=== PATIENT | female | born 1950 | race Caucasian/White ===

== ENCOUNTER 2016-06-22 15:34 | Inpatient (IN) | payer MEDICARE, BC, OTHER ==
[2016-06-22] MEDS ORDERED: ASPIRIN 81 MG CHEW PO STA (15:41)
[2016-06-22] MEDS ORDERED: DILTIAZEM 5 MG/ML 5 ML VIAL IVP STA (15:43)
--- NOTE | 2016-06-22 15:45 | ED ---
Chest Pain HPI - General Chief Complaint: Chest Pain Stated Complaint: Chest pain Time Seen by Provider: 06/22/16 15:40 Source: patient, EMS Mode of arrival: EMS Limitations: no limitations - History of Present Illness Initial Comments: This is 65-year-old woman brought by EMS to be evaluated for chest discomfort. The patient states that she had been having pains to the left upper chest going on for number of hours. She also had some shortness of breath. Patient did not have any diaphoresis, nausea or vomiting. Patient does have previous history of atrial fibrillation, and telemetry EKG from EMS did appear to show A. fib with RVR and a bundle-branch block. MD Complaint: chest pain Onset/Timin -: hour(s) Onset: during rest Pain Location: left chest Pain Radiation: none Severity: moderate Quality: aching Consistency: constant Improves With: nothing Worsens With: nothing Treatments Prior to Arrival: nitroglycerin - Related Data Home Medications Medication Instructions Recorded Confirmed Amiodarone [Cordarone] 400 mg PO DAILY 06/22/16 06/22/16 Anastrozole [Arimidex] 1 mg PO DAILY 06/22/16 06/22/16 Aspirin 325 mg PO HS 06/22/16 06/22/16 Benztropine Mesylate [Cogentin] 1 mg PO BID 06/22/16 06/22/16 Cholecalciferol [Vitamin D3] 4,000 unit PO HS 06/22/16 06/22/16 DULoxetine HCL [Cymbalta] 60 mg PO DAILY 06/22/16 06/22/16 Docusate [Colace] 100 mg PO HS 06/22/16 06/22/16 HYDROcodone/APAP 10-325MG [[place] 1 tab PO Q4HR PRN 06/22/16 06/22/16 10-325] Hydrocortisone Cream 1 applic TOPICAL BID 06/22/16 06/22/16 [Hydrocortisone 1% Cream] INSULIN LISPRO (humaLOG) [HumaLOG] 8 units SQ TID@0700,1100,1700 06/22/16 Insulin Glargine [Lantus] 20 unit SQ HS 06/22/16 06/22/16 Menthol [Biofreeze] 1 applic TOPICAL BID 06/22/16 06/22/16 Menthol [Biofreeze] 1 applic TOPICAL BID 06/22/16 06/22/16 Minerin Lotion(Emollient) 1 applic TOPICAL BID 06/22/16 06/22/16 Nystatin [Nystop] 1 applic TOPICAL BID 06/22/16 06/22/16 OLANZapine [ZyPREXA] 7.5 mg PO DAILY 06/22/16 06/22/16 Omeprazole 20 mg PO DAILY 06/22/16 06/22/16 Petrolatum, White [Aquaphor] 1 applic TOPICAL BID 06/22/16 06/22/16 Potassium Chloride ER [K-Dur 10] 10 meq PO BID 06/22/16 06/22/16 lamoTRIgine [LaMICtal] 150 mg PO Q12H 06/22/16 06/22/16 Allergies Allergy/AdvReac Type Severity Reaction Status Date / Time lorazepam [From Ativan] Allergy Unknown Verified 06/22/16 16:21 nabumetone [From Relafen] Allergy Rash/Hives Verified 06/22/16 16:21 Sulfa (Sulfonamide Allergy Rash/Hives Verified 06/22/16 16:21 Antibiotics) Review of Systems ROS Statement: Those systems with pertinent positive or pertinent negative responses have been documented in the HPI. ROS Other: All systems not noted in ROS Statement are negative. Constitutional: Denies: fever, chills Respiratory: Reports: dyspnea. Denies: cough, wheezes, hemoptysis Cardiovascular: Reports: chest pain, orthopnea. Denies: palpitations, edema, syncope Gastrointestinal: Denies: abdominal pain, nausea, vomiting Genitourinary: Denies: dysuria, hematuria Musculoskeletal: Denies: back pain Skin: Denies: rash Neurological: Denies: headache, weakness, numbness EKG Findings - EKG Comments: EKG Findings:: The patient's QRS morphology is similar to previous EKG from December 2010. - EKG Results: EKG: interpreted by ERMD EKG shows: atrial fibrillation (Rate is approximately 136 beats per minute) - Blocks, Somis, Hypertrophy, ST Abn: AV and intraventricular conduction: right bundle branch block (fixed/ intermittent, complete/incomplete), left posterior fascicular block Repolarization changes or abnormalities: ST or T wave suggestive of ischemia Past Medical History Past Medical History: Atrial Fibrillation, Coronary Artery Disease (CAD), Cancer , Chest Pain / Angina, Myocardial Infarction ([place]) Additional Past Medical History / Comment(s): sleep apnea; History of Any Multi-Drug Resistant Organisms: None Reported Past Surgical History: Cholecystectomy, Heart Catheterization With Stent, Hysterectomy Past Psychological History: No Psychological Hx Reported Smoking Status: Never smoker Past Alcohol Use History: None Reported Past Drug Use History: None Reported General Exam Limitations: no limitations General appearance: alert, in distress, obese Head exam: Present: atraumatic, normocephalic Eye exam: Present: normal appearance. Absent: scleral icterus, conjunctival injection ENT exam: Present: mucous membranes dry Neck exam: Present: normal inspection Respiratory exam: Present: rales (Bilateral bases). Absent: respiratory distress, wheezes, rhonchi, stridor, decreased breath sounds, prolonged expiratory Cardiovascular Exam: Present: tachycardia (Rate approximately 136 bpm), irregular rhythm, systolic murmur. Absent: normal heart sounds, diastolic murmur, rubs, gallop GI/Abdominal exam: Present: soft. Absent: distended, tenderness, guarding, rebound, mass Extremities exam: Present: normal inspection, normal capillary refill. Absent: pedal edema, calf tenderness Back exam: Present: normal inspection, full ROM. Absent: CVA tenderness (R), CVA tenderness (L) Neurological exam: Present: alert, oriented X3 Skin exam: Present: warm, dry, intact, normal color. Absent: rash Course Vital Signs 06/22/16 06/22/16 06/22/16 15:37 15:49 15:55 Temperature 99.1 F Pulse Rate 135 H 136 H Pulse Rate [ 141 H Legal Director ] Respiratory 18 18 Rate Blood Pressure 186/133 O2 Sat by Pulse 94 L 98 Oximetry 06/22/16 06/22/16 06/22/16 16:35 16:52 17:33 Temperature Pulse Rate 107 H 100 107 H Pulse Rate [ Legal Director ] Respiratory 18 16 18 Rate Blood Pressure 176/135 106/70 122/62 O2 Sat by Pulse 97 96 98 Oximetry 06/22/16 18:57 Temperature Pulse Rate 80 Pulse Rate [ Legal Director ] Respiratory 18 Rate Blood Pressure 104/56 O2 Sat by Pulse 98 Oximetry - Reevaluation(s) Reevaluation #2: 06/22/16 19:07 The patient has subsequently reverted to sinus rhythm with a rate of 80 with she also has a right bundle-branch block and a left posterior fascicular block. Chest Pain MDM - [facility] Patient is 65-year-old woman who presents with chest pain and found to be in atrial fibrillation with rapid ventricular rate. There was a good response to the Cardizem bolus which slowed the patient's rate to the 80s to 100. The chest pain also resolved following the Cardizem. The case was discussed with cardiology briefly and there treatment recommendations incorporated. Patient will be admitted for telemetry monitoring and serial enzymes. Critical Care Time Critical Care Time: Yes (35 minutes) Disposition Clinical Impression: Chest pain, Atrial fibrillation with rapid ventricular response Disposition: ADMITTED IP TO THIS [facility] Condition: Serious Referrals: Kael Jon MD [Primary Care Provider] - 1-2 days
[2016-06-22 15:50] LABS: Glucose,Whole Blood 157 mg/dL (75-99)
[2016-06-22 15:58] LABS: Basophils % (A) 0 %; CHCM 34.4; Eosinophils # (A) 0.1 k/uL (0-0.7); Eosinophils % (A) 1 %; HCT 39.9 % (34.0-46.0); HDW 2.76; HGB 12.7 gm/dL (11.4-16.0); Luc # (Auto) 0.17; Luc % (Auto) 2; Lymphocytes # (A) 0.4 k/uL (1.0-4.8); Lymphocytes % (A) 5 %; MCH 29.9 pg (25.0-35.0); MCV 93.6 fL (80.0-100.0); Mean Platelet Volume 7.1; Monocytes # (A) 0.3 k/uL (0-1.0); Monocytes % (A) 4 %; Neutrophils # (A) 6.7 k/uL (1.3-7.7); Neutrophils % (A) 87 %; RBC 4.26 m/uL (3.80-5.40); RDW 14.2 % (11.5-15.5); WBC 7.7 k/uL (3.8-10.6); WBC (Perox) 8.24
[2016-06-22] MEDS: DILTIAZEM 125 MG in SODIUM CHLORIDE 0.9% 100 ML IV ONE (16:00)
[2016-06-22 16:09] LABS: ALT 36 U/L (9-52); AST 24 U/L (14-36); Alkaline Phosphatase 94 U/L (38-126); Anion Gap 13 mmol/L; Blood Urea Nitrogen 23 mg/dL (7-17); Calcium 8.1 mg/dL (8.4-10.2); Carbon Dioxide 22 mmol/L (22-30); Chloride 104 mmol/L (98-107); Glucose 117 mg/dL (74-99); Magnesium 1.8 mg/dL (1.6-2.3); Non-African American GFR(MDRD) >60 (>60 ml/min/1.73 sqM); Potassium 5.2 mmol/L (3.5-5.1); Sodium 139 mmol/L (137-145); Total Bilirubin 0.6 mg/dL (0.2-1.3); Total Protein 6.5 g/dL (6.3-8.2)
[2016-06-22 16:12] LABS: INR 0.9 (<1.1); Prothrombin Time 9.5 sec (9.0-12.0)
[2016-06-22 16:15] LABS: Partial Thromboplastin Time 21.8 sec (22.0-30.0)
[2016-06-22 16:21] LABS: Creatine Kinase 80 U/L (30-135)
--- NOTE | 2016-06-22 16:25 | XR ---
EXAMINATION TYPE: XR chest 1V portable DATE OF EXAM: 06/22/2016 4:19 PM COMPARISON: NONE HISTORY: Dysrhythmia, chest pain, altered mental status TECHNIQUE: Single frontal view of the chest is obtained. FINDINGS: Patient is rotated. Port-A-Cath is present in the left pectoral region, distal tip overlyi ng the caval atrial junction level. There is no pneumonia, pneumothorax, or pleural effusion evident. Cardiac mediastinal silhouette, pulmonary vascularity and levon are within normal limits. IMPRESSION: No acute process.
[2016-06-22 16:33] LABS: Creatine Kinase MB 1.1 ng/mL (0.0-2.4); Troponin I <0.012 ng/mL (0.000-0.034)
[2016-06-22] MEDS ORDERED: ENALAPRILAT 1.25 MG/ML 1 ML VIAL IVP STA (16:41)
[2016-06-22] MEDS ORDERED: NITROGLYCERIN SL TABS 0.4 MG TAB SUBLINGUAL PRN (16:41)
[2016-06-22] MEDS ORDERED: MORPHINE SULFATE 2 MG/ML SYRINGE IVP PRN (16:41)
[2016-06-22] MEDS: SODIUM CHLORIDE 0.9% 1,000 ML IV SCH (17:38)
[2016-06-22] MEDS: ACETAMINOPHEN TAB 325 MG TAB PO PRN (20:11)
[2016-06-22 20:51] LABS: Glucose,Whole Blood 212 mg/dL (75-99)
[2016-06-22 22:52] LABS: Creatine Kinase 124 U/L (30-135)
[2016-06-22] MEDS ORDERED: HYDROcodone/APAP 10-325MG 1 EACH TAB PO PRN (22:56)
[2016-06-22 23:06] LABS: Creatine Kinase MB 1.6 ng/mL (0.0-2.4); Troponin I <0.012 ng/mL (0.000-0.034)
[2016-06-22] MEDS: INSULIN GLARGINE 100 UNIT/ML 10 ML VIAL SQ SCH (23:58)
[2016-06-22] MEDS: lamoTRIgine 100 MG TAB PO SCH (23:58)
[2016-06-23 03:27] LABS: Cholesterol 162 mg/dL (<200); HDL Cholesterol 42 mg/dL (40-60); Triglycerides 94 mg/dL (<150)
[2016-06-23 03:38] LABS: Creatine Kinase 128 U/L (30-135)
[2016-06-23 03:51] LABS: Creatine Kinase MB 1.6 ng/mL (0.0-2.4); Troponin I <0.012 ng/mL (0.000-0.034)
[2016-06-23 05:19] LABS: Appearance,Urine Cloudy (Clear); Bacteria,Urine Rare /hpf; Bilirubin,Urine Negative (Negative); Glucose,Urine (UA) Negative (Negative); Ketones,Urine Negative (Negative); Leukocyte Esterase,Urine Large (Negative); Nitrite,Urine Negative (Negative); PH, Urine 7.5 (5.0-8.0); Particle Count 2675; Protein,Urine Trace (Negative); RBC,Urine 9 /hpf (0-5); Specific Gravity,Urine 1.009 (1.001-1.035); Squamous Epithelial Cell,Urine 1 /hpf (0-4); UA Billing (MACRO vs. MICRO) MICRO; Urobilinogen,Urine <2.0 mg/dL (<2.0); WBC,Urine >182 /hpf (0-5)
[2016-06-23 06:35] LABS: Glucose,Whole Blood 107 mg/dL (75-99)
[2016-06-23] MEDS: PANTOPRAZOLE 40 MG TABLET PO SCH (06:47)
[2016-06-23] MEDS: INSULIN LISPRO (humaLOG) 300 UNIT/3 ML VIAL SQ SCH ×4 (06:48→22:46)
--- NOTE | 2016-06-23 08:43 | P.CRDCN ---
History of Present Illness Consult date: 06/23/16 Requesting physician: Shree Alford Consult reason: atrial fibrillation Chief complaint: Chest pain History of present illness: This is a 65-year-old female who resides at [facility], she has a history of diabetes, hyperlipidemia, no hypertension, patient denies nicotine dependence or EtOH use, prior arrhythmia, unsure exactly the details of that, dementia, frequent falls, bipolar disorder, sleep apnea, coronary artery disease, again exact details of that are not available at this time, she was brought to the hospital yesterday with symptoms of chest pain that she describes as very sharp in nature. She states that she was short of breath, nauseated, and sweaty with the pain, patient also has had a recent fracture of her sacrum secondary to fall. When I questioned the patient about her recent fall she states that she passes out each time she falls. She does get intermittent dizziness according to her. Again the history is somewhat unreliable because of the patient's history of dementia, she states that she seen a video coordinator here in town recently, there is no record of that in the office. On presentation here patient was found to be in atrial fibrillation with a rapid ventricular response and a right bundle branch block pattern. CBC normal, potassium 5.2, BUN 23, creatinine 0.9. Magnesium level I.8. Troponins 3 been negative. Positive UTI. Asked x-ray performed on admission does not reveal any acute process. At the time of my examination this morning, patient states she has mild sharp chest pain with no difficulty in breathing. Past Medical History Past Medical History: Atrial Fibrillation, Coronary Artery Disease (CAD), Cancer , Chest Pain / Angina, Diabetes Mellitus, GERD/Reflux, Hypertension, Osteoarthritis (OA), Sleep Apnea/CPAP/BIPAP Additional Past Medical History / Comment(s): PER PAST MEDICAL HX-ARTHRITIS,BP, VARICOSE VEINS, SINUS PROBLEMS, SLEEP APNEA-NO CPAP USED,GERD, BIPOLAR/MANIC DEPRESSION-PAST H[place]IZATION [place]ICIDAL THOUGHTS [place] [id number], HX OF FALLS (PAST FX TO SACRUM AND RT RIB), DX 12-04-15 MALIGNANT NEOPLASM UTERUS-PER ECF NO SX BUT HAS BEEN RECEIVING RADIATION TX.UTI'S. PER ECF NO HX THAT THEY ARE AWARE OF OK/CHF History of Any Multi-Drug Resistant Organisms: None Reported Past Surgical History: Adenoidectomy, Section, Cholecystectomy, Heart Catheterization With Stent, Hysterectomy, Tonsillectomy, Tubal Ligation Additional Past Surgical History / Comment(s): PER PAST HX IN 2007 HEART CATH(5 STENTS),KAMRAN CARPAL TUNNEL,[facility] INJ(BACK)/RADIO FREQ FACET BLOCK/SACRAL X2. Past Anesthesia/Blood Transfusion Reactions: Unable to Obtain Date of Last Stent Placement:: UNK Past Psychological History: No Psychological Hx Reported Smoking Status: Never smoker Past Alcohol Use History: None Reported Past Drug Use History: None Reported - Past Family History Father Family Medical History: Unable to Obtain Mother Family Medical History: Unable to Obtain Medications and Allergies Home Medications Medication Instructions Recorded Confirmed Type Amiodarone [Cordarone] 400 mg PO DAILY 06/22/16 06/22/16 History Anastrozole [Arimidex] 1 mg PO DAILY 06/22/16 06/22/16 History Aspirin 325 mg PO HS 06/22/16 06/22/16 History Benztropine Mesylate [Cogentin] 1 mg PO BID 06/22/16 06/22/16 History Cholecalciferol [Vitamin D3] 4,000 unit PO HS 06/22/16 06/22/16 History DULoxetine HCL [Cymbalta] 60 mg PO DAILY 06/22/16 06/22/16 History Docusate [Colace] 100 mg PO HS 06/22/16 06/22/16 History HYDROcodone/APAP 10-325MG [[place] 1 tab PO Q4HR PRN 06/22/16 06/22/16 History 10-325] Hydrocortisone Cream 1 applic TOPICAL BID 06/22/16 06/22/16 History [Hydrocortisone 1% Cream] INSULIN LISPRO (humaLOG) [HumaLOG] 8 units SQ TID@0700,1100,1700 06/22/16 History Insulin Glargine [Lantus] 20 unit SQ HS 06/22/16 06/22/16 History Menthol [Biofreeze] 1 applic TOPICAL BID 06/22/16 06/22/16 History Menthol [Biofreeze] 1 applic TOPICAL BID 06/22/16 06/22/16 History Minerin Lotion(Emollient) 1 applic TOPICAL BID 06/22/16 06/22/16 History Nystatin [Nystop] 1 applic TOPICAL BID 06/22/16 06/22/16 History OLANZapine [ZyPREXA] 7.5 mg PO DAILY 06/22/16 06/22/16 History Omeprazole 20 mg PO DAILY 06/22/16 06/22/16 History Petrolatum, White [Aquaphor] 1 applic TOPICAL BID 06/22/16 06/22/16 History Potassium Chloride ER [K-Dur 10] 10 meq PO BID 06/22/16 06/22/16 History lamoTRIgine [LaMICtal] 150 mg PO Q12H 06/22/16 06/22/16 History Allergies Allergy/AdvReac Type Severity Reaction Status Date / Time lorazepam [From Ativan] Allergy Unknown Verified 06/22/16 16:21 nabumetone [From Relafen] Allergy Rash/Hives Verified 06/22/16 16:21 Sulfa (Sulfonamide Allergy Rash/Hives Verified 06/22/16 16:21 Antibiotics) Physical Exam Vitals: Vital Signs Temp Pulse Pulse Pulse Resp BP BP 06/23/16 03:10 97.0 F L 76 18 92/53 06/23/16 00:00 97.1 F L 83 83 18 108/57 06/22/16 19:40 97.1 F L 83 83 18 116/58 06/22/16 18:57 80 18 104/56 06/22/16 17:33 107 H 18 122/62 06/22/16 16:52 100 16 106/70 Pulse Ox 06/23/16 03:10 95 06/23/16 00:00 96 06/22/16 19:40 96 06/22/16 18:57 98 06/22/16 17:33 98 06/22/16 16:52 96 Intake and Output 06/22/16 06/23/16 06/23/16 22:59 06:59 14:59 Intake Total 860 Output Total 200 1050 Balance -200 -190 Intake: IV 160 Sodium Chloride 0.9% 1, 160 000 ml @ 20 mls/hr IV . Q24H [facility] Rx#:[id number] Oral 700 Output: Urine 200 1050 Other: Voiding Method Toilet Toilet # Voids 1 Weight 90.5 kg PHYSICAL EXAMINATION: HEENT: Head is atraumatic, normocephalic. Pupils equal, round. Neck is supple. There is no elevated jugular venous pressure. HEART EXAMINATION: Heart S1 S2 1 systolic murmur is heard. CHEST EXAMINATION: Lungs are clear to auscultation and precussion. No chest wall tenderness is noted on palpation or with deep breathing. ABDOMEN: Soft, nontender. Bowel sounds are heard. No organomegaly noted. EXTREMITIES: 2+ peripheral pulses with no evidence of peripheral edema and no calf tenderness noted. NEUROLOGIC [patient is awake, alert and oriented -2 . Results 06/22/16 15:42 06/22/16 15:42 Cardiac Enzymes 06/22/16 06/23/16 Range/Units 21:53 02:57 CK-MB (CK-2) 1.6 1.6 (0.0-2.4) ng/mL Troponin I <0.012 <0.012 (0.000-0.034) ng/mL Lipids 06/23/16 Range/Units 02:57 Triglycerides 94 (<150) mg/dL Cholesterol 162 (<200) mg/dL HDL Cholesterol 42 (40-60) mg/dL Current Medications Generic Name Dose Route Start Last Admin Trade Name Freq PRN Reason Stop Dose Admin Acetaminophen 650 mg 06/22/16 16:41 06/22/16 20:11 Tylenol Tab PO 650 mg Q4HR PRN Administration Mild Pain Acetaminophen/Hydrocodone Bitart 1 each 06/22/16 22:56 [place] 10 PO Q4HR PRN Moderate-Severe Pain Amiodarone HCl 400 mg 06/23/16 09:00 Cordarone PO DAILY [facility] Anastrozole 1 mg 06/23/16 09:00 Arimidex PO DAILY [facility] Aspirin 325 mg 06/23/16 09:00 Aspirin PO DAILY [facility] Benztropine Mesylate 1 mg 06/23/16 09:00 Cogentin PO BID [facility] Cholecalciferol 4,000 unit 06/23/16 21:00 Vitamin D3 PO HS [facility] Docusate Sodium 100 mg 06/23/16 21:00 Colace PO HS [facility] Duloxetine HCl 60 mg 06/23/16 09:00 Cymbalta PO DAILY [facility] Hydrocortisone 1 applic 06/23/16 09:00 Hydrocortisone 1% Cream TOPICAL BID [facility] Diltiazem HCl 125 mg/ Sodium 125 mls @ 5 mls/hr 06/22/16 16:00 06/22/16 16:00 Chloride IV 06/23/16 15:59 5 mg/hr .Q24H ONE 5 mls/hr 5 MG/HR Administration Sodium Chloride 1,000 mls @ 20 mls/hr 06/22/16 16:45 06/22/16 17:38 Saline 0.9% IV 20 mls/hr .Q24H [facility] Administration Insulin Glargine 20 unit 06/22/16 23:00 06/22/16 23:58 Lantus SQ 20 unit HS [facility] Administration Insulin Human Lispro 0 unit 06/23/16 07:30 06/23/16 06:48 Humalog SQ Not Given ACHS [facility] Protocol Lamotrigine 150 mg 06/22/16 23:00 06/22/16 23:58 Lamictal PO 150 mg Q12H [facility] Administration Morphine Sulfate 2 mg 06/22/16 16:41 Morphine Sulfate (Inj) IVP Q5M PRN Chest Pain Multi-Ingred Cream/Lotion/Oil/Oint 1 applic 06/23/16 09:00 Eucerin Cream TOPICAL BID [facility] Nitroglycerin 0.4 mg 06/22/16 16:41 Nitrostat SUBLINGUAL Q5M PRN Chest Pain Nystatin 1 applic 06/23/16 09:00 Mycostatin Powder TOPICAL BID [facility] Olanzapine 7.5 mg 06/23/16 09:00 Zyprexa PO DAILY [facility] Pantoprazole Sodium 40 mg 06/23/16 07:30 06/23/16 06:47 Protonix PO 40 mg AC-BRKFST [facility] Administration Petrolatum 1 applic 06/23/16 09:00 Aquaphor TOPICAL BID [facility] Potassium Chloride 10 meq 06/23/16 09:00 K-Dur 10 PO BID [facility] Intake and Output 06/22/16 06/23/16 06/23/16 22:59 06:59 14:59 Intake Total 860 Output Total 200 1050 Balance -200 -190 Intake: IV 160 Sodium Chloride 0.9% 1, 160 000 ml @ 20 mls/hr IV . Q24H [facility] Rx#:[id number] Oral 700 Output: Urine 200 1050 Other: Voiding Method Toilet Toilet # Voids 1 Weight 90.5 kg EKG Interpretations (text) EKG shows atrial fibrillation with a rapid ventricular response and a right bundle branch block pattern. Assessment and Plan Plan: Assessment and plan #1 atrial fibrillation, paroxysmal in nature, with rapid ventricular response, patient currently in normal sinus rhythm. Right bundle branch block pattern. On Cardizem drip at 5 mg per hour currently. #2 chest pain, atypical in nature. Troponins negative 3. #3 diabetes #4 hyperlipidemia #5 history of coronary artery disease, exact details unavailable. #6 bipolar disorder #7 recent falls with questionable syncope #8 sacral fracture #9 questionable prior history of atrial fibrillation, on amiodarone 400 mg daily as an outpatient Plan We will obtain an echocardiogram with Doppler study. We will also obtain free T4 and TSH. Based on the patient's CHADSVASC score, she does need to be on anticoagulation for stroke prevention. We will start Eliquis 2-1/2 mg one tablet by mouth twice a day and check regarding coverage for this. We'll decrease her aspirin 81 mg daily. Discontinue Cardizem drip. Further recommendations to follow. DNP note has been reviewed, I agree with a documented findings and plan of care. Patient was seen and examined.
[2016-06-23] MEDS: DULoxetine HCL 60 MG CAPSULE.DR PO SCH (08:44)
[2016-06-23] MEDS: OLANZapine 2.5 MG TAB PO SCH (08:44)
[2016-06-23] MEDS: AMIODARONE 200 MG TAB PO SCH (08:44)
[2016-06-23] MEDS: BENZTROPINE MESYLATE 1 MG TAB PO SCH ×2 (08:44→21:29)
[2016-06-23] MEDS: ANASTROZOLE 1 MG TAB PO SCH (08:45)
[2016-06-23] MEDS: POTASSIUM CHLORIDE ER 10 MEQ TAB.ER.PRT PO SCH ×2 (08:45→21:31)
[2016-06-23] MEDS ORDERED: ASPIRIN 325 MG TAB PO SCH ×2 (09:00→21:00)
[2016-06-23] MEDS ORDERED: NON-FORMULARY DRUG (Menthol [Biofreeze] 1 APPLIC) TOPICAL SCH (09:00)
[2016-06-23] MEDS: DILTIAZEM 125 MG in SODIUM CHLORIDE 0.9% 100 ML IV ONE (09:18)
[2016-06-23 10:24] LABS: Hemoglobin A1C 6.3 % (4.2-6.1)
[2016-06-23 11:44] LABS: Glucose,Whole Blood 111 mg/dL (75-99)
[2016-06-23] MEDS: APIXABAN 2.5 MG TABLET PO SCH ×2 (11:57→21:29)
[2016-06-23] MEDS: ASPIRIN 81 MG CHEW PO SCH (12:28)
[2016-06-23] MEDS: HYDROCORTISONE 1% CREAM 30 GM TUBE TOPICAL SCH ×2 (12:31→22:46)
[2016-06-23] MEDS: NYSTATIN 100,000 UNIT/GM POWD 15 GM TOPICAL SCH ×2 (12:31→21:30)
[2016-06-23] MEDS: MINERAL OIL-WHITE PETROLATUM 120 GM JAR TOPICAL SCH ×2 (12:31→22:47)
[2016-06-23] MEDS: PETROLATUM, WHITE OINT 50 GM TUBE TOPICAL SCH ×2 (12:32→21:30)
[2016-06-23] MEDS: lamoTRIgine 100 MG TAB PO SCH ×2 (12:33→22:53)
--- NOTE | 2016-06-23 12:39 | ECHOF ---
Referral Reason:chest pain MEASUREMENTS -------- HEIGHT: 172.7 cm WEIGHT: 90.3 kg BP: 108/58 RVIDd: 2.9 cm (< 3.3) IVSd: 1.1 cm (0.6 - 1.1) LVIDd: 4.5 cm (3.9 - 5.3) LVPWd: 1.0 cm (0.6 - 1.1) IVSs: 1.7 cm LVIDs: 2.7 cm LVPWs: 1.4 cm LA Diam: 3.6 cm (2.7 - 3.8) LAESV Index (A-L): 26.69 ml/m Ao Diam: 3.5 cm (2.0 - 3.7) AV Cusp: 1.7 cm (1.5 - 2.6) LA Diam: 3.6 cm (2.7 - 3.8) MV EXCURSION: 16.659 mm (> 18.000) MV EF SLOPE: 58 mm/s (70 - 150) EPSS: 1.1 cm MV E Brendan: 0.82 m/s MV DecT: 270 ms MV A Brendan: 0.35 m/s MV E/A Ratio: 2.33 RAP: 5.00 mmHg RVSP: 32.90 mmHg FINDINGS -------- Undetermined rhythm. This was a technically adequate study. There is mild concentric left ventricular hypertrophy. Overall left ventricular systolic function is low-normal with, an EF between 50 - 55 %. The right ventricle is normal in size. Normal LA size by volume 22+/-6 ml/m2. The right atrial size is normal. There is mild aortic valve sclerosis. There is no evidence of aortic regurgitation. Mild mitral annular calcification present. Mild mitral regurgitation is present. Mild tricuspid regurgitation present. There is no evidence of pulmonary hypertension. The right ventricular systolic pressure, as measured by Doppler, is 32.90mmHg. There is no pulmonic regurgitation present. The aortic root size is normal. There is no pericardial effusion. CONCLUSIONS -------- 1. There is mild concentric left ventricular hypertrophy. 2. Overall left ventricular systolic function is low-normal with, an EF between 50 - 55 %. 3. There is mild aortic valve sclerosis. 4. Mild mitral annular calcification present. 5. Mild mitral regurgitation is present. 6. Mild tricuspid regurgitation present. 7. There is no evidence of pulmonary hypertension. 8. The right ventricular systolic pressure, as measured by Doppler, is 32.90mmHg. ECONOMIC GEOGRAPHER: Vianca Rust RDCS
[2016-06-23 16:47] LABS: Glucose,Whole Blood 122 mg/dL (75-99)
--- NOTE | 2016-06-23 18:55 | HP ---
DATE OF ADMISSION: 06/22/2016 PRESENTING COMPLAINT: Heart racing. HISTORY OF PRESENTING COMPLAINT: This is a 65-year-old patient who is a resident of [facility] with a rather extensive medical history. Patient's chronic stable medical conditions include coronary artery disease, diabetes, GERD, hypertension, osteoarthritis, arthritis. Patient also has sleep apnea but does not use CPAP machine. Patient does use a walker; can walk a few steps. Patient was admitted with atrial fibrillation with rapid ventricular rate and was put on a Cardizem drip, admitted for the same. REVIEW OF SYSTEMS: CONSTITUTIONAL: Tired. HEENT: None. RESPIRATORY: None. CARDIOVASCULAR: As above. GASTROINTESTINAL: Heartburn. GENITOURINARY: None. MUSCULOSKELETAL: Pain in the joints. DERMATOLOGICAL: None. HEMATOLOGIC: None. LYMPHATICS: None. PSYCHIATRY: History of bipolar disorder. NEUROLOGICAL: None. PAST MEDICAL HISTORY: 1. Atrial fibrillation. 2. Coronary artery disease with stent. 3. Diabetes mellitus, type 2. 4. GERD. 5. Hypertension. 6. Osteoarthritis. 7. Sleep apnea; does not use CPAP. 8. Bipolar/manic depression. PAST SURGICAL HISTORY: 1. Adenoidectomy. 2. . 3. Cholecystectomy. 4. Cardiac catheterization with stent. 5. Hysterectomy. 6. Tonsillectomy. 7. Tubal ligation. 8. Bilateral carpal tunnel surgery. 9. Pain clinic procedure to the lower back. SOCIAL HISTORY: Resident of [facility]. Never a smoker. FAMILY HISTORY: Reviewed; noncontributory to presentation. HOME MEDICATIONS: 1. Lamictal 150 mg p.o. q.12. 2. Potassium 10 mEq b.i.d. 3. Aquaphor topically b.i.d. 4. Omeprazole 20 mg p.o. daily. 5. Zyprexa 7.5 p.o. daily. 6. Nystop topically b.i.d. 7. Minerin lotion topically b.i.d. 8. Biofreeze topically b.i.d. 9. Lantus 20 units subcutaneously at bedtime. 10. Lispro 8 units t.i.d. 11. Hydrocortisone topically b.i.d. 12. [place] 10 one tablet p.o. q.4 p.r.n. 13. Colace 100 mg p.o. at bedtime. 14. Cymbalta 60 mg p.o. daily. 15. Vitamin D3 4000 units p.o. at bedtime. 16. Cogentin 1 mg p.o. b.i.d. 17. Aspirin 325 p.o. at bedtime. 18. Arimidex 1 mg p.o. daily. 19. Cordarone 400 mg p.o. daily. ALLERGIES: 1. ATIVAN. 2. RELAFEN. 3. SULFA. PHYSICAL EXAMINATION: VITAL SIGNS ON PRESENTATION: Temperature 99.1, pulse 135, respiration 18, blood pressure 186/133. Pulse ox 94% on room air on presentation. GENERAL APPEARANCE: Lying in bed, not in distress. Tired-appearing. EYES: Pupils equal. Conjunctivae normal. HEENT: External appearance of nose and ears normal. Oral cavity normal. NECK: JVD not raised. Mass with palpable. RESPIRATORY: Effort normal. LUNGS: Fair air entry. CARDIOVASCULAR: Heart sounds irregular. No edema. ABDOMEN: Soft, nontender. Liver and spleen not palpable. LYMPHATIC: No lymph node palpable in neck or axillae. PSYCHIATRY: Awake. Answering simple questions. NEUROLOGICAL: Pupils equal. Cranial nerves grossly intact. INVESTIGATIONS: White count 7.7, hemoglobin 12.7. Potassium 5.2. BUN 23, creatinine 0.91. Troponin x3 negative. TSH 0.44. UA positive for leukocyte esterase. EKG: Atrial fibrillation with rapid ventricular rate. ASSESSMENT: 1. Persistent atrial fibrillation with rapid ventricular rate in a patient with underlying coronary artery disease. 2. Coronary artery disease with prior history of stent. 3. Diabetes mellitus, type 2, chronically on insulin. 4. Gastroesophageal reflux disease. 5. Essential hypertension. 6. Primary osteoarthritis in multiple joints, bilateral. 7. Bipolar disorder. PLAN: Patient was put on a Cardizem drip. Home medications are resumed. Cardiology was consulted.
[2016-06-23 20:34] LABS: Glucose,Whole Blood 150 mg/dL (75-99)
[2016-06-23] MEDS: CHOLECALCIFEROL 1,000 UNIT TAB PO SCH (21:29)
[2016-06-23] MEDS: DOCUSATE 100 MG CAP PO SCH (21:30)
[2016-06-23] MEDS: INSULIN GLARGINE 100 UNIT/ML 10 ML VIAL SQ SCH (21:30)
[2016-06-24 06:21] LABS: Glucose,Whole Blood 98 mg/dL (75-99)
[2016-06-24] MEDS: PANTOPRAZOLE 40 MG TABLET PO SCH (06:21)
[2016-06-24] MEDS: SODIUM CHLORIDE 0.9% 1,000 ML IV SCH ×2 (08:46→17:14)
[2016-06-24] MEDS: INSULIN LISPRO (humaLOG) 300 UNIT/3 ML VIAL SQ SCH ×4 (08:48→22:52)
[2016-06-24] MEDS: APIXABAN 2.5 MG TABLET PO SCH ×2 (08:49→22:50)
[2016-06-24] MEDS: ASPIRIN 81 MG CHEW PO SCH (08:49)
[2016-06-24] MEDS: ANASTROZOLE 1 MG TAB PO SCH (08:51)
[2016-06-24] MEDS: BENZTROPINE MESYLATE 1 MG TAB PO SCH ×2 (08:54→22:49)
[2016-06-24] MEDS: DULoxetine HCL 60 MG CAPSULE.DR PO SCH (08:55)
[2016-06-24] MEDS: MINERAL OIL-WHITE PETROLATUM 120 GM JAR TOPICAL SCH ×2 (08:55→22:53)
[2016-06-24] MEDS: NYSTATIN 100,000 UNIT/GM POWD 15 GM TOPICAL SCH ×2 (08:55→22:54)
[2016-06-24] MEDS: PETROLATUM, WHITE OINT 50 GM TUBE TOPICAL SCH ×2 (08:56→22:54)
[2016-06-24] MEDS: OLANZapine 2.5 MG TAB PO SCH (08:56)
[2016-06-24] MEDS: HYDROCORTISONE 1% CREAM 30 GM TUBE TOPICAL SCH ×2 (08:56→22:53)
[2016-06-24] MEDS: POTASSIUM CHLORIDE ER 10 MEQ TAB.ER.PRT PO SCH ×2 (08:57→23:06)
[2016-06-24] MEDS: lamoTRIgine 100 MG TAB PO SCH ×2 (11:23→23:07)
[2016-06-24 11:43] LABS: Glucose,Whole Blood 230 mg/dL (75-99)
[2016-06-24] MEDS: AMIODARONE 200 MG TAB PO SCH ×2 (12:08→12:28)
--- NOTE | 2016-06-24 15:08 | P.PN ---
Subjective Principal diagnosis: Paroxysmal atrial fibrillation This is a 65-year-old female who resides at [facility], she has a history of diabetes, hyperlipidemia, no hypertension, patient denies nicotine dependence or EtOH use, prior arrhythmia, unsure exactly the details of that, dementia, frequent falls, bipolar disorder, sleep apnea, coronary artery disease, again exact details of that are not available at this time, she was brought to the hospital yesterday with symptoms of chest pain that she describes as very sharp in nature. She states that she was short of breath, nauseated, and sweaty with the pain, patient also has had a recent fracture of her sacrum secondary to fall. When I questioned the patient about her recent fall she states that she passes out each time she falls. She does get intermittent dizziness according to her. Again the history is somewhat unreliable because of the patient's history of dementia, she states that she seen a section 8 property manager here in town recently, there is no record of that in the office. On presentation here patient was found to be in atrial fibrillation with a rapid ventricular response and a right bundle branch block pattern. 06/24/16 ... Patient seen and examined today, overall feeling much better. Echo was performed which revealed an ejection fraction of 50-55%. She is currently on Eliquis 2.5 mg one tablet by mouth twice a day, we will decrease amiodarone to 200 mg daily today. Objective - Vital Signs Vital signs: Vital Signs Temp 98.2 F 06/24/16 12:00 Pulse 89 06/24/16 12:00 Resp 18 06/24/16 12:00 BP 128/82 06/24/16 12:00 Pulse Ox 96 06/24/16 12:00 Intake & Output 06/23/16 06/24/16 06/24/16 18:59 06:59 18:59 Intake Total 876.5 940 Output Total 460 200 Balance 416.5 740 Weight 89.6 kg Intake: IV 240 Sodium Chloride 0.9% 1, 240 000 ml @ 20 mls/hr IV . Q24H [facility] Rx#:[id number] Intake, IV Titration 86.5 Amount Diltiazem 125 mg In 86.5 Sodium Chloride 0.9% 100 ml @ 5 MG/HR 5 mls/hr IV .Q24H [facility] Rx#:[id number] Oral 790 700 Output: Urine 460 200 Other: Voiding Method Toilet Toilet Toilet # Voids 1 - Exam PHYSICAL EXAMINATION: HEENT: Head is atraumatic, normocephalic. Pupils equal, round. Neck is supple. There is no elevated jugular venous pressure. HEART EXAMINATION: Heart S1 S2 1 systolic murmur is heard. CHEST EXAMINATION: Lungs are clear to auscultation and precussion. No chest wall tenderness is noted on palpation or with deep breathing. ABDOMEN: Soft, nontender. Bowel sounds are heard. No organomegaly noted. EXTREMITIES: 2+ peripheral pulses with no evidence of peripheral edema and no calf tenderness noted. NEUROLOGIC [patient is awake, alert and oriented -2 . - Labs CBC & Chem 7: 06/22/16 15:42 06/22/16 15:42 Labs: Abnormal Lab Results - Last 24 Hours (Table) 06/23/16 06/23/16 06/24/16 Range/Units 16:45 20:33 11:38 POC Glucose (mg/dL) 122 H 150 H 230 H (75-99) mg/dL Assessment and Plan Plan: Assessment and plan #1 atrial fibrillation, paroxysmal in nature, with rapid ventricular response, patient currently in normal sinus rhythm. Right bundle branch block pattern. On #2 chest pain, atypical in nature. Troponins negative 3. #3 diabetes #4 hyperlipidemia #5 history of coronary artery disease, exact details unavailable. #6 bipolar disorder #7 recent falls with questionable syncope #8 sacral fracture #9 questionable prior history of atrial fibrillation, on amiodarone 400 mg daily as an outpatient Plan From cardiology's perspective, we will recommend to continue the current medications. We will follow this patient with you now on an as-needed basis only, please don't hesitate to call with any questions. DNP note has been reviewed, I agree with a documented findings and plan of care. Patient was seen and examined.
[2016-06-24 16:52] LABS: Glucose,Whole Blood 164 mg/dL (75-99)
[2016-06-24] MEDS: ATENOLOL 12.5 MG TAB PO SCH (17:56)
[2016-06-24 21:07] LABS: Glucose,Whole Blood 133 mg/dL (75-99)
--- NOTE | 2016-06-24 22:19 | PN ---
DATE OF SERVICE: 06/24/2016 PRESENTING COMPLAINT: Heart racing. INTERVAL HISTORY: This patient was admitted with atrial fibrillation with rapid ventricular rate. Feeling better. Lying in bed. Did tolerate some diet. Review of systems done for constitutional, cardiovascular, GI, pulmonary; relevant findings as above. Current medications are reviewed that include Cordarone. On examination, temperature 98.6, pulse 81, respiration 18, blood pressure 123/69, pulse ox 98% on room air. GENERAL APPEARANCE: Lying in bed, more comfortable. EYES: Pupils equal. Conjunctivae normal. NECK: JVD not raised. Mass not palpable. RESPIRATORY: Effort normal. LUNGS: Fair air entry. CARDIOVASCULAR: Heart sounds irregular. No edema. ABDOMEN: Soft, nontender. PSYCHIATRY: Awake. Answering questions. INVESTIGATIONS: Accu-Cheks are noted. ASSESSMENT: 1. Persistent atrial fibrillation with rapid ventricular rate on presentation from underlying coronary artery disease. 2. Coronary artery disease with prior history of stent. 3. Diabetes mellitus, type 2, chronically on insulin. 4. Gastroesophageal reflux disease. 5. Essential hypertension. 6. Primary osteoarthritis in multiple joints, bilateral. 7. Bipolar disorder. 8. Acute urinary tract infection. PLAN: Patient has reverted back to sinus rhythm. Will put the patient on a small dose of atenolol to hopefully prevent her from going back in the rhythm. Looking at discharge planning. Will also add Keflex for the UTI.
[2016-06-24] MEDS: DOCUSATE 100 MG CAP PO SCH (22:50)
[2016-06-24] MEDS: CHOLECALCIFEROL 1,000 UNIT TAB PO SCH (22:50)
[2016-06-24] MEDS: INSULIN GLARGINE 100 UNIT/ML 10 ML VIAL SQ SCH (22:53)
[2016-06-24] MEDS: CEPHALEXIN 250 MG CAP PO SCH (23:05)
[2016-06-25 07:08] LABS: Glucose,Whole Blood 125 mg/dL (75-99)
[2016-06-25] MEDS: PANTOPRAZOLE 40 MG TABLET PO SCH (07:23)
[2016-06-25] MEDS: INSULIN LISPRO (humaLOG) 300 UNIT/3 ML VIAL SQ SCH ×2 (08:40→13:00)
[2016-06-25] MEDS: ASPIRIN 81 MG CHEW PO SCH (09:20)
[2016-06-25] MEDS: AMIODARONE 200 MG TAB PO SCH (09:20)
[2016-06-25] MEDS: ANASTROZOLE 1 MG TAB PO SCH (09:20)
[2016-06-25] MEDS: APIXABAN 2.5 MG TABLET PO SCH (09:20)
[2016-06-25] MEDS: CEPHALEXIN 250 MG CAP PO SCH ×2 (09:21→15:44)
[2016-06-25] MEDS: DULoxetine HCL 60 MG CAPSULE.DR PO SCH (09:21)
[2016-06-25] MEDS: BENZTROPINE MESYLATE 1 MG TAB PO SCH (09:21)
[2016-06-25] MEDS: ATENOLOL 12.5 MG TAB PO SCH (09:21)
[2016-06-25] MEDS: MINERAL OIL-WHITE PETROLATUM 120 GM JAR TOPICAL SCH (09:22)
[2016-06-25] MEDS: HYDROCORTISONE 1% CREAM 30 GM TUBE TOPICAL SCH (09:22)
[2016-06-25] MEDS: OLANZapine 2.5 MG TAB PO SCH (09:22)
[2016-06-25] MEDS: NYSTATIN 100,000 UNIT/GM POWD 15 GM TOPICAL SCH (09:22)
[2016-06-25] MEDS: lamoTRIgine 100 MG TAB PO SCH (09:23)
[2016-06-25] MEDS: POTASSIUM CHLORIDE ER 10 MEQ TAB.ER.PRT PO SCH (09:23)
[2016-06-25] MEDS: PETROLATUM, WHITE OINT 50 GM TUBE TOPICAL SCH (09:23)
[2016-06-25 11:36] LABS: Glucose,Whole Blood 195 mg/dL (75-99)
[2016-06-25 11:52] VITALS: RESP 18
--- NOTE | 2016-06-25 15:10 | DS ---
DATE OF ADMISSION: 06/22/2016 DATE OF DISCHARGE: FINAL DIAGNOSIS(ES): 1. Persistent atrial fibrillation with rapid ventricular rate, from underlying coronary artery disease. 2. Coronary artery disease with prior history of stent. 3. Diabetes mellitus type 2, chronically on insulin. 4. Gastroesophageal reflux disease. 5. Essential hypertension. 6. Primary osteoarthritis of multiple joints, bilateral. 7. Bipolar disorder, chronic. 8. Acute urinary tract infection. HOSPITAL COURSE: This patient presented with atrial fibrillation with rapid ventricular rate and reverted the patient sinus rhythm with amiodarone. Small dose of Atenolol was added. Also treated for UTI, comfortable at the time of discharge. On exam, lungs are clear. CARDIOVASCULAR: First and second seconds are normal. Care was discussed with the financial planner and the patient. 2-D echocardiogram showed EF of 50% to 55% percent. DISCHARGE MEDICATIONS: 1. Antiemetics 1 mg p.o. daily. 2. Cogentin 1 mg p.o. b.i.d. 3. Vitamin D3, 4000 q.h.s. 4. Cymbalta 60 mg p.o. daily. 5. Hydrocortisone 1% cream topical b.i.d. 6. Humalog 8 units subcutaneously t.i.d. 7. Lantus 20 units subcu q.h.s. 8. Biofreeze topical b.i.d. 9. Emollient application topical b.i.d. 10. Nystatin topical b.i.d. 11. Zyprexa 7.5 p.o. daily. 12. Omeprazole 20 mg p.o. daily. 13. Aquaphor topical b.i.d. 14. Potassium 10 mEq b.i.d. 15. Lamictal 150 mg p.o. q.12. 16. Cordarone 200 mg p.o. daily. 17. Eliquis 2.5 mg p.o. b.i.d. 18. Tenormin 12.5 p.o. daily. 19. Keflex 250 mg p.o. t.i.d. 15 capsules. 20. Strabane 10, 1 tablet q.4 p.r.n. 21. Humalog per scale a.c. and q.h.s. DISPOSITION: ECF. Follow up with Dr. Jon. LABS: CBC, BMP, 3 days. On examination, LUNGS: Clear. CARDIOVASCULAR: First and second seconds are normal. Answering questions appropriately. Discharge planning more than 35% minutes.
[2016-06-25] MEDS: ACETAMINOPHEN TAB 325 MG TAB PO PRN (15:44)
[2016-06-25 15:52] VITALS: BP 106/59; PULSE 76; TEMP 97.4
[2016-06-25 16:50] LABS: Glucose,Whole Blood 154 mg/dL (75-99)
== END 2016-06-25 17:35 | DRG 309 ==
LOC: EC 15:34 → 6SEL 16:41
PROVIDERS: ADMIT Hospitalist; ATTEND Hospitalist
DX: I48.1 Persistent atrial fibrillation (principal); N39.0 Urinary tract infection, site not specified; F03.90 Unspecified dementia, unspecified severity, without behavioral disturbance, psychotic disturbance, mood disturbance, and anxiety; E11.9 Type 2 diabetes mellitus without complications; I48.0 Paroxysmal atrial fibrillation; E78.5 Hyperlipidemia, unspecified; G47.30 Sleep apnea, unspecified; I10 Essential (primary) hypertension; I25.10 Atherosclerotic heart disease of native coronary artery without angina pectoris; I25.2 Old myocardial infarction; I45.10 Unspecified right bundle-branch block; K21.9 Gastro-esophageal reflux disease without esophagitis; M15.9 Polyosteoarthritis, unspecified; F31.9 Bipolar disorder, unspecified; R07.89 Other chest pain; Z95.5 Presence of coronary angioplasty implant and graft; Z79.4 Long term (current) use of insulin; Z79.899 Other long term (current) drug therapy; Z88.2 Allergy status to sulfonamides; Z88.8 Allergy status to other drugs, medicaments and biological substances; Z85.9 Personal history of malignant neoplasm, unspecified
CPT/HCPCS: 36415; 71010; 80053; 80061; 81001; 82550; 82553; 83036; 83735; 84439; 84443; 84484; 85025; 85610; 85730; 93005; 93306; 96365; 96366; 96376; 99291

== ENCOUNTER → 2017-02-15 | Outpatient (CLI) | payer MEDICARE, BC, OTHER ==
--- NOTE | 2017-02-15 15:23 | CT ---
EXAMINATION TYPE: CT brain wo/w con DATE OF EXAM: 02/15/2017 COMPARISON: 12/18/2010 HISTORY: Metabolic encephalopathy, breast cancer CT DLP: 3175.8 mGycm, Automated exposure control for dose reduction was used. CONTRAST: [address] of the brain is performed utilizing 3 mm thick sections through the posterior fossa and 3 mm thick sections through the remaining calvarium. Study is performed within 24 hours of arrival to the hospital. No abnormal hyperdensity is present to suggest an acute intracranial hemorrhage. No mass lesion is evident. No acute infarcts are evident. Periventricular white matter hypodensity is present, likely on the ba sis of chronic white matter ischemic changes. Ventricles and sulci are prominent for the patient age. Paranasal sinuses and mastoid air cells within the [id number] are clear. Hyperostosis frontalis in ternus is present, normal variant. No suspicious enhancement is evident. IMPRESSIONS: 1. Periventricular chronic appearing white matter ischemic changes with age-related atrophy. 2. No acute intracranial process. 3. No abnormal enhancement CT cervical spine. COMPARISON: None CT of the cervical spine is performed in the axial plane at 2 mm thick sections. Reconstructed image s in the coronal, and sagittal plane are reviewed on the computer. No acute fractures are evident. Vertebral body alignment is normal. Disc heights are preserved. Vertebral body heights are preserved. No spinal canal stenosis is evident. No neural foraminal stenosis is evident. IMPRESSIONS: 1. Normal CT cervical spine.
== END | disposition home or self-care (01) ==
LOC: RADCTMAIN 13:06
PROVIDERS: ATTEND Internal Medicine
DX: G93.41 Metabolic encephalopathy (principal)
CPT/HCPCS: 70470; Q9967

== ENCOUNTER → 2017-04-01 | Outpatient (CLI) | payer MEDICARE, BC, OTHER ==
[2017-04-01 19:03] LABS: Blood Urea Nitrogen 19 mg/dL (7-17); Non-African American GFR(MDRD) >60 (>60 ml/min/1.73 sqM)
--- NOTE | 2017-04-03 12:30 | CT ---
EXAMINATION TYPE: CT ChestAbdPelvis w con DATE OF EXAM: 04/01/2017 INDICATION: Ovarian cancer, breast cancer, uterine cancer COMPARISON: No prior CT of the chest abdomen or pelvis. CT DLP: 2618.50 mGycm CONTRAST: 100 mL Omnipaque 300. Oral contrast. TECHNIQUE: Axial images at 5 mm thick sections. Reconstructed images in the coronal plane. Delayed images through the kidneys. FINDINGS: CT CHEST: Portion of the thyroid visualized is normal. No suspicious lung nodules or focal infiltrates are present. Some minimal atelectatic type changes ap pears to be within the base of the lingula. Shotty lymphadenopathy is in the superior mediastinum. The ascending aorta diameter at the level of the main pulmonary artery is 3.6 cm. The main pulmonary artery diameter at the bifurcation is 3.1 cm. Coronary artery calcification is present. Reflux into the esophagus is evident. CT ABDOMEN: LAP-BAND is present. Liver: Normal Spleen: Normal Pancreas: Atrophic Adrenal glands: The adrenal glands are normal. Gallbladder: Surgically absent Kidneys: No masses are evident. No hydronephrosis is present. 0.9 cm cyst on the posterior mid righ t kidney. A 1.0 cm cyst at the posterior left kidney A 0.4 cm calcification may be at the inferior p ole left kidney which could be nonobstructing. The right renal artery is retrocaval Aorta: Vascular calcification is within the aorta. Inferior vena cava: Normal. CT PELVIS: Abundant fecal debris is throughout the colon. Loops of bowel within the abdomen and pelvis are normal. There are loops of bowel which are incom pletely distended or lack oral contrast limiting their evaluation. Appendix: Not visualized Urinary bladder: Normal. Genitourinary structures: Uterus and ovaries are surgically absent Osseous structures: No suspicious lytic or sclerotic lesions. IMPRESSIONS: 1. No suspicious changes to suggest metastatic disease.
== END | disposition home or self-care (01) ==
LOC: RADCTMAIN 17:49 → EEVIPCON 19:00
PROVIDERS: ATTEND Internal Medicine
DX: C50.919 Malignant neoplasm of unspecified site of unspecified female breast (principal); S22.31XD Fracture of one rib, right side, subsequent encounter for fracture with routine healing; M51.36 Other intervertebral disc degeneration, lumbar region; M62.81 Muscle weakness (generalized); E11.9 Type 2 diabetes mellitus without complications; I10 Essential (primary) hypertension; I25.10 Atherosclerotic heart disease of native coronary artery without angina pectoris; G47.30 Sleep apnea, unspecified; R48.8 Other symbolic dysfunctions; S32.10XD Unspecified fracture of sacrum, subsequent encounter for fracture with routine healing; I48.2 Chronic atrial fibrillation; C55 Malignant neoplasm of uterus, part unspecified; F31.9 Bipolar disorder, unspecified; G62.9 Polyneuropathy, unspecified; M54.5 Low back pain; Z91.81 History of falling; Z88.2 Allergy status to sulfonamides; Z88.8 Allergy status to other drugs, medicaments and biological substances; Z88.1 Allergy status to other antibiotic agents; Z85.43 Personal history of malignant neoplasm of ovary
CPT/HCPCS: 82565; 84520; 71260; 74177; 36415; Q9967

== ENCOUNTER 2017-07-26 12:16 | Emergency (ER) | payer MEDICARE, BC, OTHER ==
[2017-07-26] MEDS ORDERED: SODIUM CHLORIDE 0.9% 500 ML IV STA (12:34)
[2017-07-26 13:10] LABS: Basophils % (A) 1 %; Eosinophils # (A) 0.2 k/uL (0-0.7); Eosinophils % (A) 3 %; HGB 11.8 gm/dL (11.4-16.0); Hypochromasia Slight; Lymphocytes # (A) 1.1 k/uL (1.0-4.8); Lymphocytes % (A) 16 %; MCH 29.9 pg (25.0-35.0); MCHC 30.3 g/dL (31.0-37.0); MCV 98.7 fL (80.0-100.0); Mean Platelet Volume 6.9; Monocytes # (A) 0.4 k/uL (0-1.0); Monocytes % (A) 6 %; Neutrophils # (A) 4.7 k/uL (1.3-7.7); Neutrophils % (A) 73 %; Platelet Count 191 k/uL (150-450); RBC 3.95 m/uL (3.80-5.40); RDW 13.8 % (11.5-15.5); WBC 6.5 k/uL (3.8-10.6)
[2017-07-26 13:21] LABS: Amorphous Sediment,Urine Moderate /hpf; Appearance,Urine Cloudy (Clear); Bacteria,Urine Rare /hpf; Bilirubin,Urine Negative (Negative); Blood,Urine Negative (Negative); Color,Urine Yellow; Glucose,Urine (UA) 2+ (Negative); Hyaline Casts,Urine 2 /lpf (0-2); Ketones,Urine Negative (Negative); Leukocyte Esterase,Urine Large (Negative); Mucus,Urine Rare /hpf; Nitrite,Urine Negative (Negative); PH, Urine 7.5 (5.0-8.0); Protein,Urine Negative (Negative); Specific Gravity,Urine 1.015 (1.001-1.035); Squamous Epithelial Cell,Urine 1 /hpf (0-4); Urobilinogen,Urine <2.0 mg/dL (<2.0); WBC,Urine 32 /hpf (0-5)
[2017-07-26 13:23] LABS: ALT 24 U/L (9-52); AST 21 U/L (14-36); Albumin 3.2 g/dL (3.5-5.0); Alkaline Phosphatase 83 U/L (38-126); Anion Gap 7 mmol/L; Blood Urea Nitrogen 14 mg/dL (7-17); Calcium 8.9 mg/dL (8.4-10.2); Carbon Dioxide 33 mmol/L (22-30); Chloride 104 mmol/L (98-107); Glucose 102 mg/dL (74-99); Potassium 4.3 mmol/L (3.5-5.1); Sodium 144 mmol/L (137-145); Total Bilirubin 0.3 mg/dL (0.2-1.3); Total Protein 5.8 g/dL (6.3-8.2)
[2017-07-26 13:31] LABS: Creatine Kinase 124 U/L (30-135)
--- NOTE | 2017-07-26 13:33 | ED ---
General Adult HPI <Bro You - Last Filed: 07/26/17 14:33> - General Source: patient, EMS, RN notes reviewed Mode of arrival: EMS Limitations: altered mental status <Devin Barakat - Last Filed: 07/26/17 14:39> - General Chief complaint: Fall Stated complaint: Fall Time Seen by Provider: 07/26/17 12:20 - History of Present Illness Initial comments: Patient 66-year-old female who presents emergency room today with a chief complaint of a fall that occurred last night. She states she was on her way from the bathroom back to her bed. She states she was not using her walker when she fell down hitting the left side of her head. She states she did not lose consciousness. She states she has a history of multiple falls. Did not feel dizzy or lightheaded. She does admit to some pain in left side of the head , neck. Also admits to some pain in the left ribs, hip, left knee. Patient denies any other complaints or symptoms at this time. She does admit that these pains in the knee, hip, ribs and neck are worse with certain movements. Patient denies any other complaints. Patient denies any recent fever, chills, shortness of breath, chest pain, back pain, abdominal pain, nausea or vomiting, numbness or tingling, visual changes, or any other complaints. (Devin Barakat) - Related Data Home Medications Medication Instructions Recorded Confirmed Anastrozole [Arimidex] 1 mg PO DAILY 06/22/16 07/26/17 Cholecalciferol [Vitamin D3] 4,000 unit PO HS 06/22/16 07/26/17 DULoxetine HCL [Cymbalta] 60 mg PO DAILY 06/22/16 07/26/17 INSULIN LISPRO (humaLOG) [humaLOG] 10 units SQ DAILY@1100 06/22/16 07/26/17 Insulin Glargine [Lantus] 25 unit SQ DAILY 06/22/16 07/26/17 Menthol [Biofreeze] 1 applic TOPICAL TID 06/22/16 07/26/17 Minerin Lotion(Emollient) 1 applic TOPICAL BID 06/22/16 07/26/17 Omeprazole 20 mg PO DAILY 06/22/16 07/26/17 Potassium Chloride ER [K-Dur 10] 10 meq PO BID 06/22/16 07/26/17 lamoTRIgine [LaMICtal] 150 mg PO BID@0700,1900 06/22/16 07/26/17 Amiodarone [Cordarone] 400 mg PO DAILY 07/26/17 07/26/17 Apixaban [Eliquis] 5 mg PO BID 07/26/17 07/26/17 Benztropine Mesylate 0.5 mg PO BID 07/26/17 07/26/17 Bisacodyl [Dulcolax] 10 mg PO DAILY PRN 07/26/17 07/26/17 Carvedilol [Coreg] 3.125 mg PO BID 07/26/17 07/26/17 Gabapentin [Neurontin] 300 mg PO HS 07/26/17 07/26/17 INSULIN LISPRO (HumaLOG) [HumaLOG] 16 units SQ BID@0700,1600 07/26/17 07/26/17 Isosorbide Mononitrate ER [Imdur] 30 mg PO DAILY 07/26/17 07/26/17 Lisinopril [Prinivil] 5 mg PO DAILY 07/26/17 07/26/17 Magnesium Hydroxide [Milk of 2,400 mg PO HS PRN 07/26/17 07/26/17 Magnesia] Magnesium Oxide [Mag-Ox] 400 mg PO HS 07/26/17 07/26/17 Nitroglycerin Sl Tabs [Nitrostat] 0.4 mg SUBLINGUAL Q5M PRN 07/26/17 07/26/17 OLANZapine [ZyPREXA] 2.5 mg PO HS 07/26/17 07/26/17 Pravastatin Sodium [Pravachol] 20 mg PO HS 07/26/17 07/26/17 Previous Rx's Medication Instructions Recorded Acetaminophen Tab [Tylenol] 650 mg PO Q4HR PRN #0 tab 06/25/16 Allergies Allergy/AdvReac Type Severity Reaction Status Date / Time lorazepam [From Ativan] Allergy Unknown Verified 07/26/17 12:38 nabumetone [From Relafen] Allergy Rash/Hives Verified 07/26/17 12:38 Sulfa (Sulfonamide Allergy Rash/Hives Verified 07/26/17 12:38 Antibiotics) Review of Systems ROS Other: All systems not noted in ROS Statement are negative. <Bro You - Last Filed: 07/26/17 14:33> ROS Other: All systems not noted in ROS Statement are negative. <Devin Barakat - Last Filed: 07/26/17 14:39> ROS Statement: Those systems with pertinent positive or pertinent negative responses have been documented in the HPI. Past Medical History Past Medical History: Atrial Fibrillation, Coronary Artery Disease (CAD), Cancer , Chest Pain / Angina, Diabetes Mellitus, GERD/Reflux, Hypertension, Osteoarthritis (OA), Sleep Apnea/CPAP/BIPAP Additional Past Medical History / Comment(s): PER PAST MEDICAL HX-ARTHRITIS,BP, VARICOSE VEINS, SINUS PROBLEMS, SLEEP APNEA-NO CPAP USED,GERD, BIPOLAR/MANIC DEPRESSION-PAST HOPSITALIZATION FOR SUICIDAL THOUGHTS IN [id number], HX OF FALLS (PAST FX TO SACRUM AND RT RIB), DX 12-04-15 MALIGNANT NEOPLASM UTERUS-PER ECF NO SX BUT HAS BEEN RECEIVING RADIATION TX.UTI'S. PER ECF NO HX THAT THEY ARE AWARE OF MS/CHF History of Any Multi-Drug Resistant Organisms: None Reported Past Surgical History: Adenoidectomy, Section, Cholecystectomy, Heart Catheterization With Stent, Hysterectomy, Tonsillectomy, Tubal Ligation Additional Past Surgical History / Comment(s): PER PAST HX IN 2007 HEART CATH(5 STENTS),KAMRAN CARPAL TUNNEL,PAIN CLINIC INJ(BACK)/RADIO FREQ FACET BLOCK/SACRAL X2. Past Anesthesia/Blood Transfusion Reactions: Unable to Obtain Date of Last Stent Placement:: UNK Past Psychological History: No Psychological Hx Reported Smoking Status: Never smoker Past Alcohol Use History: None Reported Past Drug Use History: None Reported - Past Family History Father Family Medical History: Unable to Obtain Mother Family Medical History: Unable to Obtain <Devin Barakat - Last Filed: 07/26/17 14:39> General Exam <Bro You - Last Filed: 07/26/17 14:33> Limitations: altered mental status <Devin Barakat - Last Filed: 07/26/17 14:39> - General Exam Comments Initial Comments: General: The patient is awake and alert, in no distress, and does not appear acutely ill. Eye: Pupils are equal, round and reactive to light, extra-ocular movements are intact. No nystagmus. There is normal conjunctiva bilaterally. No signs of icterus. Ears, nose, mouth and throat: There are moist mucous membranes and no oral lesions. Neck: The neck is supple, there is no tenderness or JVD. Cardiovascular: There is a regular rate and rhythm. No murmur, rub or gallop is appreciated. Respiratory: Lungs are clear to auscultation, respirations are non-labored, breath sounds are equal. No wheezes, stridor, rales, or rhonchi. Gastrointestinal: Soft, non-distended, non-tender abdomen without masses or organomegaly noted. There is no rebound or guarding present. No CVA tenderness. Musculoskeletal: Normal ROM. Normal appearance of the left hip, left knee, left ankle no swelling, bruising, deformity. Negative logroll maneuver. Mild tenderness over the lateral aspect of left hip and anterior aspect left knee. Patient does have tenderness to palpation over the left lateral lower ribs. No step-off deformity appreciated. Normal appearance of cervical, thoracic and lumbar spine. No step-offs or deformities. Mild tenderness at C2 to C5. No tenderness in thoracic or lumbar. Strength 5/5. Sensation intact. Pulses equal bilaterally 2+. Neurological: A&O x 3. CN II-XII intact, There are no obvious motor or sensory deficits. Coordination appears grossly intact. Speech is normal. Skin: Skin is warm and dry and no rashes or lesions are noted. Psychiatric: Cooperative, appropriate mood & affect, normal judgment. (Devin Barakat) Course <Bro You - Last Filed: 07/26/17 14:33> <Devin Barakat - Last Filed: 07/26/17 14:39> Vital Signs 07/26/17 12:17 Temperature 97.1 F L Pulse Rate 71 Respiratory 20 Rate Blood Pressure 139/71 O2 Sat by Pulse 96 Oximetry - Reevaluation(s) Reevaluation #1: 07/26/17 14:33 PA supervision: I did personally do a [id number] evaluation the patient did discuss the findings with her. Patient tripped coming out of the bathroom today. She did fall she ended up with 2 broken ribs. Patient is awake alert oriented 3 no distress lung sounds are clear very mild tennis palpation of the ribs site. Heart regular no focal deficits noted. I do agree with the assessment and plan. Per x-ray report some evidence of increased pulmonary vascular congestion however her lung sounds are totally clear pulse ox is excellent. (Bro You) Medical Decision Making - Lab Data Result diagrams: 07/26/17 12:53 07/26/17 12:53 <Bro You - Last Filed: 07/26/17 14:33> - Lab Data Result diagrams: 07/26/17 12:53 07/26/17 12:53 <Devin Barakat - Last Filed: 07/26/17 14:39> - Medical Decision Making Patient's x-ray of the chest and ribs reviewed shows impression: 1. Correlate for CHF exacerbation as described by the police with a new mild to moderate central vascular congestion felt present. 2. There is an acute displaced fractures of the anterior lateral left eighth and ninth ribs. There is a new associated left basilar atelectasis. Patient's lung sounds clear urine emergency room. X-rays of the left knee are negative for any acute fracture dislocation along with the x-ray of the left hip. Patient's CT of the head and neck are negative as well. Patient's labs been reviewed. Urinalysis does have urine culture pending. Case was discussed and seen by attending physician Dr. You. At this time is felt the patient is stable to be discharged. Advised to follow-up family doctor return to emergency room symptoms increase worsen or for any other concerns. (Devin Barakat) - Lab Data Lab Results 07/26/17 07/26/17 07/26/17 Range/Units 12:53 12:53 12:53 WBC 6.5 (3.8-10.6) k/uL RBC 3.95 (3.80-5.40) m/uL Hgb 11.8 (11.4-16.0) gm/dL Hct 39.0 (34.0-46.0) % MCV 98.7 (80.0-100.0) fL MCH 29.9 (25.0-35.0) pg MCHC 30.3 L (31.0-37.0) g/dL RDW 13.8 (11.5-15.5) % Plt Count 191 (150-450) k/uL Neutrophils % 73 % Lymphocytes % 16 % Monocytes % 6 % Eosinophils % 3 % Basophils % 1 % Neutrophils # 4.7 (1.3-7.7) k/uL Lymphocytes # 1.1 (1.0-4.8) k/uL Monocytes # 0.4 (0-1.0) k/uL Eosinophils # 0.2 (0-0.7) k/uL Basophils # 0.0 (0-0.2) k/uL Hypochromasia Slight Sodium 144 (137-145) mmol/L Potassium 4.3 (3.5-5.1) mmol/L Chloride 104 (98-107) mmol/L Carbon Dioxide 33 H (22-30) mmol/L Anion Gap 7 mmol/L BUN 14 (7-17) mg/dL Creatinine 1.00 (0.52-1.04) mg/dL Est GFR (MDRD) Af Amer >60 (>60 ml/min/1.73 sqM) Est GFR (MDRD) Non-Af 55 (>60 ml/min/1.73 sqM) Glucose 102 H (74-99) mg/dL Calcium 8.9 (8.4-10.2) mg/dL Total Bilirubin 0.3 (0.2-1.3) mg/dL AST 21 (14-36) U/L ALT 24 (9-52) U/L Alkaline Phosphatase 83 (38-126) U/L Total Creatine Kinase 124 (30-135) U/L CK-MB (CK-2) 1.6 (0.0-2.4) ng/mL CK-MB (CK-2) Rel Index 1.3 Troponin I <0.012 (0.000-0.034) ng/mL Total Protein 5.8 L (6.3-8.2) g/dL Albumin 3.2 L (3.5-5.0) g/dL Urine Color Urine Appearance (Clear) Urine pH (5.0-8.0) Ur Specific Berkey (1.001-1.035) Urine Protein (Negative) Urine Glucose (UA) (Negative) Urine Ketones (Negative) Urine Blood (Negative) Urine Nitrite (Negative) Urine Bilirubin (Negative) Urine Urobilinogen (<2.0) mg/dL Ur Leukocyte Esterase (Negative) Urine WBC (0-5) /hpf Ur Squamous Epith Cells (0-4) /hpf Amorphous Sediment (None) /hpf Urine Bacteria (None) /hpf Hyaline Casts (0-2) /lpf Urine Mucus (None) /hpf 07/26/17 Range/Units 12:53 WBC (3.8-10.6) k/uL RBC (3.80-5.40) m/uL Hgb (11.4-16.0) gm/dL Hct (34.0-46.0) % MCV (80.0-100.0) fL MCH (25.0-35.0) pg MCHC (31.0-37.0) g/dL RDW (11.5-15.5) % Plt Count (150-450) k/uL Neutrophils % % Lymphocytes % % Monocytes % % Eosinophils % % Basophils % % Neutrophils # (1.3-7.7) k/uL Lymphocytes # (1.0-4.8) k/uL Monocytes # (0-1.0) k/uL Eosinophils # (0-0.7) k/uL Basophils # (0-0.2) k/uL Hypochromasia Sodium (137-145) mmol/L Potassium (3.5-5.1) mmol/L Chloride (98-107) mmol/L Carbon Dioxide (22-30) mmol/L Anion Gap mmol/L BUN (7-17) mg/dL Creatinine (0.52-1.04) mg/dL Est GFR (MDRD) Af Amer (>60 ml/min/1.73 sqM) Est GFR (MDRD) Non-Af (>60 ml/min/1.73 sqM) Glucose (74-99) mg/dL Calcium (8.4-10.2) mg/dL Total Bilirubin (0.2-1.3) mg/dL AST (14-36) U/L ALT (9-52) U/L Alkaline Phosphatase (38-126) U/L Total Creatine Kinase (30-135) U/L CK-MB (CK-2) (0.0-2.4) ng/mL CK-MB (CK-2) Rel Index Troponin I (0.000-0.034) ng/mL Total Protein (6.3-8.2) g/dL Albumin (3.5-5.0) g/dL Urine Color Yellow Urine Appearance Cloudy H (Clear) Urine pH 7.5 (5.0-8.0) Ur Specific Berkey 1.015 (1.001-1.035) Urine Protein Negative (Negative) Urine Glucose (UA) 2+ H (Negative) Urine Ketones Negative (Negative) Urine Blood Negative (Negative) Urine Nitrite Negative (Negative) Urine Bilirubin Negative (Negative) Urine Urobilinogen <2.0 (<2.0) mg/dL Ur Leukocyte Esterase Large H (Negative) Urine WBC 32 H (0-5) /hpf Ur Squamous Epith Cells 1 (0-4) /hpf Amorphous Sediment Moderate H (None) /hpf Urine Bacteria Rare H (None) /hpf Hyaline Casts 2 (0-2) /lpf Urine Mucus Rare H (None) /hpf Disposition <Bro You - Last Filed: 07/26/17 14:33> Time of Disposition: 14:37 <Devin Barakat - Last Filed: 07/26/17 14:39> Clinical Impression: Fall, Left rib fracture Disposition: HOME SELF-CARE Condition: Good Instructions: Rib Fracture (ED) Additional Instructions: X-rays shows that you have fractures of the eighth and ninth rib on the left anterior lateral side. Please continue pain medication. Please brace this area if you need to cough or sneeze over certain movements. Please follow-up the family doctor over the next 2-5 days. Please return to emergency room if symptoms increase or worsen or for any other concerns. Referrals: Kael Jon MD [Primary Care Provider] - 1-2 days
--- NOTE | 2017-07-26 13:42 | XR ---
EXAMINATION TYPE: XR Hip LT and AP Pelvis DATE OF EXAM: 07/26/2017 COMPARISON: CT chest abdomen and pelvis April 01, 2017 HISTORY: Pelvic and left hip pain TECHNIQUE: A single AP view of the pelvis is obtained. Two views of the left hip are obtained. FINDINGS: [place] osseous structures are demineralized. There is no acute fracture/dislocation eviden t in the pelvis. The sacroiliac joints appear symmetric and unremarkable. There is mild joint space loss left hip. There is mild acetabular spurring bilaterally. The overlying soft tissue appears unrem arkable. Two views of left hip show no acute fracture or dislocation. No focal lytic or sclerotic lesion seen in the proximal left femur. The overlying soft tissue is unremarkable. Numerous nondistended ingested pills are noted in the right upper pelvis likely within cecum. IMPRESSION: There is no acute fracture or dislocation in the pelvis or left hip. Multiple nondigeste d pills noted in visualized cecum.
[2017-07-26 13:44] LABS: Creatine Kinase MB 1.6 ng/mL (0.0-2.4); Troponin I <0.012 ng/mL (0.000-0.034)
--- NOTE | 2017-07-26 13:46 | XR ---
EXAMINATION TYPE: XR knee limited LT DATE OF EXAM: 07/26/2017 CLINICAL HISTORY: Left knee pain. TECHNIQUE: Three views of the left knee are obtained. COMPARISON: None. FINDINGS: There is no acute fracture/dislocation evident in left knee. There is mild to moderate tri compartment joint space loss. Mild to minimal spurring patellofemoral compartment is seen. Posterior vascular calcification is noted. IMPRESSION: There is no acute fracture or dislocation in the left knee.
--- NOTE | 2017-07-26 13:53 | XR ---
EXAMINATION TYPE: XR ribs LT w pa chest xray DATE OF EXAM: 07/26/2017 CLINICAL HISTORY: Chest and left-sided rib pain after fall injury. TECHNIQUE: Single frontal view of the chest is obtained. A frontal and oblique images of the left-ramon ed ribs are acquired. COMPARISON: Chest x-ray June 22, 2016. CT chest abdomen and pelvis April 01, 2017 FINDINGS: The osseous structures remain demineralized. There is cardiomegaly with new mild to moderat e central vascular congestion. There is interval removal of left-sided subclavian Mediport catheter. Previously visualized lap band device also was not well seen on current chest x-ray study. Prominent gas-filled structure right upper quadrant likely reflects colonic interposition when correlating with CT. No suspicious air is seen below the central or left diaphragm. There is new patchy left basilar opacity consistent with atelectasis and/or infiltrate in probable small left pleural effusion. Dedicated images left-sided ribs show better visualization of lap band device just below diaphragm an d cholecystectomy clips. There is also better visualization of coronary stent. There are acute minima lly displaced fractures through the anterolateral eighth and ninth ribs visualized. IMPRESSION: 1. Correlate for CHF exacerbation as there is cardiomegaly with new mild to moderate central vascular congestion felt present. 2. There are acute displaced fractures of the anterolateral left eighth and ninth ribs. There is new associated left basilar atelectasis and/or infiltrate and suspected small left pleural effusion.
--- NOTE | 2017-07-26 14:05 | CT ---
EXAMINATION TYPE: CT brain ana maria wo con DATE OF EXAM: 07/26/2017 COMPARISON: 02/15/2017 HISTORY: Patient poor historian and poor at following directions. Head and neck pain post fall. CT DLP: 1299.[address] of the brain was performed. The ventricles, basal cisterns and sulci overlying the cerebral convexities demonstrate mild enlargem ent. There is no evidence for intracranial hemorrhage or sulcal effacement. There is decreased attenuatio n about the periventricular white matter and deep white matter of both cerebral hemispheres, compatib le with chronic small vessel ischemia. No mass effects are seen. If symptoms persist consider MRI. Osseous calvarium is intact. Left frontal scalp hematoma noted. Hyperostosis frontalis interna. IMPRESSION: 1. Age related atrophic and chronic small vessel ischemic change without acute intracranial process seen at this time. CT Cervical Spine: Unenhanced CT of the cervical spine was performed with bone and soft tissue window settings submitted . Coronal and sagittal reconstruction is obtained. There is normal alignment and prevertebral soft tissues. No evidence for acute cervical fracture . Scattered degenerative disc disease and spondylosis. Biapical scarring. IMPRESSION: 1. No evidence for acute fracture or subluxation of the cervical spine.
[2017-07-26 14:55] VITALS: BP 116/61; PULSE 74; RESP 17; TEMP 97.4
== END 2017-07-26 15:19 | disposition home or self-care (01) ==
LOC: EC 12:16
DX: S22.42XA Multiple fractures of ribs, left side, initial encounter for closed fracture (principal); I45.10 Unspecified right bundle-branch block; J98.11 Atelectasis; M54.2 Cervicalgia; M25.552 Pain in left hip; M25.562 Pain in left knee; E11.9 Type 2 diabetes mellitus without complications; K21.9 Gastro-esophageal reflux disease without esophagitis; I10 Essential (primary) hypertension; G47.30 Sleep apnea, unspecified; I25.10 Atherosclerotic heart disease of native coronary artery without angina pectoris; Z99.89 Dependence on other enabling machines and devices; Z85.42 Personal history of malignant neoplasm of other parts of uterus; Z88.2 Allergy status to sulfonamides; Z88.8 Allergy status to other drugs, medicaments and biological substances; Z79.4 Long term (current) use of insulin; Z79.01 Long term (current) use of anticoagulants; Z79.899 Other long term (current) drug therapy; W01.198A Fall on same level from slipping, tripping and stumbling with subsequent striking against other object, initial encounter; Y92.091 Bathroom in other non-institutional residence as the place of occurrence of the external cause
CPT/HCPCS: 36415; 70450; 72125; 73502; 80053; 81001; 82550; 82553; 84484; 85025; 87086; 93005; 96360; 96361; 99284

== ENCOUNTER → 2018-02-14 | Outpatient (CLI) | payer MEDICARE, BC, OTHER ==
[2018-02-14 14:21] LABS: HCT 41.5 % (34.0-46.0); MCH 29.5 pg (25.0-35.0); MCHC 31.3 g/dL (31.0-37.0); Mean Platelet Volume 7.3; Platelet Count 183 k/uL (150-450); RBC 4.41 m/uL (3.80-5.40); RDW 13.8 % (11.5-15.5); WBC 6.2 k/uL (3.8-10.6)
[2018-02-14 14:35] LABS: Albumin 3.6 g/dL (3.5-5.0); Calcium 8.8 mg/dL (8.4-10.2); Total Bilirubin 0.5 mg/dL (0.2-1.3); Total Protein 6.5 g/dL (6.3-8.2)
--- NOTE | 2018-02-14 16:35 | BD ---
EXAMINATION TYPE: Axial Bone Density DATE OF EXAM: 02/14/2018 COMPARISON: NONE CLINICAL HISTORY: Height: 68 Weight: 218 FRAX RISK QUESTIONS: Alcohol (3 or more units per day): no Family History (Parent hip fracture): no Glucocorticoids (More than 3mos): no (Ex: prednisone, prednisolone, methylprednisolone, dexamethasone, and hydrocortisone). History of Fracture in Adulthood: no Secondary Osteoporosis: 1. Type 1 Diabetes: no 2. Hyperthyroidism: no 3. Menopause before 45: no 4. Malnutrition: no 5. Chronic liver disease: no Rheumatoid Arthritis: no Current Tobacco Use: no RISK FACTORS HISTORY OF: Family History of Osteoporosis: no Active: no Diet low in dairy products/other sources of calcium: no Postmenopausal woman: age 48 Frequent falls: yes Poor Health: yes MEDICATIONS: diabetic medication Additional History: EXAM MEASUREMENTS: Bone mineral densitometry was performed using the [employer] System. Bone mineral density as measured about the Lumbar spine is: ----- L1-L4(G/cm2): 1.224 T Score Values are as follows: ----- L2: -0.7 ----- L3: 1.3 ----- L4: 0.6 ----- L1-L4: 0.4 Bone mineral density : baseline Bone mineral density about the R hip (g/cm2): 0.865 Bone mineral density about the L hip (g/cm2): 0.827 T Score values are as follows: -----R Neck: -1.2 -----L Neck: -1.7 -----R Total: -0.2 -----L Total: -1.0 Bone mineral density : baseline IMPRESSION: Osteopenia (T Score between -2.5 and -1). There is slightly increased risk of fracture and the patient may be considered for treatment. Re-Screen 2-5 years. NOTE: T-SCORE=SD OF THE YOUNG ADULT MEAN.
--- NOTE | 2018-02-14 16:50 | CT ---
EXAMINATION TYPE: CT ChestAbdPelvis w con DATE OF EXAM: 02/14/2018 COMPARISON: 04/01/2017 HISTORY: Follow up for breast CA. CT DLP: 1961 mGycm Automated exposure control for dose reduction was used. CONTRAST: CT scan of the chest, abdomen and pelvis is performed with Oral Contrast and with IV Contrast, patien t injected with 100 mL of Isovue 300. FINDINGS: CT CHEST: Portion of the thyroid visualized is normal. Some minimal atelectatic type changes appears to be with in the base of the lingula. Basilar bronchiectasis and linear changes involving the lung bases are franco ggestive of atelectasis or scar. Shotty lymphadenopathy is in the superior mediastinum. The ascending aorta diameter at the level of the main pulmonary artery is 3.6 cm. The main pulmonary artery diameter at the bifurcation is 3.1 cm. Coronary artery calcification is present. Reflux into the esophagus is evident. There is a pleural-based density measuring 2.6 x 1 cm. There is suggestion of a rib fracture in the r egion. Could not exclude a soft tissue component and destructive pathologic fracture. No pneumothorax . Tiny left pleural effusion. LIVER/GB: There is a hepatic dome lesion measuring 2 x 1.5 cm. Previous cholecystectomy noted. PANCREAS: No significant abnormality is seen. SPLEEN: There is a new lesion involving the spleen measuring 4 x 4.6 cm. No perisplenic fluid collect ion. There is some ill-defined attenuation in the perisplenic region anteriorly. Appears to be more s oft tissue attenuation. Spleen measures 11 cm in greatest axis. ADRENALS: No significant abnormality is seen. KIDNEYS: Subcentimeter hypodensities seen within each kidney too small to characterize. Larger 1 cm s imple appearing cyst anterior mid cortex left kidney. Smaller lesions most likely in the basis of tin y cysts. Larger simple appearing left renal cyst appears new from the prior exam. Measures 3 Hounsfie ld units.. BOWEL: No significant abnormality is seen. LYMPH NODES: Within the gastrohepatic ligament there are a couple soft tissue nodules the largest yina sures a short axis of 1 cm. Findings suspicious for adenopathy.. OSSEOUS STRUCTURES: Hypertrophic and degenerative changes of the spine. Previous rib deformity on the left suggest remote trauma. There is evidence of lap band surgery.. OTHER: There is a cystic mass in the right pelvis measuring 5.8 cm likely related to the ovary. Surgi charles clips in the lower pelvis and sclerotic lesion involving the right femoral head likely related to bone island. Smaller sclerotic lesion left femoral neck also likely incidental finding. Subcentimete r bilateral thyroid nodules noted. IMPRESSION: 1. There appears to be a pathologic fracture of a left lateral rib with a 2.6 x 1.0 m soft tissue com ponent or mass. 2. There is a new splenic lesion measuring 4 x 4.6 cm which was not seen on the previous exam. Measur es 39 Hounsfield units. Splenic mass is suspected. Additionally there appears to be ill-defined linea r soft tissue attenuation in the omentum anterior to the spleen as well as soft tissue nodules in the gastrohepatic ligament suspicious for metastases. Ill-defined attenuation adjacent spleen could repr esent omental metastases although a tiny amount of hemorrhage could not BE excluded. Case discussed w ith referring physician's office. 3. 10/30/1969 cystic mass in the right adnexa likely related to ovarian cyst. Recommend pelvic ultraso und.
== END | disposition home or self-care (01) ==
LOC: RADBDWWP 13:14
PROVIDERS: ATTEND Internal Medicine Hematology & Oncology
DX: C50.412 Malignant neoplasm of upper-outer quadrant of left female breast (principal); M85.80 Other specified disorders of bone density and structure, unspecified site; D73.89 Other diseases of spleen; C56.2 Malignant neoplasm of left ovary; C57.01 Malignant neoplasm of right fallopian tube; T50.905A Adverse effect of unspecified drugs, medicaments and biological substances, initial encounter; R11.2 Nausea with vomiting, unspecified; Z88.2 Allergy status to sulfonamides; Z88.8 Allergy status to other drugs, medicaments and biological substances; Z88.6 Allergy status to analgesic agent
CPT/HCPCS: 80053; 86304; 85027; 77080; 71260; 74177; 36415; Q9967

== ENCOUNTER 2018-02-18 20:50 | Emergency (ER) | payer MEDICARE, BC, OTHER ==
[2018-02-18 21:07] VITALS: PULSE 78; RESP 20
--- NOTE | 2018-02-18 21:31 | ED ---
Fall HPI - General Chief Complaint: Fall Stated Complaint: Fall Time Seen by Provider: 02/18/18 20:52 Source: patient, EMS Mode of arrival: EMS - History of Present Illness Initial Comments: Patient is a 67-year-old female that had a mechanical fall and presenting for injuries from the fall. She states that she lives at a shelter and EMS also states that her baseline mental status is alert and oriented 1. She states that she was walking when she tripped on something falling forward hitting her face on the ground. She denies any loss of consciousness and states that she has minor aches and pains throughout her body. She denies any nausea/vomiting. - Related Data Home Medications Medication Instructions Recorded Confirmed Anastrozole [Arimidex] 1 mg PO DAILY 06/22/16 07/26/17 Cholecalciferol [Vitamin D3] 4,000 unit PO HS 06/22/16 07/26/17 DULoxetine HCL [Cymbalta] 60 mg PO DAILY 06/22/16 07/26/17 INSULIN LISPRO (humaLOG) [humaLOG] 10 units SQ DAILY@1100 06/22/16 07/26/17 Insulin Glargine [Lantus] 25 unit SQ DAILY 06/22/16 07/26/17 Menthol [Biofreeze] 1 applic TOPICAL TID 06/22/16 07/26/17 Minerin Lotion(Emollient) 1 applic TOPICAL BID 06/22/16 07/26/17 Omeprazole 20 mg PO DAILY 06/22/16 07/26/17 Potassium Chloride ER [K-Dur 10] 10 meq PO BID 06/22/16 07/26/17 lamoTRIgine [LaMICtal] 150 mg PO BID@0700,1900 06/22/16 07/26/17 Amiodarone [Cordarone] 400 mg PO DAILY 07/26/17 07/26/17 Apixaban [Eliquis] 5 mg PO BID 07/26/17 07/26/17 Benztropine Mesylate 0.5 mg PO BID 07/26/17 07/26/17 Bisacodyl [Dulcolax] 10 mg PO DAILY PRN 07/26/17 07/26/17 Carvedilol [Coreg] 3.125 mg PO BID 07/26/17 07/26/17 Gabapentin [Neurontin] 300 mg PO HS 07/26/17 07/26/17 INSULIN LISPRO (HumaLOG) [HumaLOG] 16 units SQ BID@0700,1600 07/26/17 07/26/17 Isosorbide Mononitrate ER [Imdur] 30 mg PO DAILY 07/26/17 07/26/17 Lisinopril [Prinivil] 5 mg PO DAILY 07/26/17 07/26/17 Magnesium Hydroxide [Milk of 2,400 mg PO HS PRN 07/26/17 07/26/17 Magnesia] Magnesium Oxide [Mag-Ox] 400 mg PO HS 07/26/17 07/26/17 Nitroglycerin Sl Tabs [Nitrostat] 0.4 mg SUBLINGUAL Q5M PRN 07/26/17 07/26/17 OLANZapine [ZyPREXA] 2.5 mg PO HS 07/26/17 07/26/17 Pravastatin Sodium [Pravachol] 20 mg PO HS 07/26/17 07/26/17 Previous Rx's Medication Instructions Recorded Acetaminophen Tab [Tylenol] 650 mg PO Q4HR PRN #0 tab 06/25/16 Allergies Allergy/AdvReac Type Severity Reaction Status Date / Time lorazepam [From Ativan] Allergy Unknown Verified 02/18/18 21:07 nabumetone [From Relafen] Allergy Rash/Hives Verified 02/18/18 21:07 Sulfa (Sulfonamide Allergy Rash/Hives Verified 02/18/18 21:07 Antibiotics) Review of Systems ROS Statement: Those systems with pertinent positive or pertinent negative responses have been documented in the HPI. Constitutional: Negative for chills, fatigue and fever. HENT: Negative for congestion. Respiratory: Negative for chest tightness, shortness of breath and wheezing. Negative for cough Cardiovascular: Negative for chest pain and palpitations. Gastrointestinal: Negative for abdominal pain. Negative for abdominal distention , diarrhea, nausea and vomiting. Genitourinary: Negative for dysuria. Musculoskeletal: Negative for back pain, neck pain and neck stiffness. Positive for myalgias Skin: Positive for color change. Neurological: Negative for dizziness, speech difficulty, weakness and light- headedness. Psychiatric/Behavioral: Negative for agitation and confusion. Negative for anxiety ROS Other: All systems not noted in ROS Statement are negative. Past Medical History Past Medical History: Atrial Fibrillation, Coronary Artery Disease (CAD), Cancer , Chest Pain / Angina, Diabetes Mellitus, GERD/Reflux, Hypertension, Osteoarthritis (OA), Sleep Apnea/CPAP/BIPAP Additional Past Medical History / Comment(s): PER PAST MEDICAL HX-ARTHRITIS,BP, VARICOSE VEINS, SINUS PROBLEMS, SLEEP APNEA-NO CPAP USED,GERD, BIPOLAR/MANIC DEPRESSION-PAST HOPSITALIZATION FOR SUICIDAL THOUGHTS IN [id number], HX OF FALLS (PAST FX TO SACRUM AND RT RIB), DX 12-04-15 MALIGNANT NEOPLASM UTERUS-PER ECF NO SX BUT HAS BEEN RECEIVING RADIATION TX.UTI'S. PER ECF NO HX THAT THEY ARE AWARE OF WI/CHF History of Any Multi-Drug Resistant Organisms: None Reported Past Surgical History: Adenoidectomy, Section, Cholecystectomy, Heart Catheterization With Stent, Hysterectomy, Tonsillectomy, Tubal Ligation Additional Past Surgical History / Comment(s): PER PAST HX IN 2007 HEART CATH(5 STENTS),KAMRAN CARPAL TUNNEL,PAIN CLINIC INJ(BACK)/RADIO FREQ FACET BLOCK/SACRAL X2. Past Anesthesia/Blood Transfusion Reactions: Unable to Obtain Date of Last Stent Placement:: UNK Past Psychological History: No Psychological Hx Reported Smoking Status: Never smoker Past Alcohol Use History: None Reported Past Drug Use History: None Reported - Past Family History Father Family Medical History: Unable to Obtain Mother Family Medical History: Unable to Obtain General Exam - General Exam Comments Initial Comments: Constitutional: Pt is oriented to person, place, and time. Pt appears well- developed and well-nourished. No distress. HENT: Head: Normocephalic and atraumatic. Eyes: EOM are normal. Pupils 3 mm reactive bilaterally Neck: Normal range of motion. Neck supple. Cardiovascular: Normal rate, regular rhythm, S1 normal, S2 normal and normal heart sounds. Exam reveals no gallop and no friction rub. No murmur heard. Pulmonary/Chest: Effort normal and breath sounds normal. No tachypnea and no bradypnea. No respiratory distress. No wheezes or rales noted. Abdominal: Soft. Bowel sounds are normal. Pt exhibits no shifting dullness, no distension, no pulsatile liver, no fluid wave, no abdominal bruit and no ascites. There is no tenderness. There is no rigidity, no rebound, no guarding, no tenderness at McBurney's point and negative Garcia's sign. Musculoskeletal: Normal range of motion. Normal C-spine, T-spine, L-spine examination with no tenderness palpation Neurological: Pt is alert and oriented to person, place. No cranial nerve deficit. Extraocular movements intact Skin: Skin is warm and dry. No rash noted. Pt is not diaphoretic No pallor., Right-sided periorbital edema with ecchymosis Psychiatric: Pt has a normal mood and affect. Pt behavior is normal. Thought content normal. Limitations: altered mental status Course Vital Signs 02/18/18 20:59 Temperature 99.1 F Pulse Rate 78 Respiratory 20 Rate Blood Pressure 143/63 O2 Sat by Pulse 97 Oximetry - Reevaluation(s) Reevaluation #1: 02/18/18 22:40 CT of the head and neck were negative. C-collar was cleared as well and patient shows no evidence of altered mental status. Patient will be observed here in the emergency department for a few hours and then cleared if no changes in mental status. Reevaluation #2: 02/19/18 00:03 Patient continues to do well with no evidence of mental status changes. Patient will be cleared for discharge Medical Decision Making - Medical Decision Making Patient was monitored in the emergency department for possibly 4 hours and showed no evidence of mental status changes. CT of the head, neck, face were all negative for acute pathology and therefore is felt the patient could be safely discharged home.Explained all labs and diagnostic test results and that we will discharge the patient home and patient is to follow up with PCP in 1-2 days and return to the ED if symptoms worsen. Pt is agreeable to plan. Disposition Clinical Impression: Head trauma Disposition: HOME SELF-CARE Condition: Good Instructions: Fall Prevention for Older Adults (ED) Is patient prescribed a controlled substance at d/c from ED?: No Referrals: Kael Jon MD [Primary Care Provider] - 1-2 days Time of Disposition: 00:05
--- NOTE | 2018-02-18 21:55 | CT ---
EXAMINATION TYPE: CT brain urieline wo con DATE OF EXAM: 02/18/2018 COMPARISON: 07/26/2017 HISTORY: Fall injury CT DLP: 1496.8 mGycm, Automated exposure control for dose reduction was used. CONTRAST: Patient injected with 0 mL of Isovue 300. CT of the brain is performed utilizing 3 mm thick sections through the posterior fossa and 3 mm thick sections through the remaining calvarium. Study is performed within 24 hours of arrival to the hospital. No abnormal hyperdensity is present to suggest an acute intracranial hemorrhage. No mass lesion is evident. No acute infarcts are evident. Periventricular white matter hypodensity is present, likely on the ba sis of chronic white matter ischemic changes. Findings appear stable. Ventricles and sulci are prominent for the patient age. Soft tissue swelling is over the right supraorbital and periorbital region. No underlying fracture is evident. Some hyperostosis frontalis internus is present, normal variant. Paranasal sinuses and mastoid air cells within the [id number] are clear. IMPRESSIONS: 1. Atrophy with periventricular white matter ischemic changes, stable from comparison. 2. Soft tissue swelling right supraorbital and periorbital regions CT cervical spine. COMPARISON: 07/26/2017 CT of the cervical spine is performed in the axial plane at 2 mm thick sections. Reconstructed image s in the coronal, and sagittal plane are reviewed on the computer. There is some limitation due to mo tion artifact. No acute fractures are evident. Vertebral body alignment is normal. Disc heights are preserved. Vertebral body heights are preserved. No spinal canal stenosis is evident. No neural foraminal stenosis is evident. Some facet degenerative changes noted. IMPRESSIONS: 1. Exam is limited due to motion artifact. 2. No acute fracture.
--- NOTE | 2018-02-18 21:57 | CT ---
EXAMINATION TYPE: CT facial bones wo con DATE OF EXAM: 02/18/2018 COMPARISON: None HISTORY: Fall injury CT DLP: 636.4 mGycm CONTRAST: 0 mL of Isovue 300 The facial bones are examined in the axial plane at 2 mm thick sections. Reconstructed images in the coronal plane were obtained. Motion artifact is present. There is dental amalgam scatter artifact. Small culture bullosa are present. Hyperostosis frontalis i nternus is present, normal variant. The maxillary sinuses are clear. The ethmoid air cells are clear. The sphenoid sinuses are clear. The frontal sinuses are clear. Frontal sinuses are hypoplastic. The septum is evaluated. There is septal deviation to the left. The ostiomeatal units are patent. Globes are symmetrical. Soft tissue swelling is over the right periorbital region. Orbital floors and medial orbital fuller are normal. IMPRESSIONS: 1. No acute fractures evident. 2. Soft tissue swelling right periorbital region.
--- NOTE | 2018-02-18 23:03 | XR ---
EXAMINATION TYPE: XR pelvis AP view DATE OF EXAM: 02/18/2018 COMPARISON: NONE HISTORY: Pain TECHNIQUE: 2 views FINDINGS: Pelvic ring is intact. Proximal femurs and hip joints appear intact. There is no evidence o f hip fracture. Sacroiliac joints appear intact. There is contrast in the large bowel that obscures t he sacrum. IMPRESSION: No acute abnormality of the pelvis. Mild atherosclerotic vascular disease.
--- NOTE | 2018-02-18 23:04 | XR ---
EXAMINATION TYPE: XR chest 2V DATE OF EXAM: 02/18/2018 COMPARISON: NONE HISTORY: Fall. Pain. TECHNIQUE: Frontal and lateral views of the chest are obtained. FINDINGS: There is no heart failure nor confluent pneumonic infiltrate. Costophrenic angles are hector r. Thoracic aorta shows mild atheromatous change. Bony thorax appears intact. I see no pleural effusi on or pneumothorax. IMPRESSION: No active cardiopulmonary disease.
[2018-02-19 02:02] VITALS: BP 146/87; TEMP 98.8
== END 2018-02-19 01:17 | disposition home or self-care (01) ==
LOC: EC 20:50
DX: S05.11XA Contusion of eyeball and orbital tissues, right eye, initial encounter (principal); R41.82 Altered mental status, unspecified; I48.91 Unspecified atrial fibrillation; I10 Essential (primary) hypertension; I25.10 Atherosclerotic heart disease of native coronary artery without angina pectoris; E11.9 Type 2 diabetes mellitus without complications; K21.9 Gastro-esophageal reflux disease without esophagitis; F31.9 Bipolar disorder, unspecified; Z88.2 Allergy status to sulfonamides; Z88.6 Allergy status to analgesic agent; Z88.8 Allergy status to other drugs, medicaments and biological substances; Z79.01 Long term (current) use of anticoagulants; Z79.4 Long term (current) use of insulin; Z79.899 Other long term (current) drug therapy; Z86.79 Personal history of other diseases of the circulatory system; Z85.42 Personal history of malignant neoplasm of other parts of uterus; Z92.3 Personal history of irradiation; W01.0XXA Fall on same level from slipping, tripping and stumbling without subsequent striking against object, initial encounter; Y93.89 Activity, other specified; Y92.129 Unspecified place in nursing home as the place of occurrence of the external cause
CPT/HCPCS: 70450; 70486; 71046; 72125; 72170; 99284

== ENCOUNTER 2018-03-10 20:49 | Emergency (ER) | payer MEDICARE, BC, OTHER ==
[2018-03-10 20:57] VITALS: RESP 16; TEMP 97.3
--- NOTE | 2018-03-10 21:10 | ED ---
Fall HPI - General Chief Complaint: Fall Stated Complaint: Fall Time Seen by Provider: 03/10/18 21:09 Source: patient, EMS Mode of arrival: EMS - History of Present Illness Initial Comments: Laurie Moraes is a 67-year-old female who presents the emergency department today via EMS for evaluation of left knee bruising after fall. Patient lives at a long-term facility, she has frequent falls. She reports that today she was sitting on the edge of her bed, she states she attempted to stand to move to her wheelchair, her feet caught on the mat beside her bed and she reports her feet went one way and her body went the other. Patient reports landing on her left knee. She noted some bruising to her left knee. Of note the patient has had more silly, she has bruises on her face and nose and multiple stages of healing. Patient denies any headache, vision changes, neck pain, new weakness in the arms or legs. Orts that since the fall today she has been able to stand with assistance and transfer from bed to chair and chair to gurney. However based on the bruising on her knee and the frequency of falls her long-term facility secondary to the ER for further evaluation. - Related Data Home Medications Medication Instructions Recorded Confirmed Anastrozole [Arimidex] 1 mg PO DAILY 06/22/16 03/10/18 Cholecalciferol [Vitamin D3] 4,000 unit PO HS 06/22/16 03/10/18 DULoxetine HCL [Cymbalta] 60 mg PO DAILY 06/22/16 03/10/18 Insulin Glargine [Lantus] 25 unit SQ DAILY 06/22/16 03/10/18 Menthol [Biofreeze] 1 applic TOPICAL TID 06/22/16 03/10/18 Minerin Lotion(Emollient) 1 applic TOPICAL BID 06/22/16 03/10/18 Potassium Chloride ER [K-Dur 10] 10 meq PO BID 06/22/16 03/10/18 lamoTRIgine [LaMICtal] 150 mg PO BID@0700,1900 06/22/16 03/10/18 Amiodarone [Cordarone] 200 mg PO DAILY 07/26/17 03/10/18 Apixaban [Eliquis] 5 mg PO BID 07/26/17 03/10/18 Benztropine Mesylate 0.5 mg PO BID@07,16 18 03/10/18 Bisacodyl [Dulcolax] 10 mg PO DAILY PRN 07/26/17 03/10/18 Gabapentin [Neurontin] 300 mg PO BID 07/26/17 03/10/18 INSULIN LISPRO (HumaLOG) [HumaLOG] 7 units SQ AC-TID@07,12,17 07/26/17 03/10/18 Lisinopril [Prinivil] 5 mg PO DAILY 07/26/17 03/10/18 Magnesium Hydroxide [Milk of 2,400 mg PO HS PRN 07/26/17 03/10/18 Magnesia] Magnesium Oxide [Mag-Ox] 400 mg PO HS 07/26/17 03/10/18 Nitroglycerin Sl Tabs [Nitrostat] 0.4 mg SUBLINGUAL Q5M PRN 07/26/17 03/10/18 Pravastatin Sodium [Pravachol] 20 mg PO HS 07/26/17 03/10/18 Betamethasone Dipropionate 1 applic TOPICAL BID 03/10/18 03/10/18 [Diprolene 0.05% Ointment] Denosumab [Prolia] 60 mg SQ Q180D 03/10/18 03/10/18 Diltiazem HCl [Diltiazem 24Hr ER] 120 mg PO DAILY 03/10/18 03/10/18 Miconazole Nitrate [Lotrimin AF 1 applic TOPICAL TID 03/10/18 03/10/18 Powder] Ranitidine HCl 150 mg PO BID@07,16 03/10/18 03/10/18 Silenor 6mg 6 mg PO HS 03/10/18 03/10/18 Previous Rx's Medication Instructions Recorded Acetaminophen Tab [Tylenol] 650 mg PO Q4HR PRN #0 tab 06/25/16 Allergies Allergy/AdvReac Type Severity Reaction Status Date / Time lorazepam [From Ativan] Allergy Unknown Verified 03/10/18 20:58 nabumetone [From Relafen] Allergy Rash/Hives Verified 03/10/18 20:58 Sulfa (Sulfonamide Allergy Rash/Hives Verified 03/10/18 20:58 Antibiotics) Review of Systems ROS Statement: Those systems with pertinent positive or pertinent negative responses have been documented in the HPI. ROS Other: All systems not noted in ROS Statement are negative. Past Medical History Past Medical History: Atrial Fibrillation, Coronary Artery Disease (CAD), Cancer , Chest Pain / Angina, Diabetes Mellitus, GERD/Reflux, Hypertension, Osteoarthritis (OA), Sleep Apnea/CPAP/BIPAP Additional Past Medical History / Comment(s): PER PAST MEDICAL HX-ARTHRITIS,BP, VARICOSE VEINS, SINUS PROBLEMS, SLEEP APNEA-NO CPAP USED,GERD, BIPOLAR/MANIC DEPRESSION-PAST HOPSITALIZATION FOR SUICIDAL THOUGHTS IN [id number], HX OF FALLS (PAST FX TO SACRUM AND RT RIB), DX 12-04-15 MALIGNANT NEOPLASM UTERUS-PER ECF NO SX BUT HAS BEEN RECEIVING RADIATION TX.UTI'S. PER ECF NO HX THAT THEY ARE AWARE OF MT/CHF History of Any Multi-Drug Resistant Organisms: None Reported Past Surgical History: Adenoidectomy, Section, Cholecystectomy, Heart Catheterization With Stent, Hysterectomy, Tonsillectomy, Tubal Ligation Additional Past Surgical History / Comment(s): PER PAST HX IN 2007 HEART CATH(5 STENTS),KAMRAN CARPAL TUNNEL,PAIN CLINIC INJ(BACK)/RADIO FREQ FACET BLOCK/SACRAL X2. Past Anesthesia/Blood Transfusion Reactions: Unable to Obtain Date of Last Stent Placement:: UNK Past Psychological History: No Psychological Hx Reported Smoking Status: Never smoker Past Alcohol Use History: None Reported Past Drug Use History: None Reported - Past Family History Father Family Medical History: Unable to Obtain Mother Family Medical History: Unable to Obtain General Exam - General Exam Comments Initial Comments: GENERAL: Chronically ill-appearing female, unkempt appearance, appears older than stated age, multiple bruises on face and extremities HENT: Bruises on the face and multiple stages of healing EYES: The sclera were anicteric and conjunctiva were pink and moist. PULMONARY: Unlabored respirations. Good breath sounds bilaterally. No audible rales rhonchi or wheezing was noted. CARDIOVASCULAR: There is a regular rate and rhythm without any murmurs gallops or rubs. ABDOMEN: Obese . Soft and nontender with normal bowel sounds. SKIN: Contusions on face, left leg NEUROLOGIC: Alert and oriented to person, place, events leading up to hospitalization MUSCULOSKELETAL: Generalized weakness, atrophy of lower extremities PSYCHIATRIC: Normal psychiatric evaluation. Limitations: no limitations Limitations: no limitations Course Vital Signs 03/10/18 03/10/18 03/11/18 20:51 22:39 01:06 Temperature 97.3 F L Pulse Rate 76 77 75 Respiratory 16 16 16 Rate Blood Pressure 143/55 115/58 118/55 O2 Sat by Pulse 96 96 97 Oximetry Medical Decision Making - Medical Decision Making The patient was seen and evaluated, history was obtained from the patient and review of medical record as well as EMS Patient with recurrent falls, bruising to the left face, bruising to the left knee Considering the recurrent headache injuries, head CT and facial CT were ordered X-ray of the left knee was ordered Imaging revealed no acute injuries Labs no significant abnormalities from baseline The patient resting comfortably throughout her ED stay, this I feel she is stable for discharge back to her long-term facility - Lab Data Result diagrams: 03/10/18 21:24 03/10/18 21:24 Lab Results 03/10/18 03/10/18 03/10/18 Range/Units 21:24 21:24 21:24 WBC 6.3 (3.8-10.6) k/uL RBC 3.83 (3.80-5.40) m/uL Hgb 11.5 (11.4-16.0) gm/dL Hct 36.2 (34.0-46.0) % MCV 94.4 (80.0-100.0) fL MCH 30.1 (25.0-35.0) pg MCHC 31.8 (31.0-37.0) g/dL RDW 14.0 (11.5-15.5) % Plt Count 186 (150-450) k/uL Neutrophils % 72 % Lymphocytes % 14 % Monocytes % 6 % Eosinophils % 4 % Basophils % 1 % Neutrophils # 4.5 (1.3-7.7) k/uL Lymphocytes # 0.9 L (1.0-4.8) k/uL Monocytes # 0.4 (0-1.0) k/uL Eosinophils # 0.2 (0-0.7) k/uL Basophils # 0.1 (0-0.2) k/uL Hypochromasia Slight PT 10.0 (9.0-12.0) sec INR 1.0 (<1.2) APTT 24.8 (22.0-30.0) sec Sodium 138 (137-145) mmol/L Potassium 4.3 (3.5-5.1) mmol/L Chloride 106 (98-107) mmol/L Carbon Dioxide 28 (22-30) mmol/L Anion Gap 4 mmol/L BUN 17 (7-17) mg/dL Creatinine 0.74 (0.52-1.04) mg/dL Est GFR (CKD-EPI)AfAm >90 (>60 ml/min/1.73 sqM) Est GFR (CKD-EPI)NonAf 84 (>60 ml/min/1.73 sqM) Glucose 176 H (74-99) mg/dL Calcium 8.3 L (8.4-10.2) mg/dL Total Bilirubin 0.4 (0.2-1.3) mg/dL AST 18 (14-36) U/L ALT 24 (9-52) U/L Alkaline Phosphatase 95 (38-126) U/L Troponin I (0.000-0.034) ng/mL Total Protein 5.4 L (6.3-8.2) g/dL Albumin 2.9 L (3.5-5.0) g/dL Blood Type Blood Type Confirm Blood Type Recheck Antibody Screen Antibody Identification Antigen Identification Direct Antiglob Test Spec Expiration Date 03/10/18 03/10/18 03/10/18 Range/Units 21:24 21:24 21:27 WBC (3.8-10.6) k/uL RBC (3.80-5.40) m/uL Hgb (11.4-16.0) gm/dL Hct (34.0-46.0) % MCV (80.0-100.0) fL MCH (25.0-35.0) pg MCHC (31.0-37.0) g/dL RDW (11.5-15.5) % Plt Count (150-450) k/uL Neutrophils % % Lymphocytes % % Monocytes % % Eosinophils % % Basophils % % Neutrophils # (1.3-7.7) k/uL Lymphocytes # (1.0-4.8) k/uL Monocytes # (0-1.0) k/uL Eosinophils # (0-0.7) k/uL Basophils # (0-0.2) k/uL Hypochromasia PT (9.0-12.0) sec INR (<1.2) APTT (22.0-30.0) sec Sodium (137-145) mmol/L Potassium (3.5-5.1) mmol/L Chloride (98-107) mmol/L Carbon Dioxide (22-30) mmol/L Anion Gap mmol/L BUN (7-17) mg/dL Creatinine (0.52-1.04) mg/dL Est GFR (CKD-EPI)AfAm (>60 ml/min/1.73 sqM) Est GFR (CKD-EPI)NonAf (>60 ml/min/1.73 sqM) Glucose (74-99) mg/dL Calcium (8.4-10.2) mg/dL Total Bilirubin (0.2-1.3) mg/dL AST (14-36) U/L ALT (9-52) U/L Alkaline Phosphatase (38-126) U/L Troponin I <0.012 (0.000-0.034) ng/mL Total Protein (6.3-8.2) g/dL Albumin (3.5-5.0) g/dL Blood Type A Negative Blood Type Confirm A Negative Blood Type Recheck CABO Indicated Antibody Screen POSITIVE Antibody Identification Anti-C Antigen Identification E Antigen - NEGATIVE Direct Antiglob Test Negative Spec Expiration Date 03/13/20182323 Disposition Clinical Impression: Fall Disposition: HOME SELF-CARE Instructions: Fall Prevention for Older Adults (ED) Is patient prescribed a controlled substance at d/c from ED?: No Referrals: Kael Jon MD [Primary Care Provider] - 1-2 days
[2018-03-10 21:44] LABS: Basophils # (A) 0.1 k/uL (0-0.2); Basophils % (A) 1 %; Eosinophils # (A) 0.2 k/uL (0-0.7); Eosinophils % (A) 4 %; HCT 36.2 % (34.0-46.0); HGB 11.5 gm/dL (11.4-16.0); Hypochromasia Slight; Lymphocytes # (A) 0.9 k/uL (1.0-4.8); Lymphocytes % (A) 14 %; MCH 30.1 pg (25.0-35.0); MCHC 31.8 g/dL (31.0-37.0); MCV 94.4 fL (80.0-100.0); Mean Platelet Volume 7.3; Monocytes # (A) 0.4 k/uL (0-1.0); Monocytes % (A) 6 %; Neutrophils # (A) 4.5 k/uL (1.3-7.7); Neutrophils % (A) 72 %; Platelet Count 186 k/uL (150-450); RBC 3.83 m/uL (3.80-5.40); WBC 6.3 k/uL (3.8-10.6)
[2018-03-10 21:57] LABS: Partial Thromboplastin Time 24.8 sec (22.0-30.0)
[2018-03-10 21:58] LABS: ALT 24 U/L (9-52); AST 18 U/L (14-36); Albumin 2.9 g/dL (3.5-5.0); Alkaline Phosphatase 95 U/L (38-126); Anion Gap 4 mmol/L; Blood Urea Nitrogen 17 mg/dL (7-17); Calcium 8.3 mg/dL (8.4-10.2); Carbon Dioxide 28 mmol/L (22-30); Chloride 106 mmol/L (98-107); Glucose 176 mg/dL (74-99); Potassium 4.3 mmol/L (3.5-5.1); Sodium 138 mmol/L (137-145); Total Bilirubin 0.4 mg/dL (0.2-1.3); Total Protein 5.4 g/dL (6.3-8.2)
--- NOTE | 2018-03-10 22:59 | CT ---
EXAMINATION TYPE: CT brain ana maria logan DATE OF EXAM: 03/10/2018 COMPARISON: 02/18/2018 HISTORY: trauma, fall CT DLP: 2256.1 mGycm Automated exposure control for dose reduction was used. TECHNIQUE: CT scan of the head and cervical spine are performed without contrast. FINDINGS: There is cerebral cortical atrophy. There is no mass effect nor midline shift. There is n o sign of intracranial hemorrhage. There is patchy hypodensity in the periventricular white matter. T he calvarium appears intact. There is mild cervical kyphotic deformity. There is some narrowing of the disc spaces in the lower ce rvical spine. Facet joints are intact. There is hypertrophic facet arthropathy in the mid and lower c ervical spine. Skull base is intact. There is no compression fracture. Skull base appears intact. The re is posterior endplate spur formation at C6-7. IMPRESSION: Cerebral atrophy and chronic small vessel ischemia. No acute intracranial abnormality. No significant change. There is clearing of right frontal scalp swelling compared to old exam. Minor degenerative changes in the cervical spine. No fracture. No change.
--- NOTE | 2018-03-10 23:02 | CT ---
EXAMINATION TYPE: CT facial bones wo con DATE OF EXAM: 03/10/2018 COMPARISON: 02/18/2018 HISTORY: trauma, fall CT DLP: 577.3 mGycm Automated exposure control for dose reduction was used. TECHNIQUE: CT scan of the sinuses is performed without contrast, axial images are obtained, coronal r eformatted images are also reviewed. FINDINGS: Exam is limited somewhat by motion. As best as one can tell mandibular ring is intact. Zygo matic arches are intact. There is no evidence of a blowout fracture. Orbital margins are intact. Maxi lla appears intact. Nasal bone appears intact. I see no bony destructive process. IMPRESSION: No fracture seen. Exam limited somewhat by motion. No adverse change compared to old exam .
--- NOTE | 2018-03-10 23:27 | XR ---
EXAMINATION TYPE: XR knee limited LT DATE OF EXAM: 03/10/2018 COMPARISON: 07/26/2017 HISTORY: Left knee pain TECHNIQUE: 2 views FINDINGS: There is some spurring at the tibial tubercle. There is spurring on the patella. There is n o sign of joint effusion. There is vascular calcification. I see no fracture nor dislocation. IMPRESSION: No acute abnormality of the left knee. No fracture. No change.
[2018-03-11 01:09] VITALS: BP 118/55; PULSE 75
== END 2018-03-11 02:23 | disposition home or self-care (01) ==
LOC: EC 20:49
DX: S80.02XA Contusion of left knee, initial encounter (principal); S00.83XA Contusion of other part of head, initial encounter; S00.33XA Contusion of nose, initial encounter; M62.81 Muscle weakness (generalized); M62.562 Muscle wasting and atrophy, not elsewhere classified, left lower leg; M62.561 Muscle wasting and atrophy, not elsewhere classified, right lower leg; R29.6 Repeated falls; I48.91 Unspecified atrial fibrillation; I10 Essential (primary) hypertension; I25.10 Atherosclerotic heart disease of native coronary artery without angina pectoris; E11.9 Type 2 diabetes mellitus without complications; K21.9 Gastro-esophageal reflux disease without esophagitis; G47.30 Sleep apnea, unspecified; F32.9 Major depressive disorder, single episode, unspecified; Z88.2 Allergy status to sulfonamides; Z88.6 Allergy status to analgesic agent; Z88.8 Allergy status to other drugs, medicaments and biological substances; Z79.01 Long term (current) use of anticoagulants; Z79.4 Long term (current) use of insulin; Z79.52 Long term (current) use of systemic steroids; Z79.899 Other long term (current) drug therapy; Z85.42 Personal history of malignant neoplasm of other parts of uterus; Z92.3 Personal history of irradiation; Z86.79 Personal history of other diseases of the circulatory system; Z95.5 Presence of coronary angioplasty implant and graft; W23.1XXA Caught, crushed, jammed, or pinched between stationary objects, initial encounter; Y93.89 Activity, other specified; Y92.129 Unspecified place in nursing home as the place of occurrence of the external cause
CPT/HCPCS: 36415; 70450; 70486; 72125; 80053; 84484; 85025; 85610; 85730; 86850; 86870; 86880; 86900; 86901; 86902; 99284

== ENCOUNTER 2018-05-13 22:18 | Inpatient (IN) | payer MEDICARE, BC, OTHER ==
--- NOTE | 2018-05-13 23:35 | XR ---
EXAMINATION TYPE: XR chest 2V DATE OF EXAM: 05/13/2018 COMPARISON: 02/18/2018 HISTORY: Chest pain TECHNIQUE: Frontal and lateral views of the chest are obtained. FINDINGS: There is no heart failure nor confluent pneumonic infiltrate. There is slight coarsening o f the lung markings in the left lower lobe. There are chest leads. Thoracic aorta is atheromatous. Th ere is no definite pleural effusion. IMPRESSION: Mild fibrotic changes left lower lobe. No heart failure. No significant change compared to old exam.
[2018-05-13 23:36] LABS: Basophils % (A) 0 %; Eosinophils # (A) 0.1 k/uL (0-0.7); Eosinophils % (A) 1 %; HCT 35.1 % (34.0-46.0); HGB 11.2 gm/dL (11.4-16.0); Lymphocytes % (A) 11 %; MCH 29.4 pg (25.0-35.0); MCHC 31.9 g/dL (31.0-37.0); MCV 92.4 fL (80.0-100.0); Monocytes # (A) 0.6 k/uL (0-1.0); Monocytes % (A) 7 %; Neutrophils # (A) 7.5 k/uL (1.3-7.7); Neutrophils % (A) 79 %; Platelet Count 229 k/uL (150-450); RDW 14.1 % (11.5-15.5); WBC 9.5 k/uL (3.8-10.6)
[2018-05-13 23:39] LABS: Albumin 3.3 g/dL (3.5-5.0); Calcium 8.4 mg/dL (8.4-10.2); Magnesium 2.5 mg/dL (1.6-2.3); Total Bilirubin 0.9 mg/dL (0.2-1.3); Total Protein 6.1 g/dL (6.3-8.2)
[2018-05-13 23:41] LABS: Partial Thromboplastin Time 25.8 sec (22.0-30.0); Prothrombin Time 10.1 sec (9.0-12.0)
[2018-05-13 23:53] LABS: Potassium 4.4 mmol/L (3.5-5.1)
--- NOTE | 2018-05-13 23:56 | ED ---
Chest Pain HPI - General Chief Complaint: Chest Pain Stated Complaint: Chest Pain Time Seen by Provider: 05/13/18 22:53 Source: EMS Mode of arrival: EMS Limitations: no limitations - History of Present Illness Initial Comments: Patient is a 67-year-old female presented for chest pain. Patient states that the chest pain started 2 hours prior to presentation it felt like a pressure in the middle of her chest radiating to the left shoulder. It was constant and she also admitted some shortness of breath. She states that she has been coughing and having fevers and chills. Patient also admits to some diarrhea but no abdominal pain and no nausea/vomiting. - Related Data Home Medications Medication Instructions Recorded Confirmed Anastrozole [Arimidex] 1 mg PO DAILY 06/22/16 04/26/18 Cholecalciferol [Vitamin D3] 4,000 unit PO HS 06/22/16 04/26/18 DULoxetine HCL [Cymbalta] 60 mg PO DAILY 06/22/16 04/26/18 Insulin Glargine [Lantus] 27 unit SQ DAILY 06/22/16 04/26/18 Menthol [Biofreeze] 1 applic TOPICAL TID 06/22/16 04/26/18 Potassium Chloride ER [K-Dur 10] 10 meq PO BID 06/22/16 04/26/18 lamoTRIgine [LaMICtal] 150 mg PO BID 06/22/16 04/26/18 Amiodarone [Cordarone] 200 mg PO DAILY 07/26/17 04/26/18 Apixaban [Eliquis] 5 mg PO BID 07/26/17 04/26/18 Benztropine Mesylate 0.5 mg PO BID 07/26/17 04/26/18 Bisacodyl [Dulcolax] 10 mg RECTAL DAILY PRN 07/26/17 04/18/18 Gabapentin [Neurontin] 300 mg PO BID 07/26/17 04/26/18 INSULIN LISPRO (HumaLOG) [HumaLOG] 7 units SQ AC-TID@07,12,07/26/17 04/26/18 Lisinopril [Prinivil] 10 mg PO DAILY 07/26/17 04/26/18 Magnesium Hydroxide [Milk of 30 ml PO HS PRN 07/26/17 04/18/18 Magnesia] Magnesium Oxide [Mag-Ox] 400 mg PO HS 07/26/17 04/26/18 Nitroglycerin Sl Tabs [Nitrostat] 0.4 mg SUBLINGUAL Q5M PRN 07/26/17 04/18/18 Pravastatin Sodium [Pravachol] 20 mg PO HS 07/26/17 04/26/18 Denosumab [Prolia] 60 mg SQ Q180D 03/10/18 04/18/18 Ranitidine HCl 150 mg PO BID 03/10/18 04/26/18 Eucerin Cream 1 applicate TOPICAL DAILY 04/18/18 04/26/18 Minerin Lotion 1 applicate TOPICAL TID 04/18/18 04/26/18 Mylanta 30 ml PO Q6H PRN 04/18/18 04/18/18 Nystatin/Triamcin 1 applicate TOPICAL BID 04/18/18 04/18/18 [Nystatin-Triamcinolone Cream] Previous Rx's Medication Instructions Recorded Acetaminophen Tab [Tylenol] 650 mg PO Q4HR PRN #0 tab 06/25/16 Allergies Allergy/AdvReac Type Severity Reaction Status Date / Time lorazepam [From Ativan] Allergy Unknown Verified 04/26/18 09:38 nabumetone [From Relafen] Allergy Rash/Hives Verified 04/26/18 09:38 Sulfa (Sulfonamide Allergy Rash/Hives Verified 04/26/18 09:38 Antibiotics) Review of Systems ROS Statement: Those systems with pertinent positive or pertinent negative responses have been documented in the HPI. Constitutional: Positive for chills, fatigue and fever. HENT: Negative for congestion. Respiratory: Negative for chest tightness, and wheezing. Positive for shortness breath and for cough. Cardiovascular: Negative for chest pain and palpitations. Gastrointestinal: Negative for abdominal pain. Negative for abdominal distention , diarrhea, nausea and vomiting. Genitourinary: Negative for dysuria. Musculoskeletal: Negative for back pain, neck pain and neck stiffness. Skin: Negative for color change. Neurological: Negative for dizziness, speech difficulty, weakness and light- headedness. Psychiatric/Behavioral: Negative for agitation and confusion. Negative for anxiety ROS Other: All systems not noted in ROS Statement are negative. EKG Findings - EKG Comments: EKG Findings:: EKG shows right bundle branch block with a rate of 86 bpm, OH interval 106, QRS was 64, QTC 531. There is mild ST elevations in lead 3 but appears to be consistent with prior EKGs. There is also minor ST depression in V1 which is again consistent with old EKGs. Past Medical History Past Medical History: Atrial Fibrillation, Coronary Artery Disease (CAD), Cancer , Chest Pain / Angina, Diabetes Mellitus, GERD/Reflux, Hypertension, Osteoarthritis (OA), Sleep Apnea/CPAP/BIPAP Additional Past Medical History / Comment(s): PER PAST MEDICAL HX-ARTHRITIS,BP, VARICOSE VEINS, SINUS PROBLEMS, SLEEP APNEA-NO CPAP USED,GERD, BIPOLAR/MANIC DEPRESSION-PAST HOPSITALIZATION FOR SUICIDAL THOUGHTS IN 2006 & IN 2O08, HX OF FALLS(PAST FX TO SACRUM AND RT RIB), DX 12-04-15 MALIGNANT NEOPLASM UTERUS-PER ECF NO SX BUT HAS BEEN RECEIVING RADIATION TX-unk last tx per ecf nurse- receives chemo injection every 6 mos-unk last dose per ecf nurse.UTI'S-none recent History of Any Multi-Drug Resistant Organisms: None Reported Past Surgical History: Adenoidectomy, Section, Cholecystectomy, Heart Catheterization With Stent, Hysterectomy, Tonsillectomy, Tubal Ligation Additional Past Surgical History / Comment(s): PER PAST HX IN 2007 HEART CATH(5 STENTS),KAMRAN CARPAL TUNNEL,PAIN CLINIC INJ(BACK)/RADIO FREQ FACET BLOCK/SACRAL X2. Past Anesthesia/Blood Transfusion Reactions: Unable to Obtain Date of Last Stent Placement:: UNK Past Psychological History: Bipolar, Depression Smoking Status: Never smoker Past Alcohol Use History: None Reported Past Drug Use History: None Reported - Past Family History Father Family Medical History: Unable to Obtain Mother Family Medical History: Unable to Obtain General Exam - General Exam Comments Initial Comments: Constitutional: Pt is oriented to person, place, and time. Pt appears well- developed and well-nourished. No distress. HENT: Head: Normocephalic and atraumatic. Eyes: EOM are normal. Neck: Normal range of motion. Neck supple. Cardiovascular: Normal rate, regular rhythm, S1 normal, S2 normal and normal heart sounds. Exam reveals no gallop and no friction rub. No murmur heard. Pulmonary/Chest: Effort normal and breath sounds normal. No tachypnea and no bradypnea. No respiratory distress. No wheezes or rales noted. Abdominal: Soft. Bowel sounds are normal. Pt exhibits no shifting dullness, no distension, no pulsatile liver, no fluid wave, no abdominal bruit and no ascites. There is no tenderness. There is no rigidity, no rebound, no guarding, no tenderness at McBurney's point and negative Garcia's sign. Musculoskeletal: Normal range of motion. Neurological: Pt is alert and oriented to person, place, and time. No cranial nerve deficit. Skin: Skin is warm and dry. No rash noted. Pt is not diaphoretic. No erythema. No pallor. Psychiatric: Pt has a normal mood and affect. Pt behavior is normal. Thought content normal. Limitations: no limitations Course Vital Signs 05/13/18 05/13/18 05/13/18 22:21 22:28 22:30 Temperature 98.1 F Pulse Rate 89 Respiratory 16 Rate Blood Pressure 98/47 98/47 O2 Sat by Pulse 96 95 95 Oximetry 05/13/18 05/13/18 05/13/18 22:40 22:50 23:00 Temperature Pulse Rate 79 80 Respiratory 18 16 18 Rate Blood Pressure 96/51 96/51 96/51 O2 Sat by Pulse 93 L 95 95 Oximetry 05/13/18 05/13/18 05/13/18 23:10 23:20 23:30 Temperature Pulse Rate 82 77 80 Respiratory 18 25 H 24 Rate Blood Pressure 107/73 107/73 107/73 O2 Sat by Pulse 95 96 95 Oximetry 05/13/18 05/13/18 05/13/18 23:40 23:50 23:53 Temperature Pulse Rate 80 80 80 Respiratory 31 H 24 33 H Rate Blood Pressure 113/70 113/70 113/70 O2 Sat by Pulse Oximetry 05/14/18 05/14/18 05/14/18 00:00 00:30 01:00 Temperature Pulse Rate 100 103 H 79 Respiratory 41 H 23 32 H Rate Blood Pressure 113/70 115/55 107/78 O2 Sat by Pulse 96 Oximetry 05/14/18 01:30 Temperature Pulse Rate 105 H Respiratory 20 Rate Blood Pressure 118/65 O2 Sat by Pulse Oximetry - Reevaluation(s) Reevaluation #1: 05/14/18 01:44 - patient stated that she was experiencing worsening chest pain approximately 30 minutes ago and therefore repeat EKG was ordered and patient was given morphine. Repeat EKG shows persistent right bundle-branch block with a rate of 79, OH interval 126, QRS 170 and QTc of 527. The remaining slight elevation of the ST segment of lead 3 but this appears to be consistent with prior EKGs and only slightly changed from EKG performed previously. There are also ST depressions in 1 and aVL but these are again persistent in old EKGs. Cardiology has been paged to discuss case. D-dimer is also noted to be positive and therefore CT PE study will be initiated. Patient states that her pain is now significantly improved after the morphine Reevaluation #2: 05/14/18 02:28 Case discussed with cardiology and they recommended that patient be placed on heparin drip for an NSTEMI. EKG was transmitted and they see no obvious signs of STEMI. CT PE is negative for PE and did show infiltrates. Therefore patient will be given Lasix as her BNP was also elevated and started on a Coverage with vancomycin and Zosyn Chest Pain MDM - MDM Laboratory studies showed that there is no significant leukocytosis and electrolytes were relatively within normal limits. As noted previously, d- dimer was elevated at 3.[address] PE study is been ordered. BNP is also noted to be elevated at 1550 and troponin was negative at 0.012. At the time of this dictation, patient is resting in bed comfortably in no acute distress with no chest pain. Callback from cardiology this again pending case will be signed out to night physician who will also patient care. Regardless, the patient will be admitted to the hospital for further evaluation and ACS rule out. Disposition Clinical Impression: Chest pain, Elevated brain natriuretic peptide (BNP) level Disposition: ADMITTED IP TO THIS HOSP Condition: Fair Instructions: Chest Pain (ED) Referrals: Kael Jon MD [Primary Care Provider] - 1-2 days Decision to Admit Reason: Admit from EC Decision Date: 05/14/18 Decision Time: 01:46
[2018-05-14] MEDS ORDERED: MORPHINE SULFATE 4 MG/ML SYRINGE IVP STA (00:33)
[2018-05-14] MEDS ORDERED: ASPIRIN 81 MG PO STA (01:50)
[2018-05-14] MEDS ORDERED: NALOXONE 0.4 MG/ML 1 ML VIAL IV PRN (01:51)
--- NOTE | 2018-05-14 02:23 | CT ---
EXAMINATION TYPE: CT chest angio for PE DATE OF EXAM: 05/14/2018 COMPARISON: None HISTORY: chest pain CT DLP: 392 mGycm Automated exposure control for dose reduction was used. CONTRAST: CT Chest for pulmonary embolism performed with with IV Contrast, patient injected with 65mL mL of Iso arvind 370. FINDINGS: There are 3-D post processed images. There is patchy interstitial infiltrate throughout the lungs. I see no mediastinal or bronchial adeno lilly. Heart is enlarged. Ascending aorta measures 3.8 cm. There is no evidence of dissection. There is normal contrast opacification of the pulmonary arteries. There are no filling defects. There is so me mild infiltrate and atelectasis at the lung bases. There is gastric sling noted. IMPRESSION: Cardiomegaly. No evidence of pulmonary embolism. Patchy infiltrates and atelectasis at the lung bases . Interstitial pulmonary infiltrate throughout the lungs. No pleural fluid seen.
[2018-05-14] MEDS ORDERED: VANCOMYCIN IV PER PHARMACY 1 EACH MISC MISCELLANE PRN (02:25)
[2018-05-14] MEDS ORDERED: FUROSEMIDE 10 MG/ML 4 ML VIAL IV STA (02:25)
[2018-05-14] MEDS ORDERED: HEPARIN SODIUM,PORCINE 5,000 UNIT/ML 1 ML VIAL IV STA (02:26)
[2018-05-14] MEDS ORDERED: PIPERACILLIN-TAZOBACTAM 3.375 GM in SODIUM CHLORIDE 0.9% 100 ML IVPB SCH (02:30)
[2018-05-14] MEDS ORDERED: HEPARIN SOD,PORK IN 0.45% NACL 25,000 UNIT in 0.45% NACL 1 500ML.BAG IV SCH (02:30)
[2018-05-14] MEDS ORDERED: VANCOMYCIN 2,000 MG in SODIUM CHLORIDE 0.9% 500 ML 500 ML IVPB SCH (04:00)
[2018-05-14] MEDS: MORPHINE SULFATE 4 MG/ML SYRINGE IV PRN ×2 (05:09→12:28)
--- NOTE | 2018-05-14 09:55 | CONS ---
CONSULTATION Mrs. Valladares is a 67-year-old female who is seen for chest pain. At present, patient is sleepy, unable to give any detailed history. Patient was transferred from [facility] with a complaint of chest pain. She cannot describe any pain at present and she denies any pain. The pain was in the left precordial area radiating to the chest which was sharp pain. According to the chart, the patient was having some fever or chills, but only 1 temperature is noted here. Patient also admitted that she was having some diarrhea. This patient has a past history of atrial fibrillation, has a history of previous cardiac catheterization. I am not sure the patient had any stent placement. I do not have any details available. Patient has a history of diabetes and paroxysmal atrial fibrillation. PAST MEDICAL HISTORY: History includes paroxysmal atrial fibrillation, history of coronary artery disease, history of sleep apnea, The patient also has been treated for cancer of the uterus and there was possibility there was evidence of metastasis to ribs as well as probably abdominal metastases. The patient has been getting chemotherapy as well as radiation therapy. The details of which are not available. The patient has appendicectomy, cholecystectomy, tubal ligation, and hysterectomy. MEDICATIONS: The patient's home medications reviewed: Eliquis, Dulcolax, amiodarone, insulin, Pravachol, Prolia. PHYSICAL EXAMINATION: At present reveals a 67-year-old obesely built female who does not appear to be in any acute distress. Blood pressure is 101/75 mmHg. The patient's respiratory was rate was high in the emergency room initially. Heart rate is oxygen saturation is 98%. Heart rate is 76 per minute. HEENT examination is negative. Neck is supple. There is no increase in jugular venous pressure. Both the carotid pulses are felt. There is no bruit. Chest is symmetrical. Heart the PMI is not felt. First and second heart sounds are heard. Lungs examination revealed bilateral scattered rhonchi. ABDOMEN: Obese. Soft. Extremities: Peripheral pulses are not felt. The patient's only 1 set of troponin is normal. BNP level is 1550 which is not significantly elevated. The patient's D-dimer was elevated. Patient underwent a CT scan of the chest. There was no evidence of pulmonary embolism. There was some bilateral atelectasis. Patient's white count is normal. FINAL IMPRESSION: Chest pain suggestive of atypical angina. EKG shows evidence of right bundle branch block pattern without any acute ST-segment changes. We will recommend to obtain serial EKGs. If the troponins are negative, then heparin can be discontinued. Patient's overall prognosis is guarded. We do not know the exact details of the patient's metastatic cancer. MMODL / IJN: [id number] /
[2018-05-14] MEDS: IPRATROPIUM-ALBUTEROL 3 ML NEB INHALATION SCH ×3 (11:54→19:24)
[2018-05-14] MEDS: PIPERACILLIN-TAZOBACTAM 3.375 GM in SODIUM CHLORIDE 0.9% 100 ML IVPB SCH ×2 (13:53→21:29)
[2018-05-14] MEDS ORDERED: ACETAMINOPHEN TAB 325 MG TAB PO PRN (16:08)
[2018-05-14] MEDS ORDERED: BISACODYL 10 MG SUPP RECTAL PRN (16:08)
[2018-05-14] MEDS ORDERED: DENOSUMAB 60 MG/ML 1 ML SYRINGE SQ SCH (16:15)
--- NOTE | 2018-05-14 16:58 | P.HPIM ---
History of Present Illness 67-year-old female was admitted that observation for chest pain to rule out pulmonary embolism. I'm unable to get any significant of history from the patient as patient is quite a bit drowsy, barely arousable with verbal stool I unable to provide any history unable to assess his orientation. Patient apparently was oriented 3 yesterday. She was comparing a pressure-like chest pain. Daily was consulted cardiology evaluated the patient. Upon reviewing her past medical history patient appears to have cervical cancer metastatic disease, labile to get in touch with the retirement facility at this time. Patient is quite a bit drowsy probably because of the morphine she is receiving which will be discontinued. Well started the workup for altered mental status starting with CAT scan of the head. Patient apparently had fever yesterday patient is on broad-spectrum antibodies expected as were obtained a chest CAT scan did show diffuse infiltrate can be atypical pneumonia. Patient was also given a dose of Lasix. Patient will be given's demise as well along with vancomycin and Zosyn which showed ordered from ER. We'll also obtain ammonia level. Patient is on eliquis and has history of atrial fibrillation presently rate controlled. Review of Systems Unable to obtain Past Medical History Past Medical History: Atrial Fibrillation, Coronary Artery Disease (CAD), Cancer , Chest Pain / Angina, Diabetes Mellitus, GERD/Reflux, Hypertension, Osteoarthritis (OA), Sleep Apnea/CPAP/BIPAP Additional Past Medical History / Comment(s): PER PAST MEDICAL HX-ARTHRITIS,BP, VARICOSE VEINS, SINUS PROBLEMS, SLEEP APNEA-NO CPAP USED,GERD, BIPOLAR/MANIC DEPRESSION-PAST HOPSITALIZATION FOR SUICIDAL THOUGHTS IN 2006 & IN 2O08, HX OF FALLS(PAST FX TO SACRUM AND RT RIB), DX 6-16 MALIGNANT NEOPLASM UTERUS-PER ECF NO SX BUT HAS BEEN RECEIVING RADIATION TX-unk last tx per ecf nurse- receives chemo injection every 6 mos-unk last dose per ecf nurse.UTI'S-none recent History of Any Multi-Drug Resistant Organisms: None Reported Past Surgical History: Adenoidectomy, Section, Cholecystectomy, Heart Catheterization With Stent, Hysterectomy, Tonsillectomy, Tubal Ligation Additional Past Surgical History / Comment(s): PER PAST HX IN 2007 HEART CATH(5 STENTS),KAMRAN CARPAL TUNNEL,PAIN CLINIC INJ(BACK)/RADIO FREQ FACET BLOCK/SACRAL X2. Past Anesthesia/Blood Transfusion Reactions: Unable to Obtain Date of Last Stent Placement:: UNK Past Psychological History: Bipolar, Depression Smoking Status: Never smoker Past Alcohol Use History: None Reported Past Drug Use History: None Reported - Past Family History Father Family Medical History: Unable to Obtain Mother Family Medical History: Unable to Obtain Medications and Allergies Home Medications Medication Instructions Recorded Confirmed Type Anastrozole [Arimidex] 1 mg PO DAILY 06/22/16 05/14/18 History Cholecalciferol [Vitamin D3] 4,000 unit PO HS 06/22/16 05/14/18 History DULoxetine HCL [Cymbalta] 60 mg PO DAILY 06/22/16 05/14/18 History Insulin Glargine [Lantus] 27 unit SQ DAILY 06/22/16 05/14/18 History Menthol [Biofreeze] 1 applic TOPICAL TID 06/22/16 05/14/18 History Potassium Chloride ER [K-Dur 10] 10 meq PO BID 06/22/16 05/14/18 History lamoTRIgine [LaMICtal] 150 mg PO Q12H 06/22/16 05/14/18 History Acetaminophen Tab [Tylenol] 650 mg PO Q4HR PRN #0 tab 06/25/16 05/14/18 Rx Amiodarone [Cordarone] 200 mg PO DAILY 07/26/17 05/14/18 History Apixaban [Eliquis] 5 mg PO BID 07/26/17 05/14/18 History Benztropine Mesylate 0.5 mg PO BID@0700,1600 07/26/17 05/14/18 History Bisacodyl [Dulcolax] 10 mg RECTAL DAILY PRN 07/26/17 05/14/18 History Gabapentin [Neurontin] 300 mg PO BID 07/26/17 05/14/18 History INSULIN LISPRO (HumaLOG) [HumaLOG] 7 units SQ AC-TID@07,12,07/26/17 05/14/18 History Magnesium Hydroxide [Milk of 30 ml PO HS PRN 07/26/17 05/14/18 History Magnesia] Magnesium Oxide [Mag-Ox] 400 mg PO HS 07/26/17 05/14/18 History Nitroglycerin Sl Tabs [Nitrostat] 0.4 mg SUBLINGUAL Q5M PRN 07/26/17 05/14/18 History Pravastatin Sodium [Pravachol] 20 mg PO HS@2000 07/26/17 05/14/18 History Denosumab [Prolia] 60 mg SQ Q180D 03/10/18 05/14/18 History Ranitidine HCl 150 mg PO BID@0700,1600 03/10/18 05/14/18 History Minerin Lotion 1 applicate TOPICAL BID 04/18/18 05/14/18 History Mylanta 30 ml PO Q6H PRN 04/18/18 05/14/18 History Lisinopril [Zestril] 10 mg PO DAILY 05/14/18 05/14/18 History Allergies Allergy/AdvReac Type Severity Reaction Status Date / Time lorazepam [From Ativan] Allergy Unknown Verified 05/14/18 07:17 nabumetone [From Relafen] Allergy Rash/Hives Verified 05/14/18 07:17 Sulfa (Sulfonamide Allergy Rash/Hives Verified 05/14/18 07:17 Antibiotics) Physical Exam Vitals: Vital Signs Temp Pulse Resp BP Pulse Ox 05/14/18 16:00 89 23 120/93 05/14/18 12:09 86 05/14/18 12:00 73 22 98/64 100 05/14/18 11:55 74 05/14/18 10:00 77 16 100/57 97 05/14/18 08:00 73 15 111/53 99 05/14/18 07:00 76 18 101/75 98 05/14/18 06:00 76 20 105/92 98 05/14/18 05:40 73 19 105/92 97 05/14/18 05:20 76 60 H 105/92 93 L 05/14/18 05:00 77 23 101/60 93 L 05/14/18 04:40 77 23 101/60 94 L 05/14/18 04:20 77 17 101/60 05/14/18 04:00 78 17 118/50 89 L 05/14/18 03:40 78 17 118/50 95 05/14/18 03:20 78 19 118/50 94 L 05/14/18 03:00 77 18 114/67 80 L 05/14/18 02:40 24 114/67 05/14/18 02:30 80 18 119/68 96 05/14/18 02:00 119/68 05/14/18 01:30 105 H 20 118/65 05/14/18 01:00 79 32 H 107/78 96 05/14/18 00:30 103 H 23 115/55 05/14/18 00:00 100 41 H 113/70 05/13/18 23:53 80 33 H 113/70 05/13/18 23:50 80 24 113/70 05/13/18 23:40 80 31 H 113/70 05/13/18 23:30 80 24 107/73 95 05/13/18 23:20 77 25 H 107/73 96 05/13/18 23:10 82 18 107/73 95 05/13/18 23:00 18 96/51 95 05/13/18 22:50 80 16 96/51 95 05/13/18 22:40 79 18 96/51 93 L 05/13/18 22:30 98/47 95 05/13/18 22:28 95 05/13/18 22:21 98.1 F 89 16 98/47 96 Intake and Output 05/14/18 05/14/18 05/14/18 06:59 14:59 22:59 Intake Total 213.333 Output Total 500 1900 Balance -500 -1686.667 Intake: Intake, IV Titration 213.333 Amount Heparin Sod,Pork in 0.45% 213.333 NaCl 25,000 unit In 0.45 % NaCl 1 500ml.bag @ 20 mls/hr IV .Q24H [facility] Rx#: [id number] Output: Urine 500 1900 Straight 950 PHYSICAL EXAMINATION: GENERAL: Barely arousable, unable does his orientation HEENT: Pupils are round and equally reacting to light. EOMI. No scleral icterus. No conjunctival pallor. Normocephalic, atraumatic. No pharyngeal erythema. No thyromegaly. CARDIOVASCULAR: S1 and S2 present. No murmurs, rubs, or gallops. PULMONARY: Rhonchus breath sounds no wheezing was appreciated ABDOMEN: Soft, nontender, nondistended, normoactive bowel sounds. No palpable organomegaly. MUSCULOSKELETAL: No joint swelling or deformity. EXTREMITIES: No cyanosis, clubbing, or pedal edema. NEUROLOGICAL: Unable to assess. SKIN: No rashes. Results CBC & Chem 7: 05/13/18 22:45 12/01/18 22:45 Labs: Abnormal Lab Results - Last 24 Hours (Table) 05/13/18 05/13/18 05/13/18 Range/Units 22:45 22:45 22:45 Hgb 11.2 L (11.4-16.0) gm/dL APTT (22.0-30.0) sec D-Dimer 3.53 H (<0.60) mg/L FEU BUN 26 H (7-17) mg/dL Glucose 100 H (74-99) mg/dL Magnesium 2.5 H (1.6-2.3) mg/dL Total Protein 6.1 L (6.3-8.2) g/dL Albumin 3.3 L (3.5-5.0) g/dL 05/14/18 Range/Units 10:19 Hgb (11.4-16.0) gm/dL APTT 35.1 H (22.0-30.0) sec D-Dimer (<0.60) mg/L FEU BUN (7-17) mg/dL Glucose (74-99) mg/dL Magnesium (1.6-2.3) mg/dL Total Protein (6.3-8.2) g/dL Albumin (3.5-5.0) g/dL Assessment and Plan Plan: -Altered mental status, encephalopathy: Patient probably has commendation of metabolic and toxic encephalopathy will start the workup with a CAT scan of the head without any contrast to rule out any intracranial hemorrhage and the opiates and benzos his barbiturates anticollagen medications were discontinued, continue with antibiotics, source is unclear but atypical pneumonia cannot be ruled out at this time continue the part from antibiotics cultures were obtained patient apparently had fever at the retirement. Also obtain ammonia level unsure patient has history of COPD. We'll also obtain ABG -Atrial fibrillation rate controlled continue with anticoagulation as there is a intracranial hematoma on the CAT scan -Diprivan diabetes with us patient will be resumed on her home regimen and if patient is not eating will have to cut down the Lantus dose to three fourths -Chest pain: Further management as per cardiology -Cervical cancer with metastasis no further history is available at this time we will obtain oncology consultation [place]-bipolar depression -Coronary artery disease Hypertension reflux disease -Sleep apnea
--- NOTE | 2018-05-14 17:48 | CT ---
EXAMINATION TYPE: CT brain wo con DATE OF EXAM: 05/14/2018 COMPARISON: 03/10/2018 HISTORY: Altered mental status. CT DLP: 1399.4 mGycm Automated exposure control for dose reduction was used. FINDINGS: There is cerebral cortical atrophy. There is no mass effect nor midline shift. There is no sign of in tracranial hemorrhage. The calvarium appears intact. IMPRESSION: CEREBRAL ATROPHY. NO ACUTE INTRACRANIAL ABNORMALITY. NO CHANGE COMPARED TO OLD EXAM.
[2018-05-14 18:08] LABS: Glucose,Whole Blood 170 mg/dL (75-99)
[2018-05-14] MEDS: INSULIN ASPART 100 UNIT/ML 1 ML 10 ML VIAL SQ SCH (18:29)
[2018-05-14] MEDS ORDERED: HEPARIN SODIUM,PORCINE 5,000 UNIT/ML 1 ML VIAL IV PRN (18:39)
[2018-05-14 20:51] LABS: Glucose,Whole Blood 69 mg/dL (75-99)
[2018-05-14] MEDS: APIXABAN 5 MG TAB PO SCH (20:55)
[2018-05-14] MEDS: MAGNESIUM OXIDE 400 MG TAB PO SCH (20:55)
[2018-05-14] MEDS: PRAVASTATIN SODIUM 20 MG TAB PO SCH (20:55)
[2018-05-14] MEDS: lamoTRIgine 100 MG TAB PO SCH (20:55)
[2018-05-14] MEDS ORDERED: GABAPENTIN 300 MG CAP PO SCH (21:00)
[2018-05-14 21:12] LABS: Glucose,Whole Blood 83 mg/dL (75-99)
[2018-05-14] MEDS: AZITHROMYCIN 500 MG TAB PO SCH (21:29)
[2018-05-14] MEDS: VANCOMYCIN 2,000 MG in SODIUM CHLORIDE 0.9% 500 ML 500 ML IVPB SCH (22:01)
[2018-05-15] MEDS: HALOPERIDOL LACTATE 5 MG/ML 1 ML VIAL IVP PRN ×2 (00:27→13:01)
[2018-05-15 01:26] LABS: Appearance,Urine Clear (Clear); Bacteria,Urine Rare /hpf; Bilirubin,Urine Negative (Negative); Blood,Urine Moderate (Negative); Color,Urine Yellow; Glucose,Urine (UA) Negative (Negative); Ketones,Urine Trace (Negative); Leukocyte Esterase,Urine Large (Negative); Nitrite,Urine Negative (Negative); PH, Urine 5.5 (5.0-8.0); Protein,Urine Trace (Negative); RBC,Urine 21 /hpf (0-5); Specific Gravity,Urine 1.038 (1.001-1.035); Squamous Epithelial Cell,Urine <1 /hpf (0-4)
[2018-05-15 01:34] LABS: Amphetamine Screen,Urine Not Detected (NotDetected); Barbiturate Screen,Urine Not Detected (NotDetected); Benzodiazepines Screen,Urine Not Detected (NotDetected); Cocaine Screen,Urine Not Detected (NotDetected); Methadone Screen, Urine Not Detected (NotDetected); Opiate Screen,Urine Detected (NotDetected); Oxycodone Screen, Urine Not Detected (NotDetected); Phencyclidine Screen,Urine Not Detected (NotDetected); Tricyclic Antidepressant,Urine Not Detected (NotDetected); Urn Cannabinoid Scrn Not Detected (NotDetected)
[2018-05-15] MEDS: PIPERACILLIN-TAZOBACTAM 3.375 GM in SODIUM CHLORIDE 0.9% 100 ML IVPB SCH ×3 (03:40→19:15)
[2018-05-15] MEDS ORDERED: ZIPRASIDONE 20 MG VIAL IM STA (05:14)
[2018-05-15 05:25] LABS: HCT 36.6 % (34.0-46.0); HGB 11.6 gm/dL (11.4-16.0); Hypochromasia Moderate; MCH 30.1 pg (25.0-35.0); MCHC 31.6 g/dL (31.0-37.0); MCV 95.1 fL (80.0-100.0); Mean Platelet Volume 7.1; Platelet Count 222 k/uL (150-450); RBC 3.85 m/uL (3.80-5.40); RDW 13.8 % (11.5-15.5); WBC 8.9 k/uL (3.8-10.6)
[2018-05-15] MEDS ORDERED: SODIUM CHLORIDE 0.9% 1,000 ML IV SCH (05:30)
[2018-05-15 05:34] LABS: Calcium 7.8 mg/dL (8.4-10.2)
[2018-05-15] MEDS: FAMOTIDINE 20 MG TAB PO SCH ×2 (05:46→18:19)
[2018-05-15 06:19] LABS: Glucose,Whole Blood 165 mg/dL (75-99)
[2018-05-15] MEDS ORDERED: SODIUM CHLORIDE 0.9% 1,000 ML IV ONE (06:20)
[2018-05-15] MEDS: INSULIN ASPART 100 UNIT/ML 1 ML 10 ML VIAL SQ SCH ×6 (07:10→20:54)
[2018-05-15] MEDS: IPRATROPIUM-ALBUTEROL 3 ML NEB INHALATION SCH ×4 (08:01→19:44)
--- NOTE | 2018-05-15 08:31 | P.CRDCN ---
History of Present Illness Consult date: 05/15/18 Requesting physician: Andria Snow Consult reason: chest pain, atrial fibrillation Chief complaint: Chest Pain History of present illness: This is a 67-year-old female who resides at [facility], she has a history of diabetes, hyperlipidemia, no hypertension, paroxysmal atrial fibrillation, dementia, cervical cancer metastatic disease, she was apparently complaining of some chest discomfort and for this reason was brought to the hospital for further evaluation. Chest x-ray shows mild fibrotic changes in the left lower lobe, no heart failure. CTA of the chest shows cardiomegaly with no evidence of pulmonary embolism. EKG on presentation here showed a normal sinus rhythm with a right bundle branch block pattern. CAT scan of the brain shows cerebral atrophy with no acute intracranial abnormality. Blood pressure 160/90, heart rate currently in the 80s. White blood cell count 8.9, hemoglobin 11.6, platelet count 222. D-dimer 3.5, sodium 137, potassium 5.0, BUN 22, creatinine 0.9. Plasma lactic acid 3.0, magnesium 2.5, troponins are negative 3, BNP level 1550. Positive UTI, urine opiates detected. At the time of my examination this morning, patient currently has a sitter at the bedside, she is confused, denies chest pain at present. Past Medical History Past Medical History: Atrial Fibrillation, Coronary Artery Disease (CAD), Cancer , Chest Pain / Angina, Diabetes Mellitus, GERD/Reflux, Hypertension, Osteoarthritis (OA), Sleep Apnea/CPAP/BIPAP Additional Past Medical History / Comment(s): PER PAST MEDICAL HX-ARTHRITIS,BP, VARICOSE VEINS, SINUS PROBLEMS, SLEEP APNEA-NO CPAP USED,GERD, BIPOLAR/MANIC DEPRESSION-PAST HOPSITALIZATION FOR SUICIDAL THOUGHTS IN 2006 & IN 2O08, HX OF FALLS(PAST FX TO SACRUM AND RT RIB), DX 16 MALIGNANT NEOPLASM UTERUS-PER ECF NO SX BUT HAS BEEN RECEIVING RADIATION TX-unk last tx per ecf nurse- receives chemo injection every 6 mos-unk last dose per [facility] nurse.UTI'S-none recent History of Any Multi-Drug Resistant Organisms: None Reported Past Surgical History: Adenoidectomy, Section, Cholecystectomy, Heart Catheterization With Stent, Hysterectomy, Tonsillectomy, Tubal Ligation Additional Past Surgical History / Comment(s): PER PAST HX IN 2007 HEART CATH(5 STENTS),KAMRAN CARPAL TUNNEL,PAIN CLINIC INJ(BACK)/RADIO FREQ FACET BLOCK/SACRAL X2. Past Anesthesia/Blood Transfusion Reactions: Unable to Obtain Date of Last Stent Placement:: UNK Past Psychological History: Bipolar, Depression Smoking Status: Never smoker Past Alcohol Use History: None Reported Past Drug Use History: None Reported - Past Family History Father Family Medical History: Unable to Obtain Mother Family Medical History: Unable to Obtain Medications and Allergies Home Medications Medication Instructions Recorded Confirmed Type Anastrozole [Arimidex] 1 mg PO DAILY 06/22/16 05/14/18 History Cholecalciferol [Vitamin D3] 4,000 unit PO HS 06/22/16 05/14/18 History DULoxetine HCL [Cymbalta] 60 mg PO DAILY 06/22/16 05/14/18 History Insulin Glargine [Lantus] 27 unit SQ DAILY 06/22/16 05/14/18 History Menthol [Biofreeze] 1 applic TOPICAL TID 06/22/16 05/14/18 History Potassium Chloride ER [K-Dur 10] 10 meq PO BID 06/22/16 05/14/18 History lamoTRIgine [LaMICtal] 150 mg PO Q12H 06/22/16 05/14/18 History Acetaminophen Tab [Tylenol] 650 mg PO Q4HR PRN #0 tab 06/25/16 05/14/18 Rx Amiodarone [Cordarone] 200 mg PO DAILY 07/26/17 05/14/18 History Apixaban [Eliquis] 5 mg PO BID 07/26/17 05/14/18 History Benztropine Mesylate 0.5 mg PO BID@0700,1600 07/26/17 05/14/18 History Bisacodyl [Dulcolax] 10 mg RECTAL DAILY PRN 07/26/17 05/14/18 History Gabapentin [Neurontin] 300 mg PO BID 07/26/17 05/14/18 History INSULIN LISPRO (HumaLOG) [HumaLOG] 7 units SQ AC-TID@07,12,17 07/26/17 05/14/18 History Magnesium Hydroxide [Milk of 30 ml PO HS PRN 07/26/17 05/14/18 History Magnesia] Magnesium Oxide [Mag-Ox] 400 mg PO HS 07/26/17 05/14/18 History Nitroglycerin Sl Tabs [Nitrostat] 0.4 mg SUBLINGUAL Q5M PRN 07/26/17 05/14/18 History Pravastatin Sodium [Pravachol] 20 mg PO HS@199907/26/17 05/14/18 History Denosumab [Prolia] 60 mg SQ Q180D 03/10/18 05/14/18 History Ranitidine HCl 150 mg PO BID@0700,1600 03/10/18 05/14/18 History Minerin Lotion 1 applicate TOPICAL BID 04/18/18 05/14/18 History Mylanta 30 ml PO Q6H PRN 04/18/18 05/14/18 History Lisinopril [Zestril] 10 mg PO DAILY 05/14/18 05/14/18 History Allergies Allergy/AdvReac Type Severity Reaction Status Date / Time lorazepam [From Ativan] Allergy Unknown Verified 05/14/18 07:17 nabumetone [From Relafen] Allergy Rash/Hives Verified 05/14/18 07:17 Sulfa (Sulfonamide Allergy Rash/Hives Verified 05/14/18 07:17 Antibiotics) Physical Exam Vitals: Vital Signs Temp Pulse Pulse Resp BP BP Pulse Ox 05/15/18 03:38 120 H 160/97 05/14/18 23:00 98.0 F 114 H 16 101/57 94 L 05/14/18 21:26 77 106/52 05/14/18 20:42 72 05/14/18 20:40 98.0 F 72 82/44 96 05/14/18 19:32 76 05/14/18 19:26 76 05/14/18 19:00 98.2 F 75 20 102/58 99 05/14/18 17:51 98 05/14/18 16:00 89 23 120/93 05/14/18 12:09 86 05/14/18 12:00 73 22 98/64 100 05/14/18 11:55 74 05/14/18 10:00 77 16 100/57 97 Intake and Output 05/14/18 05/15/18 05/15/18 22:59 06:59 14:59 Intake Total 122.237 600 0 Output Total 300 Balance 122.237 300 0 Intake: Intake, IV Titration 122.237 600 Amount Heparin Sod,Pork in 0.45% 122.237 NaCl 25,000 unit In 0.45 % NaCl 1 500ml.bag @ 20 mls/hr IV .Q24H [facility] Rx#: [id number] Piperacillin-Tazobactam 3 100 .375 gm In Sodium Chloride 0.9% 100 ml @ 25 mls/hr IVPB Q8H [facility] Rx#: [id number] Vancomycin 2,000 mg In 500 Sodium Chloride 0.9% 500 ml 500 ml @ 167 mls/hr IVPB Q24H [facility] Rx#: [id number] Oral 0 Output: Urine 300 Other: Voiding Method Bedside Commode Bedside Commode Bedpan Bedpan Indwelling Catheter # Voids 0 Weight 111.13 kg PHYSICAL EXAMINATION: GENERAL: 67-year-old female in no acute distress at the time of my examination HEENT: Head is atraumatic, normocephalic. Pupils equal, round. Sclera anicteric. Conjunctiva are clear. Mucous membranes of the mouth are moist. Neck is supple. There is no elevated jugular venous pressure. No carotid bruit is heard. HEART EXAMINATION: Heart S1 S2 1 systolic murmur is heard. CHEST EXAMINATION: Lungs are clear to auscultation and precussion. No chest wall tenderness is noted on palpation or with deep breathing. ABDOMEN: Soft, nontender. Bowel sounds are heard. No organomegaly noted. EXTREMITIES: 2+ peripheral pulses with no evidence of peripheral edema and no calf tenderness noted. NEUROLOGIC [patient is awake, confused. Results 05/15/18 05:08 05/15/18 05:08 Cardiac Enzymes 05/14/18 05/14/18 Range/Units 10:19 16:20 Troponin I <0.012 <0.012 (0.000-0.034) ng/mL Coagulation 05/14/18 05/14/18 Range/Units 10:19 16:20 APTT 35.1 H 25.6 (22.0-30.0) sec CBC 05/15/18 Range/Units 05:08 WBC 8.9 (3.8-10.6) k/uL RBC 3.85 (3.80-5.40) m/uL Hgb 11.6 (11.4-16.0) gm/dL Hct 36.6 (34.0-46.0) % Plt Count 222 (150-450) k/uL Comprehensive Metabolic Panel 05/15/18 Range/Units 05:08 Sodium 137 (137-145) mmol/L Potassium 5.0 (3.5-5.1) mmol/L Chloride 106 (98-107) mmol/L Carbon Dioxide 21 L (22-30) mmol/L BUN 22 H (7-17) mg/dL Creatinine 0.98 (0.52-1.04) mg/dL Glucose 144 H (74-99) mg/dL Calcium 7.8 L (8.4-10.2) mg/dL Current Medications Generic Name Dose Route Start Last Admin Trade Name Freq PRN Reason Stop Dose Admin Acetaminophen 650 mg 05/14/18 16:08 Tylenol Tab PO Q4HR PRN Mild Pain Albuterol/Ipratropium 3 ml 05/14/18 12:00 05/15/18 08:01 Duoneb 0.5 Mg-3 Mg/3 Ml Soln INHALATION Not Given RT-QID [facility] Amiodarone HCl 200 mg 05/15/18 09:00 Cordarone PO DAILY [facility] Anastrozole 1 mg 05/15/18 09:00 Arimidex PO DAILY [facility] Apixaban 5 mg 05/14/18 21:00 05/14/18 20:55 Eliquis PO 5 mg BID [facility] Administration Azithromycin 500 mg 05/14/18 19:30 05/14/18 21:29 Zithromax PO 500 mg DAILY [facility] Administration Bisacodyl 10 mg 05/14/18 16:08 Dulcolax RECTAL DAILY PRN Constipation Duloxetine HCl 60 mg 05/15/18 09:00 Cymbalta PO DAILY [facility] Famotidine 20 mg 05/15/18 07:00 05/15/18 05:46 Pepcid PO Not Given BID@0700,1600 [facility] Haloperidol Lactate 2 mg 05/15/18 00:13 05/15/18 00:27 Haldol IVP 2 mg Q6HR PRN Administration Agitation or Acute Psychosis Piperacillin Sod/Tazobactam 100 mls @ 25 mls/hr 05/14/18 11:00 05/15/18 03:40 Sod 3.375 gm/ Sodium Chloride IVPB 25 mls/hr Q8H [facility] Administration Vancomycin HCl 2,000 mg/ 500 mls @ 167 mls/hr 05/14/18 21:00 05/14/18 22:01 Sodium Chloride IVPB 167 mls/hr Q24H [facility] Administration Sodium Chloride 1,000 mls @ 100 mls/hr 05/15/18 06:15 Saline 0.9% IV .Q10H [facility] Insulin Aspart 7 unit 05/14/18 17:00 05/15/18 07:10 Novolog SQ Not Given AC-TID@,, [facility] Insulin Aspart 0 unit 05/15/18 12:30 Novolog SQ ACHS [facility] Protocol Insulin Detemir 27 unit 05/15/18 09:00 Levemir SQ DAILY [facility] Lamotrigine 150 mg 05/14/18 21:00 05/14/18 20:55 Lamictal PO 150 mg Q12HR [facility] Administration Magnesium Oxide 400 mg 05/14/18 21:00 05/14/18 20:55 Mag-Ox PO 400 mg HS [facility] Administration Naloxone HCl 0.2 mg 05/14/18 01:51 Narcan IV Q2M PRN Opioid Reversal Pravastatin Sodium 20 mg 05/14/18 20:00 05/14/18 20:55 Pravachol PO 20 mg HS@2000 [facility] Administration Intake and Output 05/14/18 05/15/18 05/15/18 22:59 06:59 14:59 Intake Total 122.237 600 0 Output Total 300 Balance 122.237 300 0 Intake: Intake, IV Titration 122.237 600 Amount Heparin Sod,Pork in 0.45% 122.237 NaCl 25,000 unit In 0.45 % NaCl 1 500ml.bag @ 20 mls/hr IV .Q24H [facility] Rx#: [id number] Piperacillin-Tazobactam 3 100 .375 gm In Sodium Chloride 0.9% 100 ml @ 25 mls/hr IVPB Q8H [facility] Rx#: [id number] Vancomycin 2,000 mg In 500 Sodium Chloride 0.9% 500 ml 500 ml @ 167 mls/hr IVPB Q24H [facility] Rx#: [id number] Oral 0 Output: Urine 300 Other: Voiding Method Bedside Commode Bedside Commode Bedpan Bedpan Indwelling Catheter # Voids 0 Weight 111.13 kg 05/15/18 05:08 05/15/18 05:08 EKG Interpretations (text) Initial EKG showed normal sinus rhythm with a right bundle-branch block pattern Assessment and Plan Plan: Assessment and plan #1 chest pain, atypical for acute coronary syndrome. Troponins negative 3. EKG shows sinus rhythm with a right bundle branch block pattern #2 paroxysmal atrial fibrillation #3 diabetes #4 hyperlipidemia #5 dementia #6 sleep apnea #7 cervical cancer, metastatic disease Plan We will obtain an echocardiogram with Doppler study. Patient appears to be in and out of atrial fibrillation, heart rate controlled in the 80s this morning. We will continue anticoagulation with Eliquis 5 mg one tablet by mouth twice a day. Continue amiodarone and initiate a small dose of beta minal. Further recommendations to follow. DNP note has been reviewed, I agree with a documented findings and plan of care. Patient was seen and examined.
[2018-05-15] MEDS: SODIUM CHLORIDE 0.9% 1,000 ML IV SCH ×2 (09:02→18:18)
--- NOTE | 2018-05-15 10:49 | ECHOF ---
Referral Reason:pain MEASUREMENTS -------- HEIGHT: 172.7 cm WEIGHT: 111.1 kg BP: 160/97 RVIDd: 3.5 cm (< 3.3) IVSd: 1.2 cm (0.6 - 1.1) LVIDd: 4.2 cm (3.9 - 5.3) LVPWd: 1.1 cm (0.6 - 1.1) IVSs: 1.8 cm LVIDs: 2.7 cm LVPWs: 1.6 cm LA Diam: 3.3 cm (2.7 - 3.8) LAESV Index (A-L): 25.89 ml/m Ao Diam: 3.5 cm (2.0 - 3.7) AV Cusp: 2.0 cm (1.5 - 2.6) MV EXCURSION: 13.991 mm (> 18.000) MV EF SLOPE: 104 mm/s (70 - 150) EPSS: 0.5 cm RAP: 5.00 mmHg RVSP: 31.76 mmHg FINDINGS -------- Atrial fibrillation. This was a technically adequate study. The left ventricular size is normal. There is borderline concentric left ventricular hypertrophy. Overall left ventricular systolic function is normal with, an EF between 55 - 60 %. The right ventricle is mildly enlarged. Normal LA size by volume 22+/-6 ml/m2. The right atrium is normal in size. The aortic valve is trileaflet and appears structurally normal. There is mild aortic regurgitation. The mitral valve is normal. Mild mitral regurgitation is present. Mild tricuspid regurgitation present. Right ventricular systolic pressure is normal at < 35 mmHg. The right ventricular systolic pressure, as measured by Doppler, is 31.76mmHg. There is no pulmonic regurgitation present. The aortic root size is normal. Normal inferior vena cava with normal inspiratory collapse consistent with estimated right atrial pre ssure of 5 mmHg. There is no pericardial effusion. CONCLUSIONS -------- 1. Atrial fibrillation. 2. This was a technically adequate study. 3. The left ventricular size is normal. 4. There is borderline concentric left ventricular hypertrophy. 5. Overall left ventricular systolic function is normal with, an EF between 55 - 60 %. 6. The right ventricle is mildly enlarged. 7. Normal LA size by volume 22+/-6 ml/m2. 8. The aortic valve is trileaflet and appears structurally normal. 9. There is mild aortic regurgitation. 10. The mitral valve is normal. 11. Mild mitral regurgitation is present. 12. Mild tricuspid regurgitation present. 13. Right ventricular systolic pressure is normal at < 35 mmHg. 14. There is no pulmonic regurgitation present. 15. The aortic root size is normal. 16. Normal inferior vena cava with normal inspiratory collapse consistent with estimated right atrial pressure of 5 mmHg. 17. There is no pericardial effusion. BUSINESS JOB TITLES: Marcy Alcala RDCS
[2018-05-15 11:33] LABS: Glucose,Whole Blood 118 mg/dL (75-99)
--- NOTE | 2018-05-15 12:45 | P.PN ---
Subjective 67-year-old female admitted for chest pressure, was a valid by cardiology. Patient actually became severely encephalopathic all the workup is so far negative. There is no clear-cut evidence of sepsis but patient is on transfer from antibiotics urine is abnormal patient does have urinary retention. Her baseline is not clear at this time back up unrevealing be discharged today patient does have dementia and her baseline orientation is around 1-2. Patient has multiple episodes of agitation patient was given Haldol and Geodon for agitation episodes will start her on Seroquel. Neurology and oncology will evaluate the patient. Patient does have history of uterine cancer, ammonia and TSH are pending patient is severely intravascularly volume depleted with the lactic is doses and patient was given bolus of IV fluids and patient is presently on IV fluids Objective - Vital Signs Vital signs: Vital Signs Temp 97.2 F L 05/15/18 08:00 Pulse 95 05/15/18 08:00 Resp 16 05/14/18 23:00 BP 104/65 05/15/18 08:00 Pulse Ox 95 05/15/18 08:00 Intake & Output 05/14/18 05/15/18 05/15/18 18:59 06:59 18:59 Intake Total 335.570 600 0 Output Total 1900 300 Balance -1564.430 300 0 Weight 111.13 kg Intake: Intake, IV Titration 335.570 600 Amount Heparin Sod,Pork in 0.45% 335.570 NaCl 25,000 unit In 0.45 % NaCl 1 500ml.bag @ 20 mls/hr IV .Q24H [facility] Rx#: [id number] Piperacillin-Tazobactam 3 100 .375 gm In Sodium Chloride 0.9% 100 ml @ 25 mls/hr IVPB Q8H [facility] Rx#: [id number] Vancomycin 2,000 mg In 500 Sodium Chloride 0.9% 500 ml 500 ml @ 167 mls/hr IVPB Q24H [facility] Rx#: [id number] Oral 0 Output: Urine 1900 300 Straight 950 Other: Voiding Method Bedside Commode Bedpan Indwelling Catheter # Voids 0 - Exam PHYSICAL EXAMINATION: GENERAL: Barely arousable, unable does his orientation HEENT: Pupils are round and equally reacting to light. EOMI. No scleral icterus. No conjunctival pallor. Normocephalic, atraumatic. No pharyngeal erythema. No thyromegaly. CARDIOVASCULAR: S1 and S2 present. No murmurs, rubs, or gallops. PULMONARY: Rhonchus breath sounds no wheezing was appreciated ABDOMEN: Soft, nontender, nondistended, normoactive bowel sounds. No palpable organomegaly. MUSCULOSKELETAL: No joint swelling or deformity. EXTREMITIES: No cyanosis, clubbing, or pedal edema. NEUROLOGICAL: Unable to assess. SKIN: No rashes. - Labs CBC & Chem 7: 05/15/18 05:08 05/15/18 05:08 Labs: Abnormal Lab Results - Last 24 Hours (Table) 05/14/18 05/14/18 05/15/18 Range/Units 18:07 20:50 01:00 Carbon Dioxide (22-30) mmol/L BUN (7-17) mg/dL Glucose (74-99) mg/dL POC Glucose (mg/dL) 170 H 69 L (75-99) mg/dL Plasma Lactic Acid Herminio (0.7-2.0) mmol/L Calcium (8.4-10.2) mg/dL Ur Specific [place] 1.038 H (1.001-1.035) Urine Protein Trace H (Negative) Urine Ketones Trace H (Negative) Urine Blood Moderate H (Negative) Ur Leukocyte Esterase Large H (Negative) Urine RBC 21 H (0-5) /hpf Urine WBC 23 H (0-5) /hpf Urine Bacteria Rare H (None) /hpf Urine Opiates Screen (NotDetected) 05/15/18 05/15/18 05/15/18 Range/Units 01:00 05:08 05:08 Carbon Dioxide 21 L (22-30) mmol/L BUN 22 H (7-17) mg/dL Glucose 144 H (74-99) mg/dL POC Glucose (mg/dL) (75-99) mg/dL Plasma Lactic Acid Herminio 3.0 H* (0.7-2.0) mmol/L Calcium 7.8 L (8.4-10.2) mg/dL Ur Specific [place] (1.001-1.035) Urine Protein (Negative) Urine Ketones (Negative) Urine Blood (Negative) Ur Leukocyte Esterase (Negative) Urine RBC (0-5) /hpf Urine WBC (0-5) /hpf Urine Bacteria (None) /hpf Urine Opiates Screen Detected H (NotDetected) 05/15/18 05/15/18 05/15/18 Range/Units 06:17 09:27 11:26 Carbon Dioxide (22-30) mmol/L BUN (7-17) mg/dL Glucose (74-99) mg/dL POC Glucose (mg/dL) 165 H 118 H (75-99) mg/dL Plasma Lactic Acid Herminio 0.6 L (0.7-2.0) mmol/L Calcium (8.4-10.2) mg/dL Ur Specific [place] (1.001-1.035) Urine Protein (Negative) Urine Ketones (Negative) Urine Blood (Negative) Ur Leukocyte Esterase (Negative) Urine RBC (0-5) /hpf Urine WBC (0-5) /hpf Urine Bacteria (None) /hpf Urine Opiates Screen (NotDetected) Microbiology - Last 24 Hours (Table) 05/15/18 01:00 Urine Culture - Preliminary Urine,Voided 05/13/18 22:45 Blood Culture - Preliminary Blood No Growth after 24 hours Assessment and Plan Plan: -Altered mental status, encephalopathy: Patient probably has metabolic and toxic encephalopathy, CAT scan of the head did not show any significant abnormality infection cannot be ruled out patient does have abnormal urine with urinary retention presently on broad-spectrum antibiotics is also being treated for atypical pneumonia. No obvious clear-cut source of infection or sepsis. She appears to have baseline dementia. Patient is quite a bit intravascularly volume depleted that can cause confusion as well along with urinary retention IV fluids lactic acidosis secondary to severe intravascular depletion rather than sepsis continue with IV fluids. We will use a Seroquel and Haldol as needed for agitation and delirium -Possible advanced dementia -Atrial fibrillation rate controlled continue with anticoagulation - Type-2 diabetes: Continue sliding scale insulin -Chest pain: Further management as per cardiology -Cervical cancer with metastasis no further history is available at this time we will obtain oncology consultation -bipolar depression -Coronary artery disease Hypertension reflux disease -Sleep apnea
--- NOTE | 2018-05-15 12:59 | P.CONS ---
History of Present Illness - Reason for Consult Consult date: 05/15/18 ovarian/breat cancer Requesting physician: Jadyn Kessler - Chief Complaint chest pain - History of Present Illness Ms. Valladares is confused when examined, unable to provide any history. From review of the chart from [facility] and appears the patient follows with Dr. Hernandez, full details of the malignancy history are unknown but, she is taking Arimidex. This is typically a hormone receptor positive breast cancer treatment. Chart review from this EMR summarized here: 06/29-ER visit for chest pain, med list includes arimidex, no PMH, PSH documents hysterectomy 02/15/17-CT brain done, documents Hx: breast cancer 04/01/17-CT CAP done, documents Hx: ovarian, uterine and breast cancer, reports no changes to suggest metastatic disease, uterus and ovaries are surgically absent 07/31-xrays after fall, nothing in reports suggests mets to bone 02/14/18-Bone density reports osteopenia. CT CAP documents Hx breast cancer, reports shotty adenpathy in chest, hepatic dome liver lesion, lesion in spleen and possible omental mets. twice in Feb 2018-multiple xrays due to falls, no reported bone mets 04/26/18-abd US-confirms spleen mass, documents "no procedure" 05/13/18-info from ECF documented in notes pt has had radiation, unknown last treatment, pt receives injections every 6 months, no documentation of last injection. CTA neg for PE, Brain CT neg for mets. Review of Systems ROS unobtainable: due to mental status Past Medical History Past Medical History: Atrial Fibrillation, Coronary Artery Disease (CAD), Cancer , Chest Pain / Angina, Diabetes Mellitus, GERD/Reflux, Hypertension, Osteoarthritis (OA), Sleep Apnea/CPAP/BIPAP Additional Past Medical History / Comment(s): PER PAST MEDICAL HX-ARTHRITIS,BP, VARICOSE VEINS, SINUS PROBLEMS, SLEEP APNEA-NO CPAP USED,GERD, BIPOLAR/MANIC DEPRESSION-PAST HOPSITALIZATION FOR SUICIDAL THOUGHTS IN 2006 & IN 2O08, HX OF FALLS(PAST FX TO SACRUM AND RT RIB), DX 6-23-16 MALIGNANT NEOPLASM UTERUS-PER ECF NO SX BUT HAS BEEN RECEIVING RADIATION TX-unk last tx per ecf nurse- receives chemo injection every 6 mos-unk last dose per ecf nurse.UTI'S-none recent History of Any Multi-Drug Resistant Organisms: None Reported Past Surgical History: Adenoidectomy, Section, Cholecystectomy, Heart Catheterization With Stent, Hysterectomy, Tonsillectomy, Tubal Ligation Additional Past Surgical History / Comment(s): PER PAST HX IN 2007 HEART CATH(5 STENTS),KAMRAN CARPAL TUNNEL,[facility] INJ(BACK)/RADIO FREQ FACET BLOCK/SACRAL X2. Past Anesthesia/Blood Transfusion Reactions: Unable to Obtain Date of Last Stent Placement:: UNK Past Psychological History: Bipolar, Depression Smoking Status: Never smoker Past Alcohol Use History: None Reported Past Drug Use History: None Reported - Past Family History Father Family Medical History: Unable to Obtain Mother Family Medical History: Unable to Obtain Medications and Allergies Home Medications Medication Instructions Recorded Confirmed Type Anastrozole [Arimidex] 1 mg PO DAILY 06/22/16 05/14/18 History Cholecalciferol [Vitamin D3] 4,000 unit PO HS 06/22/16 05/14/18 History DULoxetine HCL [Cymbalta] 60 mg PO DAILY 06/22/16 05/14/18 History Insulin Glargine [Lantus] 27 unit SQ DAILY 06/22/16 05/14/18 History Menthol [Biofreeze] 1 applic TOPICAL TID 06/22/16 05/14/18 History Potassium Chloride ER [K-Dur 10] 10 meq PO BID 06/22/16 05/14/18 History lamoTRIgine [LaMICtal] 150 mg PO Q12H 06/22/16 05/14/18 History Acetaminophen Tab [Tylenol] 650 mg PO Q4HR PRN #0 tab 06/25/16 05/14/18 Rx Amiodarone [Cordarone] 200 mg PO DAILY 07/26/17 05/14/18 History Apixaban [Eliquis] 5 mg PO BID 07/26/17 05/14/18 History Benztropine Mesylate 0.5 mg PO BID@0700,1600 07/26/17 05/14/18 History Bisacodyl [Dulcolax] 10 mg RECTAL DAILY PRN 07/26/17 05/14/18 History Gabapentin [Neurontin] 300 mg PO BID 07/26/17 05/14/18 History INSULIN LISPRO (HumaLOG) [HumaLOG] 7 units SQ AC-TID@07,12,07/26/17 05/14/18 History Magnesium Hydroxide [Milk of 30 ml PO HS PRN 07/26/17 05/14/18 History Magnesia] Magnesium Oxide [Mag-Ox] 400 mg PO HS 07/26/17 05/14/18 History Nitroglycerin Sl Tabs [Nitrostat] 0.4 mg SUBLINGUAL Q5M PRN 07/26/17 05/14/18 History Pravastatin Sodium [Pravachol] 20 mg PO HS@199907/26/17 05/14/18 History Denosumab [Prolia] 60 mg SQ Q180D 03/10/18 05/14/18 History Ranitidine HCl 150 mg PO BID@0700,1600 03/10/18 05/14/18 History Minerin Lotion 1 applicate TOPICAL BID 04/18/18 05/14/18 History Mylanta 30 ml PO Q6H PRN 04/18/18 05/14/18 History Lisinopril [Zestril] 10 mg PO DAILY 05/14/18 05/14/18 History Allergies Allergy/AdvReac Type Severity Reaction Status Date / Time lorazepam [From Ativan] Allergy Unknown Verified 05/14/18 07:17 nabumetone [From Relafen] Allergy Rash/Hives Verified 05/14/18 07:17 Sulfa (Sulfonamide Allergy Rash/Hives Verified 05/14/18 07:17 Antibiotics) Physical Exam Vitals: Vital Signs Temp Pulse Pulse Resp BP BP Pulse Ox 05/15/18 08:00 97.2 F L 95 104/65 95 05/15/18 03:38 120 H 160/97 05/14/18 23:00 98.0 F 114 H 16 101/57 94 L 05/14/18 21:26 77 106/52 05/14/18 20:42 72 05/14/18 20:40 98.0 F 72 82/44 96 05/14/18 19:32 76 05/14/18 19:26 76 05/14/18 19:00 98.2 F 75 20 102/58 99 05/14/18 17:51 98 05/14/18 16:00 89 23 120/93 05/14/18 12:09 86 05/14/18 12:00 73 22 98/64 100 05/14/18 11:55 74 Intake and Output 05/14/18 05/15/18 05/15/18 22:59 06:59 14:59 Intake Total 122.237 600 0 Output Total 300 Balance 122.237 300 0 Intake: Intake, IV Titration 122.237 600 Amount Heparin Sod,Pork in 0.45% 122.237 NaCl 25,000 unit In 0.45 % NaCl 1 500ml.bag @ 20 mls/hr IV .Q24H [facility] Rx#: [id number] Piperacillin-Tazobactam 3 100 .375 gm In Sodium Chloride 0.9% 100 ml @ 25 mls/hr IVPB Q8H [facility] Rx#: [id number] Vancomycin 2,000 mg In 500 Sodium Chloride 0.9% 500 ml 500 ml @ 167 mls/hr IVPB Q24H [facility] Rx#: [id number] Oral 0 Output: Urine 300 Other: Voiding Method Bedside Commode Bedside Commode Bedpan Bedpan Indwelling Catheter # Voids 0 Weight 111.13 kg - Constitutional General appearance: disheveled, mild distress, obese - EENT Eyes: anicteric sclerae - Neck Neck: no lymphadenopathy - Respiratory Respiratory: bilateral: CTA - Cardiovascular Rhythm: regular Heart sounds: normal: S1, S2 Abnormal Heart Sounds: no systolic murmur, no diastolic murmur, no rub, no S3 Gallop, no S4 Gallop, no click, no other leg Peripheral Edema: bilateral: None - Gastrointestinal General gastrointestinal: no absent bowel sounds, no decreased bowel sounds, no distended, no hepatomegaly, no hyperactive bowel sounds, normal bowel sounds, no organomegaly, no rigid, no scaphoid, soft, no splenomegaly, no umbilical hernia, no ventral hernia - Integumentary Integumentary: pale - Neurologic Unable to accurately assess - Musculoskeletal unable to accurately assess, pt is noted to be moving her extremities independently - Psychiatric Psychiatric: no A&O x's 3, no appropriate affect, no intact judgment & insight Results CBC & Chem 7: 05/15/18 05:08 05/15/18 05:08 Labs: Abnormal Lab Results - Last 24 Hours (Table) 05/14/18 05/14/18 05/14/18 Range/Units 10:19 18:07 20:50 APTT 35.1 H (22.0-30.0) sec Carbon Dioxide (22-30) mmol/L BUN (7-17) mg/dL Glucose (74-99) mg/dL POC Glucose (mg/dL) 170 H 69 L (75-99) mg/dL Plasma Lactic Acid Herminio (0.7-2.0) mmol/L Calcium (8.4-10.2) mg/dL Ur Specific [place] (1.001-1.035) Urine Protein (Negative) Urine Ketones (Negative) Urine Blood (Negative) Ur Leukocyte Esterase (Negative) Urine RBC (0-5) /hpf Urine WBC (0-5) /hpf Urine Bacteria (None) /hpf Urine Opiates Screen (NotDetected) 05/15/18 05/15/18 05/15/18 Range/Units 01:00 01:00 05:08 APTT (22.0-30.0) sec Carbon Dioxide 21 L (22-30) mmol/L BUN 22 H (7-17) mg/dL Glucose 144 H (74-99) mg/dL POC Glucose (mg/dL) (75-99) mg/dL Plasma Lactic Acid Herminio (0.7-2.0) mmol/L Calcium 7.8 L (8.4-10.2) mg/dL Ur Specific [place] 1.038 H (1.001-1.035) Urine Protein Trace H (Negative) Urine Ketones Trace H (Negative) Urine Blood Moderate H (Negative) Ur Leukocyte Esterase Large H (Negative) Urine RBC 21 H (0-5) /hpf Urine WBC 23 H (0-5) /hpf Urine Bacteria Rare H (None) /hpf Urine Opiates Screen Detected H (NotDetected) 05/15/18 05/15/18 05/15/18 Range/Units 05:08 06:17 09:27 APTT (22.0-30.0) sec Carbon Dioxide (22-30) mmol/L BUN (7-17) mg/dL Glucose (74-99) mg/dL POC Glucose (mg/dL) 165 H (75-99) mg/dL Plasma Lactic Acid Ehrminio 3.0 H* 0.6 L (0.7-2.0) mmol/L Calcium (8.4-10.2) mg/dL Ur Specific [place] (1.001-1.035) Urine Protein (Negative) Urine Ketones (Negative) Urine Blood (Negative) Ur Leukocyte Esterase (Negative) Urine RBC (0-5) /hpf Urine WBC (0-5) /hpf Urine Bacteria (None) /hpf Urine Opiates Screen (NotDetected) Microbiology - Last 24 Hours (Table) 05/13/18 22:45 Blood Culture - Preliminary Blood No Growth after 24 hours Chest x-ray: report reviewed CT Scan - head: report reviewed Venous US: report reviewed Assessment and Plan (1) Breast cancer Current Visit: Yes Status: Acute Priority: Medium Code(s): C50.919 - MALIGNANT NEOPLASM OF UNSP SITE OF UNSPECIFIED FEMALE BREAST SNOMED Code(s): 163483901 (2) Uterine cancer Current Visit: Yes Status: Acute Priority: Medium Code(s): C55 - MALIGNANT NEOPLASM OF UTERUS, PART UNSPECIFIED SNOMED Code(s): 391144390 Plan: From what can be derived from the chart from ECF and past note/visit/scan review (no pathology is available in this system). She is a ECF resident which does limit treatment options, at least chemotherapy options. She has been receiving palliative radiation per notes, will check with Rad/Onc to see if that was being done locally. Pt is on arimidex which suggests hormone receptor positive malignancy. This hormonal therapy is not associate with any specific toxicities and is usually well tolerated. It has the added benefit that it can be given in ECF. Pt can have decent control of malignancy with this treatment. Will contact Dr. Hernandez's office to try and get additional info re: diagnosis and treatment plan. For now ok to continue arimidex. For pt presenting c/o defer to IM and Cardiology.
[2018-05-15] MEDS: APIXABAN 5 MG TAB PO SCH ×2 (13:00→20:11)
[2018-05-15] MEDS: ANASTROZOLE 1 MG TAB PO SCH (13:00)
[2018-05-15] MEDS: DULoxetine HCL 60 MG CAPSULE.DR PO SCH (13:00)
[2018-05-15] MEDS: INSULIN DETEMIR 100 UNIT/ML 10 ML VIAL SQ SCH (13:00)
[2018-05-15] MEDS: AZITHROMYCIN 500 MG TAB PO SCH (13:00)
[2018-05-15] MEDS: AMIODARONE 200 MG TAB PO SCH (13:00)
[2018-05-15] MEDS: lamoTRIgine 100 MG TAB PO SCH ×2 (13:01→20:11)
[2018-05-15 16:21] LABS: Glucose,Whole Blood 132 mg/dL (75-99)
[2018-05-15 17:04] LABS: Glucose,Whole Blood 146 mg/dL (75-99)
[2018-05-15] MEDS: PRAVASTATIN SODIUM 20 MG TAB PO SCH (19:15)
[2018-05-15 19:58] LABS: Hemoglobin A1C 6.4 % (4.0-6.0)
[2018-05-15] MEDS: MAGNESIUM OXIDE 400 MG TAB PO SCH (20:11)
[2018-05-15 20:43] LABS: Glucose,Whole Blood 118 mg/dL (75-99)
[2018-05-15] MEDS: VANCOMYCIN 2,000 MG in SODIUM CHLORIDE 0.9% 500 ML 500 ML IVPB SCH (20:54)
--- NOTE | 2018-05-15 20:58 | P.CNNES ---
History of Present Illness Consult date: 05/15/18 History of Present Illness: The patient is a 67-year-old right-handed white female who resides in a senior living and [facility]. She states she is not sure why she came to the hospital. According to the record the patient presented with chest pain with radiation to the left arm. She has a history of atrial fibrillation. Apparently the chest pain started 2hours prior to presentation to the hospital. She described it then is a constant chest pressure sensation. was admitted to the hospital with chest pain and elevated BNP. Her ALLERGIES requested to see the patient regarding altered mental status. During her hospital stay the patient became more confused. Currently she is awake alert and able to answer questions. She does have some underlying cognitive deficit. She denies any headache or chest pain currently. She denies any new weakness or visual changes. The patient had a CT of the brain yesterday which showed cerebral atrophy and no acute abnormality. Review of Systems ROS unobtainable: due to mental status Past Medical History Past Medical History: Atrial Fibrillation, Coronary Artery Disease (CAD), Cancer , Chest Pain / Angina, Diabetes Mellitus, GERD/Reflux, Hypertension, Osteoarthritis (OA), Sleep Apnea/CPAP/BIPAP Additional Past Medical History / Comment(s): PER PAST MEDICAL HX-ARTHRITIS,BP, VARICOSE VEINS, SINUS PROBLEMS, SLEEP APNEA-NO CPAP USED,GERD, BIPOLAR/MANIC DEPRESSION-PAST HOPSITALIZATION FOR SUICIDAL THOUGHTS IN 2006 & IN 2O08, HX OF FALLS(PAST FX TO SACRUM AND RT RIB), DX 6-23-16 MALIGNANT NEOPLASM UTERUS-PER ECF NO SX BUT HAS BEEN RECEIVING RADIATION TX-unk last tx per ecf nurse- receives chemo injection every 6 mos-unk last dose per e[facility] nurse.UTI'S-none recent History of Any Multi-Drug Resistant Organisms: None Reported Past Surgical History: Adenoidectomy, Section, Cholecystectomy, Heart Catheterization With Stent, Hysterectomy, Tonsillectomy, Tubal Ligation Additional Past Surgical History / Comment(s): PER PAST HX IN 2007 HEART CATH(5 STENTS),KAMRAN CARPAL TUNNEL,PAIN CLINIC INJ(BACK)/RADIO FREQ FACET BLOCK/SACRAL X2. Past Anesthesia/Blood Transfusion Reactions: Unable to Obtain Date of Last Stent Placement:: UNK Past Psychological History: Bipolar, Depression Smoking Status: Never smoker Past Alcohol Use History: None Reported Past Drug Use History: None Reported - Past Family History Father Family Medical History: Unable to Obtain Mother Family Medical History: Unable to Obtain Medications and Allergies Home Medications Medication Instructions Recorded Confirmed Type Anastrozole [Arimidex] 1 mg PO DAILY 06/22/16 05/14/18 History Cholecalciferol [Vitamin D3] 4,000 unit PO HS 06/22/16 05/14/18 History DULoxetine HCL [Cymbalta] 60 mg PO DAILY 06/22/16 05/14/18 History Insulin Glargine [Lantus] 27 unit SQ DAILY 06/22/16 05/14/18 History Menthol [Biofreeze] 1 applic TOPICAL TID 06/22/16 05/14/18 History Potassium Chloride ER [K-Dur 10] 10 meq PO BID 06/22/16 05/14/18 History lamoTRIgine [LaMICtal] 150 mg PO Q12H 06/22/16 05/14/18 History Acetaminophen Tab [Tylenol] 650 mg PO Q4HR PRN #0 tab 06/25/16 05/14/18 Rx Amiodarone [Cordarone] 200 mg PO DAILY 07/26/17 05/14/18 History Apixaban [Eliquis] 5 mg PO BID 07/26/17 05/14/18 History Benztropine Mesylate 0.5 mg PO BID@0700,1600 07/26/17 05/14/18 History Bisacodyl [Dulcolax] 10 mg RECTAL DAILY PRN 07/26/17 05/14/18 History Gabapentin [Neurontin] 300 mg PO BID 07/26/17 05/14/18 History INSULIN LISPRO (HumaLOG) [HumaLOG] 7 units SQ AC-TID@07,,07/26/17 05/14/18 History Magnesium Hydroxide [Milk of 30 ml PO HS PRN 07/26/17 05/14/18 History Magnesia] Magnesium Oxide [Mag-Ox] 400 mg PO HS 07/26/17 05/14/18 History Nitroglycerin Sl Tabs [Nitrostat] 0.4 mg SUBLINGUAL Q5M PRN 07/26/17 05/14/18 History Pravastatin Sodium [Pravachol] 20 mg PO HS@199907/26/17 05/14/18 History Denosumab [Prolia] 60 mg SQ Q180D 03/10/18 05/14/18 History Ranitidine HCl 150 mg PO BID@0700,1600 03/10/18 05/14/18 History Minerin Lotion 1 applicate TOPICAL BID 04/18/18 05/14/18 History Mylanta 30 ml PO Q6H PRN 04/18/18 05/14/18 History Lisinopril [Zestril] 10 mg PO DAILY 05/14/18 05/14/18 History Allergies Allergy/AdvReac Type Severity Reaction Status Date / Time lorazepam [From Ativan] Allergy Unknown Verified 05/14/18 07:17 nabumetone [From Relafen] Allergy Rash/Hives Verified 05/14/18 07:17 Sulfa (Sulfonamide Allergy Rash/Hives Verified 05/14/18 07:17 Antibiotics) Physical Examination - Vital Signs Vital Signs: Vital Signs Temp Pulse Resp BP Pulse Ox 05/15/18 12:00 76 106/57 94 L 05/15/18 08:00 97.2 F L 95 104/65 95 05/15/18 03:38 120 H 160/97 05/14/18 23:00 98.0 F 114 H 16 101/57 94 L 05/14/18 21:26 77 106/52 Intake and Output 05/15/18 05/15/18 05/15/18 06:59 14:59 22:59 Intake Total 600 700 Output Total 300 Balance 300 700 Intake: Intake, IV Titration 600 700 Amount Piperacillin-Tazobactam 3 100 .375 gm In Sodium Chloride 0.9% 100 ml @ 25 mls/hr IVPB Q8H KARO Rx#: [id number] Sodium Chloride 0.9% 1, 700 000 ml @ 100 mls/hr IV . Q10H KARO Rx#:[id number] Vancomycin 2,000 mg In 500 Sodium Chloride 0.9% 500 ml 500 ml @ 167 mls/hr IVPB Q24H KARO Rx#: [id number] Oral 0 Output: Urine 300 Other: Voiding Method Bedside Commode Indwelling Catheter Indwelling Catheter Bedpan Indwelling Catheter # Voids 0 - Constitutional General appearance: obese - EENT EENT: PERRL - Respiratory Respiratory: lungs clear - Cardiovascular Cardiovascular: regular rate, normal S1, normal S2 - Neurologic Neurologic examination: Mental status: She was awake alert oriented to [facility] year 2017 month was April able to add but had difficulty with subtraction mild cognitive impairment able to recall what 2 out of 3 objects in 1 minute able to name the current president but the one before that this president she thought was Borsch. Next holiday she said was Thanksgiving. Next Cranial nerve examination: Pupils were 2 mm equal and reactive visual smith were full extraocular movements intact there was no facial asymmetry Motor examination: She moved all 4 extremities without any focal weakness Sensory examination: Intact to light touch Deep tendon reflexes: 1+ and symmetric Gait: Not tested Results - Laboratory Findings CBC and BMP: 05/15/18 05:08 05/15/18 05:08 Abnormal Lab Findings: Abnormal Labs 05/13/18 05/13/18 05/13/18 22:45 22:45 22:45 Hgb 11.2 L APTT D-Dimer 3.53 H Carbon Dioxide BUN 26 H Glucose 100 H POC Glucose (mg/dL) Hemoglobin A1c Plasma Lactic Acid Herminio Calcium Magnesium 2.5 H Total Protein 6.1 L Albumin 3.3 L Ur Specific [place] Urine Protein Urine Ketones Urine Blood Ur Leukocyte Esterase Urine RBC Urine WBC Urine Bacteria Urine Opiates Screen 05/14/18 05/14/18 05/14/18 10:19 18:07 20:50 Hgb APTT 35.1 H D-Dimer Carbon Dioxide BUN Glucose POC Glucose (mg/dL) 170 H 69 L Hemoglobin A1c Plasma Lactic Acid Herminio Calcium Magnesium Total Protein Albumin Ur Specific [place] Urine Protein Urine Ketones Urine Blood Ur Leukocyte Esterase Urine RBC Urine WBC Urine Bacteria Urine Opiates Screen 05/15/18 05/15/18 05/15/18 01:00 01:00 05:08 Hgb APTT D-Dimer Carbon Dioxide 21 L BUN 22 H Glucose 144 H POC Glucose (mg/dL) Hemoglobin A1c Plasma Lactic Acid Herminio Calcium 7.8 L Magnesium Total Protein Albumin Ur Specific [place] 1.038 H Urine Protein Trace H Urine Ketones Trace H Urine Blood Moderate H Ur Leukocyte Esterase Large H Urine RBC 21 H Urine WBC 23 H Urine Bacteria Rare H Urine Opiates Screen Detected H 05/15/18 05/15/18 05/15/18 05:08 06:17 09:27 Hgb APTT D-Dimer Carbon Dioxide BUN Glucose POC Glucose (mg/dL) 165 H Hemoglobin A1c 6.4 H Plasma Lactic Acid Herminio 3.0 H* Calcium Magnesium Total Protein Albumin Ur Specific [place] Urine Protein Urine Ketones Urine Blood Ur Leukocyte Esterase Urine RBC Urine WBC Urine Bacteria Urine Opiates Screen 05/15/18 05/15/18 05/15/18 09:27 11:26 16:17 Hgb APTT D-Dimer Carbon Dioxide BUN Glucose POC Glucose (mg/dL) 118 H 132 H Hemoglobin A1c Plasma Lactic Acid Herminio 0.6 L Calcium Magnesium Total Protein Albumin Ur Specific [place] Urine Protein Urine Ketones Urine Blood Ur Leukocyte Esterase Urine RBC Urine WBC Urine Bacteria Urine Opiates Screen 05/15/18 17:03 Hgb APTT D-Dimer Carbon Dioxide BUN Glucose POC Glucose (mg/dL) 146 H Hemoglobin A1c Plasma Lactic Acid Herminio Calcium Magnesium Total Protein Albumin Ur Specific [place] Urine Protein Urine Ketones Urine Blood Ur Leukocyte Esterase Urine RBC Urine WBC Urine Bacteria Urine Opiates Screen Assessment and Plan (1) Metabolic encephalopathy Current Visit: Yes Status: Acute SNOMED Code(s): 43500639 Plan: The patient is a 67-year-old woman who presented to the hospital with chest pain. She developed altered mental status. She has been treated with antibiotics for UTI. Patient has likely had a moderate metabolic encephalopathy secondary to underlying sepsis. The patient seems to have improved somewhat according to the record. She is still somewhat confused with underlying mild to moderate cognitive impairment. Recommend EEG.
[2018-05-15] MEDS ORDERED: QUEtiapine 25 MG TAB PO SCH (21:00)
[2018-05-16] MEDS: SODIUM CHLORIDE 0.9% 1,000 ML IV SCH ×2 (02:38→13:17)
[2018-05-16] MEDS: PIPERACILLIN-TAZOBACTAM 3.375 GM in SODIUM CHLORIDE 0.9% 100 ML IVPB SCH ×2 (02:38→12:09)
[2018-05-16] MEDS: IPRATROPIUM-ALBUTEROL 3 ML NEB INHALATION SCH ×3 (07:35→15:27)
[2018-05-16 07:45] LABS: Glucose,Whole Blood 100 mg/dL (75-99)
[2018-05-16 09:02] LABS: Anion Gap 7 mmol/L; Blood Urea Nitrogen 11 mg/dL (7-17); Calcium 7.2 mg/dL (8.4-10.2); Carbon Dioxide 21 mmol/L (22-30); Chloride 113 mmol/L (98-107); Glucose 90 mg/dL (74-99); Potassium 3.8 mmol/L (3.5-5.1); Sodium 141 mmol/L (137-145)
[2018-05-16] MEDS: DULoxetine HCL 60 MG CAPSULE.DR PO SCH (10:13)
[2018-05-16] MEDS: lamoTRIgine 100 MG TAB PO SCH (10:14)
[2018-05-16] MEDS: AMIODARONE 200 MG TAB PO SCH (10:15)
[2018-05-16] MEDS: AZITHROMYCIN 500 MG TAB PO SCH (10:15)
[2018-05-16] MEDS: APIXABAN 5 MG TAB PO SCH (10:15)
[2018-05-16] MEDS: ANASTROZOLE 1 MG TAB PO SCH (10:16)
[2018-05-16] MEDS: FAMOTIDINE 20 MG TAB PO SCH (10:16)
[2018-05-16] MEDS: INSULIN DETEMIR 100 UNIT/ML 10 ML VIAL SQ SCH (10:19)
[2018-05-16] MEDS: INSULIN ASPART 100 UNIT/ML 1 ML 10 ML VIAL SQ SCH ×4 (10:23→13:15)
[2018-05-16] MEDS ORDERED: VANCOMYCIN 2,000 MG in SODIUM CHLORIDE 0.9% 500 ML 500 ML IVPB SCH (12:00)
[2018-05-16 12:07] LABS: Glucose,Whole Blood 128 mg/dL (75-99)
[2018-05-16 13:09] VITALS: BP 110/62; PULSE 68; RESP 20; TEMP 98
--- NOTE | 2018-05-16 14:43 | P.DS ---
Providers Date of admission: 05/14/18 17:51 Attending physician: Andria Snow Consults: 05/14/18 01:52 Consult Physician Routine Consulting Provider: Karin Cunha Consult Reason/Comments: chest pain Do you want consulting provider notified?: Yes 05/14/18 16:51 Consult Physician Routine Consulting Provider: Marcos Sellers Consult Reason/Comments: Uterine cancer Do you want consulting provider notified?: Yes 05/14/18 17:05 Consult Physician Routine Consulting Provider: Jake De La Rosa Consult Reason/Comments: mental status changes Do you want consulting provider notified?: Yes Primary care physician: [facility] Course: 67-year-old female admitted for chest pressure, was a valid by cardiology. Patient actually became severely encephalopathic all the workup is so far negative. There is no clear-cut evidence of sepsis but patient is on transfer from antibiotics urine is abnormal patient does have urinary retention. Her baseline is not clear at this time back up unrevealing be discharged today patient does have dementia and her baseline orientation is around 1-2. Patient has multiple episodes of agitation patient was given Haldol and Geodon for agitation episodes will start her on Seroquel. Neurology and oncology will evaluate the patient. Patient does have history of uterine cancer, ammonia and TSH are pending patient is severely intravascularly volume depleted with the lactic is doses and patient was given bolus of IV fluids and patient is presently on IV fluids. 05/16/2018 Patient is looking much better have encephalopathy completely resolved patient may have toxic encephalopathy from medications and morphine she received as a part of chest pain protocol. Although I cannot completely exclude atypical pneumonia or UTI urine culture was drawn after antibiotics culture is negative urine was abnormal. To cover these 2 infections I'll give her 3 days of Levaquin patient appears to have some moderate or mild cognitive impairment patient is alert and oriented 3 today can use Seroquel and as-needed basis if she gets agitated at the other facility avoid opiates men's residence barbiturates. Levaquin cause confusion as well. Regarding chest pain: Evaluated the patient cleared for discharge PHYSICAL EXAMINATION: GENERAL: The patient is alert and oriented x3, not in any acute distress. Well developed, well nourished. HEENT: Pupils are round and equally reacting to light. EOMI. No scleral icterus. No conjunctival pallor. Normocephalic, atraumatic. No pharyngeal erythema. No thyromegaly. CARDIOVASCULAR: S1 and S2 present. No murmurs, rubs, or gallops. PULMONARY: Chest is clear to auscultation, no wheezing or crackles. ABDOMEN: Soft, nontender, nondistended, normoactive bowel sounds. No palpable organomegaly. MUSCULOSKELETAL: No joint swelling or deformity. EXTREMITIES: No cyanosis, clubbing, or pedal edema. NEUROLOGICAL: Gross neurological examination did not reveal any focal deficits. SKIN: No rashes. Assessment and Plan Plan: -Altered mental status, encephalopathy: toxic encephalopathy, from medications as mentioned above -Possible mild to moderate cognitive impairment -Atrial fibrillation rate controlled continue with anticoagulation - Type-2 diabetes: Continue sliding scale insulin -Chest pain: Rule out acute: Syndromes -Cervical cancer with metastasis follow-up with her oncologist as an outpatient -bipolar depression -Coronary artery disease Hypertension reflux disease -Sleep apnea Patient Condition at Discharge: Fair Plan - Discharge Summary Discharge Rx Participant: No New Discharge Prescriptions: New Ipratropium-Albuterol Nebulize [Duoneb 0.5 mg-3 mg/3 ml Soln] 3 ml INHALATION RT-QID ampul.neb QUEtiapine [SEROquel] 25 mg PO HS PRN tab PRN Reason: Agitation Levofloxacin [Levaquin] 500 mg PO DAILY 3 Days #3 tab Continue Cholecalciferol [Vitamin D3] 4,000 unit PO HS Potassium Chloride ER [K-Dur 10] 10 meq PO BID lamoTRIgine [LaMICtal] 150 mg PO Q12H Insulin Glargine [Lantus] 27 unit SQ DAILY DULoxetine HCL [Cymbalta] 60 mg PO DAILY Menthol [Biofreeze] 1 applic TOPICAL TID Anastrozole [Arimidex] 1 mg PO DAILY Acetaminophen Tab [Tylenol] 650 mg PO Q4HR PRN #0 tab PRN Reason: Mild Pain Amiodarone [Cordarone] 200 mg PO DAILY Apixaban [Eliquis] 5 mg PO BID Bisacodyl [Dulcolax] 10 mg RECTAL DAILY PRN PRN Reason: Constipation Gabapentin [Neurontin] 300 mg PO BID INSULIN LISPRO (HumaLOG) [humaLOG] 7 units SQ AC-TID@07,12,17 Magnesium Hydroxide [Milk of Magnesia] 30 ml PO HS PRN PRN Reason: Constipation Magnesium Oxide [Mag-Ox] 400 mg PO HS Nitroglycerin Sl Tabs [Nitrostat] 0.4 mg SUBLINGUAL Q5M PRN PRN Reason: Chest Pain Pravastatin Sodium [Pravachol] 20 mg PO HS@2000 Denosumab [Prolia] 60 mg SQ Q180D Ranitidine HCl 150 mg PO BID@0700,1600 Minerin Lotion 1 applicate TOPICAL BID Mylanta 30 ml PO Q6H PRN PRN Reason: Indigestion Discontinued Benztropine Mesylate 0.5 mg PO BID@0700,1600 Lisinopril [Zestril] 10 mg PO DAILY Discharge Medication List Anastrozole [Arimidex] 1 mg PO DAILY 06/22/16 [History] Cholecalciferol [Vitamin D3] 4,000 unit PO HS 06/22/16 [History] DULoxetine HCL [Cymbalta] 60 mg PO DAILY 06/22/16 [History] Insulin Glargine [Lantus] 27 unit SQ DAILY 06/22/16 [History] Menthol [Biofreeze] 1 applic TOPICAL TID 06/22/16 [History] Potassium Chloride ER [K-Dur 10] 10 meq PO BID 06/22/16 [History] lamoTRIgine [LaMICtal] 150 mg PO Q12H 06/22/16 [History] Acetaminophen Tab [Tylenol] 650 mg PO Q4HR PRN #0 tab 06/25/16 [Rx] Amiodarone [Cordarone] 200 mg PO DAILY 07/26/17 [History] Apixaban [Eliquis] 5 mg PO BID 07/26/17 [History] Bisacodyl [Dulcolax] 10 mg RECTAL DAILY PRN 07/26/17 [History] Gabapentin [Neurontin] 300 mg PO BID 07/26/17 [History] INSULIN LISPRO (HumaLOG) [humaLOG] 7 units SQ AC-TID@07,12,17 07/26/17 [History] Magnesium Hydroxide [Milk of Magnesia] 30 ml PO HS PRN 07/26/17 [History] Magnesium Oxide [Mag-Ox] 400 mg PO HS 07/26/17 [History] Nitroglycerin Sl Tabs [Nitrostat] 0.4 mg SUBLINGUAL Q5M PRN 07/26/17 [History] Pravastatin Sodium [Pravachol] 20 mg PO HS@199907/26/17 [History] Denosumab [Prolia] 60 mg SQ Q180D 03/10/18 [History] Ranitidine HCl 150 mg PO BID@0700,1600 03/10/18 [History] Minerin Lotion 1 applicate TOPICAL BID 04/18/18 [History] Mylanta 30 ml PO Q6H PRN 04/18/18 [History] Ipratropium-Albuterol Nebulize [Duoneb 0.5 mg-3 mg/3 ml Soln] 3 ml INHALATION RT -QID ampul.neb 05/16/18 [Rx] Levofloxacin [Levaquin] 500 mg PO DAILY 3 Days #3 tab 05/16/18 [Rx] QUEtiapine [SEROquel] 25 mg PO HS PRN tab 05/16/18 [Rx] Follow up Appointment(s)/Referral(s): Kael Jon MD [Primary Care Provider] - 1-2 days [facility], [NON-STAFF] - As Needed Patient Instructions/Handouts: Chest Pain (ED) Activity/Diet/Wound Care/Special Instructions: [facility] Discharge Disposition: TRANSFER TO SNF/ECF
[2018-05-18] MEDS ORDERED: VANCOMYCIN TROUGH DUE 1 EACH MISC MISCELLANE ONE (11:00)
== END 2018-05-16 17:20 | DRG 313 ==
LOC: EC 22:18 → 1SOBS 05-14 01:51 → OBSVTOIN 05-14 17:51 → 3SCARD 05-14 18:06 → 3NMEDONC 05-15 16:28
PROVIDERS: ADMIT Hospitalist; ATTEND Hospitalist
DX: R07.89 Other chest pain (principal); J18.9 Pneumonia, unspecified organism; G92 Toxic encephalopathy; N39.0 Urinary tract infection, site not specified; C78.6 Secondary malignant neoplasm of retroperitoneum and peritoneum; E87.2 Acidosis; E11.9 Type 2 diabetes mellitus without complications; K21.9 Gastro-esophageal reflux disease without esophagitis; I25.10 Atherosclerotic heart disease of native coronary artery without angina pectoris; I48.0 Paroxysmal atrial fibrillation; I45.10 Unspecified right bundle-branch block; G47.30 Sleep apnea, unspecified; I11.9 Hypertensive heart disease without heart failure; R19.7 Diarrhea, unspecified; C53.9 Malignant neoplasm of cervix uteri, unspecified; E78.5 Hyperlipidemia, unspecified; F03.90 Unspecified dementia, unspecified severity, without behavioral disturbance, psychotic disturbance, mood disturbance, and anxiety; K76.9 Liver disease, unspecified; D73.89 Other diseases of spleen; M85.80 Other specified disorders of bone density and structure, unspecified site; C50.919 Malignant neoplasm of unspecified site of unspecified female breast; R33.9 Retention of urine, unspecified; F31.9 Bipolar disorder, unspecified; T40.605A Adverse effect of unspecified narcotics, initial encounter; T36.8X5A Adverse effect of other systemic antibiotics, initial encounter; Z79.01 Long term (current) use of anticoagulants; Z90.49 Acquired absence of other specified parts of digestive tract; Z95.5 Presence of coronary angioplasty implant and graft; Z79.4 Long term (current) use of insulin; Z90.710 Acquired absence of both cervix and uterus; Z98.51 Tubal ligation status; Z79.899 Other long term (current) drug therapy; Z92.21 Personal history of antineoplastic chemotherapy; Z92.3 Personal history of irradiation; Z87.440 Personal history of urinary (tract) infections; Z88.2 Allergy status to sulfonamides; Z88.8 Allergy status to other drugs, medicaments and biological substances; Z90.722 Acquired absence of ovaries, bilateral; Z85.43 Personal history of malignant neoplasm of ovary; Z79.811 Long term (current) use of aromatase inhibitors; Z91.81 History of falling
CPT/HCPCS: 36415; 51701; 70450; 71046; 71275; 80048; 80053; 80306; 81001; 83036; 83605; 83735; 83880; 84484; 85025; 85027; 85379; 85610; 85730; 87040; 87086; 93005; 93306; 94640; 96365; 96366; 96367; 96368; 96375; 96376; 99285

== ENCOUNTER 2018-08-08 23:00 | Inpatient (IN) | payer MEDICARE, BC, OTHER ==
[2018-08-08] MEDS ORDERED: NITROGLYCERIN OINT 1 INCH/GM PACKET TOPICAL STA (23:34)
--- NOTE | 2018-08-08 23:44 | ED ---
General Adult HPI - General Chief complaint: Chest Pain Stated complaint: Chest Pain Time Seen by Provider: 08/08/18 23:06 Source: patient, EMS, RN notes reviewed, old records reviewed Mode of arrival: ambulatory Limitations: no limitations - History of Present Illness Initial comments: Chief complaint history of present illness this is a 68-year-old female brought emergency room by EMS from a nursing facility.. The nurses report that the patient started complaining of chest pain. She was given sublingual nitro which brought the pain down to an 8. EMS picked the patient up and there is some suspicion of a possible acute ST elevation. Upon review of the EKG once the patient arrived emergency room showed A. fib with RVR and right bundle branch block. Patient has had A. fib in the past. She reportedly has had 5 stents placed. - Related Data Home Medications Medication Instructions Recorded Confirmed Anastrozole [Arimidex] 1 mg PO DAILY 06/22/16 08/08/18 Cholecalciferol [Vitamin D3] 4,000 unit PO HS 06/22/16 08/08/18 DULoxetine HCL [Cymbalta] 60 mg PO DAILY 06/22/16 08/08/18 Insulin Glargine [Lantus] 20 unit SQ DAILY 06/22/16 08/08/18 Potassium Chloride ER [K-Dur 10] 10 meq PO BID 06/22/16 08/08/18 lamoTRIgine [LaMICtal] 150 mg PO Q12H 06/22/16 08/08/18 Amiodarone [Cordarone] 200 mg PO DAILY 07/26/17 08/08/18 Apixaban [Eliquis] 5 mg PO BID 07/26/17 08/08/18 Bisacodyl [Dulcolax] 10 mg RECTAL DAILY PRN 07/26/17 08/08/18 Gabapentin [Neurontin] 300 mg PO BID 07/26/17 08/08/18 INSULIN LISPRO (HumaLOG) [humaLOG] 3 units SQ AC-TID@07,12,07/26/17 08/08/18 Magnesium Hydroxide [Milk of 30 ml PO HS PRN 07/26/17 08/08/18 Magnesia] Magnesium Oxide [Mag-Ox] 400 mg PO HS 07/26/17 08/08/18 Nitroglycerin Sl Tabs [Nitrostat] 0.4 mg SUBLINGUAL Q5M PRN 07/26/17 08/08/18 Pravastatin Sodium [Pravachol] 20 mg PO HS@199907/26/17 08/08/18 Lisinopril [Zestril] 5 mg PO DAILY 08/08/18 08/08/18 Omeprazole 20 mg PO DAILY 08/08/18 08/08/18 Previous Rx's Medication Instructions Recorded Acetaminophen Tab [Tylenol] 650 mg PO Q4HR PRN #0 tab 06/25/16 Allergies Allergy/AdvReac Type Severity Reaction Status Date / Time lorazepam [From Ativan] Allergy Unknown Verified 08/08/18 23:25 nabumetone [From Relafen] Allergy Rash/Hives Verified 08/08/18 23:25 Sulfa (Sulfonamide Allergy Rash/Hives Verified 08/08/18 23:25 Antibiotics) Review of Systems ROS Statement: Those systems with pertinent positive or pertinent negative responses have been documented in the HPI. Review of systems. Patient denies headache or visual acuity changes at this time complains left-sided chest pain that goes into her back and left arm area. Denies nausea vomiting or sweats. Patient's past medical problems as obtained from her previous chart includes A. fib, coronary artery disease, left breast cancer, angina, diabetes mellitus, GERD, hypertension, osteoarthritis, sleep apnea on CPAP. Patient's surgeries include adenoidectomy tonsillectomy and cholecystectomy heart catheterization with reported stents, hysterectomy and tubal ligation. Family history noncontributory. ALLERGIES include lorazepam nabumetone and sulfa. Nonsmoker nondrinker. ROS Other: All systems not noted in ROS Statement are negative. Past Medical History Past Medical History: Atrial Fibrillation, Coronary Artery Disease (CAD), Cancer , Chest Pain / Angina, Diabetes Mellitus, GERD/Reflux, Hypertension, Osteoarthritis (OA), Sleep Apnea/CPAP/BIPAP Additional Past Medical History / Comment(s): PER PAST MEDICAL HX-ARTHRITIS,BP, VARICOSE VEINS, SINUS PROBLEMS, SLEEP APNEA-NO CPAP USED,GERD, BIPOLAR/MANIC DEPRESSION-PAST HOPSITALIZATION FOR SUICIDAL THOUGHTS IN 2006 & IN 2O08, HX OF FALLS(PAST FX TO SACRUM AND RT RIB), DX 12-04-15 MALIGNANT NEOPLASM UTERUS-PER ECF NO SX BUT HAS BEEN RECEIVING RADIATION TX-unk last tx per [facility] nurse- receives chemo injection every 6 mos-unk last dose per [facility] nurse.UTI'S-none recent History of Any Multi-Drug Resistant Organisms: None Reported Past Surgical History: Adenoidectomy, Section, Cholecystectomy, Heart Catheterization With Stent, Hysterectomy, Tonsillectomy, Tubal Ligation Additional Past Surgical History / Comment(s): PER PAST HX IN 2007 HEART CATH(5 STENTS),KAMRAN CARPAL TUNNEL,PAIN CLINIC INJ(BACK)/RADIO FREQ FACET BLOCK/SACRAL X2. Past Anesthesia/Blood Transfusion Reactions: Unable to Obtain Date of Last Stent Placement:: UNK Past Psychological History: Bipolar, Depression Smoking Status: Never smoker Past Alcohol Use History: None Reported Past Drug Use History: None Reported - Past Family History Father Family Medical History: Unable to Obtain Mother Family Medical History: Unable to Obtain General Exam - General Exam Comments Initial Comments: General: The patient is awake and alert, patient is here because of left-sided chest pain. Nitro given at the [facility] did help a little. She also received morphine en route. Patient presents emergency room with temperature 99.7 pulse 123, respiratory rate 18 pulse ox 95% on 2 L initial blood pressure 93/69. . Eye: Patient keeps her left eye closed. Ears, nose, mouth and throat: There are moist mucous membranes and no oral lesions. Neck: The neck is supple, there is no tenderness. Cardiovascular: Irregular rate and rhythm. History of A. fib. EKG shows A. fib. No heart murmur appreciated. Respiratory: Crepitant rales on the right lung smith. Decreased breath sounds in the entire left lung field Gastrointestinal: Soft, non-distended, non-tender abdomen without masses or organomegaly noted. There is no rebound or guarding present. No CVA tenderness. Bowel sounds are unremarkable. Back: Complains of left back pain, no rash appreciated. Decreased to no breath sounds. Musculoskeletal: Denies lower extremity pain Neurological: Moving all limbs. Limitations: no limitations Course Vital Signs 08/08/18 08/08/18 08/08/18 23:02 23:23 23:41 Temperature 99.7 F H Pulse Rate 129 H 123 H 124 H Respiratory 18 18 18 Rate Blood Pressure 103/67 93/69 95/74 O2 Sat by Pulse 88 L 95 94 L Oximetry 08/09/18 08/09/18 08/09/18 00:01 00:16 00:29 Temperature Pulse Rate 118 H 122 H 107 H Respiratory 18 19 Rate Blood Pressure 88/69 96/85 103/81 O2 Sat by Pulse 97 Oximetry 08/09/18 00:37 Temperature Pulse Rate 100 Respiratory 19 Rate Blood Pressure 104/74 O2 Sat by Pulse 100 Oximetry EKG Findings - EKG Comments: EKG Findings:: EKG was done and reviewed at 2304. Showing A. fib with RVR rate 125. A right bundle branch block. Evidence of previous septal infarct age undetermined. QRS duration 156 QT 346 QTc 499. This EKG was compared to one done on 05/14/2018 which showed sinus rhythm with right bundle branch block. Dr. Swan Medical Decision Making - Medical Decision Making Medical decision making; patient's EKG showed evidence of A. fib with RVR.. The patient is complaining of left-sided chest pain and shortness of breath. EKG showed A. fib with RVR. I sent today's EKG plus EKG dated 05/14/2018 the on-call water pipe installer Dr. Chisholm. He confirms A. fib with RVR. The patient will be given IV Lopressor, Nitropaste and heparin. We did discuss the fact the patient is currently being worked up for vaginal bleeding. Patient had been taking Eliquis but it was discontinued because of the vaginal bleeding. White count is 9 hemoglobin 11 hematocrit 37 with a potassium 5.5. BUN 18 creatinine 0.91 with a GFR of 64. Troponin less than 0.012 with a blood sugar of 150 BNP of 912. INR 0.9. Chest x-ray was done and reviewed radiologist the radiologist's impression is left-sided pleural effusion with associated atelectasis versus pneumonia in the left lung. Right basilar atelectasis. Stable mild enlargement of the cardiomediastinal silhouette. Degenerative changes of the kernel compared to her joints. Upper abdomen is normal. Impression; left-sided pleural effusion with associated atelectasis versus pneumonia in the left lung. Right basilar atelectasis. As read by Dr. Reno As noted above the suggestion was made by the water pipe installer that if the hemoglobin hematocrit was adequate then heparin can be started until serial troponins have been collected. The patient received 2.5 mg of Lopressor extremely slowly over 20 minutes. This is after having received a 250ml bolus of normal saline. Blood pressure systolic over 100. Heart rate dropped to 99. Patient alert, readily responsive to questions. The patient will be admitted to Dr. Snow with consultation from Dr. Chisholm. - Lab Data Result diagrams: 08/08/18 23:05 08/08/18 23:05 Lab Results 08/08/18 08/08/18 08/08/18 Range/Units 23:05 23:05 23:05 WBC 9.4 (3.8-10.6) k/uL RBC 4.12 (3.80-5.40) m/uL Hgb 11.7 (11.4-16.0) gm/dL Hct 37.3 (34.0-46.0) % MCV 90.6 (80.0-100.0) fL MCH 28.4 (25.0-35.0) pg MCHC 31.4 (31.0-37.0) g/dL RDW 14.8 (11.5-15.5) % Plt Count 368 (150-450) k/uL Neutrophils % 76 % Lymphocytes % 11 % Monocytes % 8 % Eosinophils % 1 % Basophils % 0 % Neutrophils # 7.2 (1.3-7.7) k/uL Lymphocytes # 1.1 (1.0-4.8) k/uL Monocytes # 0.8 (0-1.0) k/uL Eosinophils # 0.1 (0-0.7) k/uL Basophils # 0.0 (0-0.2) k/uL Hypochromasia Slight PT (9.0-12.0) sec INR (<1.2) APTT (22.0-30.0) sec Sodium 136 L (137-145) mmol/L Potassium 5.5 H (3.5-5.1) mmol/L Chloride 101 (98-107) mmol/L Carbon Dioxide 29 (22-30) mmol/L Anion Gap 6 mmol/L BUN 18 H (7-17) mg/dL Creatinine 0.91 (0.52-1.04) mg/dL Est GFR (CKD-EPI)AfAm 74 (>60 ml/min/1.73 sqM) Est GFR (CKD-EPI)NonAf 64 (>60 ml/min/1.73 sqM) Glucose 150 H (74-99) mg/dL Calcium 8.4 (8.4-10.2) mg/dL Magnesium 2.0 (1.6-2.3) mg/dL Total Bilirubin 0.7 (0.2-1.3) mg/dL AST 21 (14-36) U/L ALT 19 (9-52) U/L Alkaline Phosphatase 87 (38-126) U/L Troponin I (0.000-0.034) ng/mL NT-Pro-B Natriuret Pep 912 pg/mL Total Protein 5.6 L (6.3-8.2) g/dL Albumin 3.1 L (3.5-5.0) g/dL 08/08/18 08/08/18 Range/Units 23:05 23:05 WBC (3.8-10.6) k/uL RBC (3.80-5.40) m/uL Hgb (11.4-16.0) gm/dL Hct (34.0-46.0) % MCV (80.0-100.0) fL MCH (25.0-35.0) pg MCHC (31.0-37.0) g/dL RDW (11.5-15.5) % Plt Count (150-450) k/uL Neutrophils % % Lymphocytes % % Monocytes % % Eosinophils % % Basophils % % Neutrophils # (1.3-7.7) k/uL Lymphocytes # (1.0-4.8) k/uL Monocytes # (0-1.0) k/uL Eosinophils # (0-0.7) k/uL Basophils # (0-0.2) k/uL Hypochromasia PT 10.1 (9.0-12.0) sec INR 0.9 (<1.2) APTT 28.3 (22.0-30.0) sec Sodium (137-145) mmol/L Potassium (3.5-5.1) mmol/L Chloride (98-107) mmol/L Carbon Dioxide (22-30) mmol/L Anion Gap mmol/L BUN (7-17) mg/dL Creatinine (0.52-1.04) mg/dL Est GFR (CKD-EPI)AfAm (>60 ml/min/1.73 sqM) Est GFR (CKD-EPI)NonAf (>60 ml/min/1.73 sqM) Glucose (74-99) mg/dL Calcium (8.4-10.2) mg/dL Magnesium (1.6-2.3) mg/dL Total Bilirubin (0.2-1.3) mg/dL AST (14-36) U/L ALT (9-52) U/L Alkaline Phosphatase (38-126) U/L Troponin I <0.012 (0.000-0.034) ng/mL NT-Pro-B Natriuret Pep pg/mL Total Protein (6.3-8.2) g/dL Albumin (3.5-5.0) g/dL Disposition Clinical Impression: Atrial fibrillation with RVR, Pleural effusion, left, Chest pain Disposition: ADMITTED IP TO THIS HOSP Condition: Serious Is patient prescribed a controlled substance at d/c from ED?: No Referrals: Kael Jon MD [Primary Care Provider] - 1-2 days
[2018-08-08 23:57] LABS: Albumin 3.1 g/dL (3.5-5.0); Calcium 8.4 mg/dL (8.4-10.2); Potassium 5.5 mmol/L (3.5-5.1); Total Bilirubin 0.7 mg/dL (0.2-1.3); Total Protein 5.6 g/dL (6.3-8.2)
[2018-08-08 23:59] LABS: INR 0.9 (<1.2); Partial Thromboplastin Time 28.3 sec (22.0-30.0); Prothrombin Time 10.1 sec (9.0-12.0)
--- NOTE | 2018-08-08 23:59 | XR ---
EXAM: XR Chest, 1 View CLINICAL HISTORY: ITS.REASON XR Reason: chest pain TECHNIQUE: Frontal view of the chest. COMPARISON: Chest radiograph on 05/13/2018 FINDINGS: Hardware: None. Lungs/pleura: Left-sided pleural effusion with associated atelectasis versus pneumonia in the left lung. Right basilar atelectasis. Heart/mediastinum: Stable mild enlargement of the cardiomediastinal silhouette. Soft tissues: Unremarkable. Bones: No acute fracture. Degenerative changes of the acromioclavicular joints. Upper abdomen: Normal. IMPRESSION: Left-sided pleural effusion with associated atelectasis versus pneumonia in the left lung. Right basilar atelectasis.
[2018-08-09 00:02] LABS: Basophils % (A) 0 %; Eosinophils # (A) 0.1 k/uL (0-0.7); Eosinophils % (A) 1 %; HCT 37.3 % (34.0-46.0); HGB 11.7 gm/dL (11.4-16.0); Hypochromasia Slight; Lymphocytes # (A) 1.1 k/uL (1.0-4.8); Lymphocytes % (A) 11 %; MCH 28.4 pg (25.0-35.0); MCHC 31.4 g/dL (31.0-37.0); MCV 90.6 fL (80.0-100.0); Mean Platelet Volume 6.4; Monocytes # (A) 0.8 k/uL (0-1.0); Monocytes % (A) 8 %; Neutrophils # (A) 7.2 k/uL (1.3-7.7); Neutrophils % (A) 76 %; Platelet Count 368 k/uL (150-450); RBC 4.12 m/uL (3.80-5.40); RDW 14.8 % (11.5-15.5); WBC 9.4 k/uL (3.8-10.6)
[2018-08-09] MEDS: SODIUM CHLORIDE 0.9% 250 ML IV SCH ×7 (00:09→14:27)
[2018-08-09] MEDS: METOPROLOL TARTRATE 5 MG/5 ML VIAL IVP SCH ×12 (00:15→14:31)
[2018-08-09] MEDS ORDERED: HEPARIN SODIUM,PORCINE 5,000 UNIT/ML 1 ML VIAL IV ONE (00:43)
[2018-08-09] MEDS ORDERED: HEPARIN SODIUM,PORCINE 5,000 UNIT/ML 1 ML VIAL IV PRN (00:43)
[2018-08-09] MEDS ORDERED: NALOXONE 0.4 MG/ML 1 ML VIAL IV PRN (00:58)
[2018-08-09] MEDS ORDERED: ACETAMINOPHEN TAB 325 MG TAB PO PRN (00:58)
[2018-08-09] MEDS ORDERED: MAGNESIUM HYDROXIDE 2,400 MG/10 ML CUP PO PRN (01:05)
[2018-08-09] MEDS ORDERED: lamoTRIgine 100 MG TAB PO SCH (01:15)
[2018-08-09 01:39] LABS: Basophils % (A) 0 %; Eosinophils # (A) 0.1 k/uL (0-0.7); Eosinophils % (A) 1 %; HCT 37.1 % (34.0-46.0); HGB 11.2 gm/dL (11.4-16.0); Hypochromasia Moderate; Lymphocytes % (A) 11 %; MCH 27.9 pg (25.0-35.0); MCHC 30.1 g/dL (31.0-37.0); MCV 92.5 fL (80.0-100.0); Mean Platelet Volume 6.4; Monocytes # (A) 0.7 k/uL (0-1.0); Monocytes % (A) 7 %; Neutrophils # (A) 7.3 k/uL (1.3-7.7); Neutrophils % (A) 77 %; Platelet Count 343 k/uL (150-450); RDW 14.8 % (11.5-15.5); WBC 9.5 k/uL (3.8-10.6)
[2018-08-09 01:47] LABS: INR 0.9 (<1.2); Prothrombin Time 10.2 sec (9.0-12.0)
[2018-08-09] MEDS: HEPARIN SOD,PORK IN 0.45% NACL 25,000 UNIT in 0.45% NACL 1 250ML.BAG IV SCH (01:48)
[2018-08-09] MEDS: SODIUM CHLORIDE 0.9% 1,000 ML IV SCH ×2 (01:52→17:22)
[2018-08-09 06:05] LABS: Glucose,Whole Blood 134 mg/dL (75-99)
[2018-08-09] MEDS: MORPHINE SULFATE 4 MG/ML SYRINGE ONE ×2 (06:41→06:44)
[2018-08-09] MEDS ORDERED: LISINOPRIL 5 MG TAB PO SCH (09:00)
[2018-08-09] MEDS: GABAPENTIN 300 MG CAP PO SCH ×2 (09:33→20:24)
[2018-08-09] MEDS: DULoxetine HCL 60 MG CAPSULE.DR PO SCH (09:33)
[2018-08-09] MEDS: PANTOPRAZOLE 40 MG TABLET PO SCH (09:33)
[2018-08-09] MEDS: ANASTROZOLE 1 MG TAB PO SCH (09:33)
[2018-08-09] MEDS: AMIODARONE 200 MG TAB PO SCH (09:33)
[2018-08-09] MEDS: lamoTRIgine 100 MG TAB PO SCH ×2 (09:34→20:24)
[2018-08-09] MEDS: MORPHINE SULFATE 4 MG/ML SYRINGE IV PRN (09:35)
[2018-08-09] MEDS ORDERED: NITROGLYCERIN SL TABS 0.4 MG TAB SUBLINGUAL PRN (11:20)
[2018-08-09 11:49] LABS: Glucose,Whole Blood 152 mg/dL (75-99)
[2018-08-09] MEDS ORDERED: INSULIN ASPART (NovoLOG) 100 UNIT/ML VIAL SQ SCH (12:00)
[2018-08-09 12:01] LABS: Calcium 8.1 mg/dL (8.4-10.2); Potassium 5.3 mmol/L (3.5-5.1)
--- NOTE | 2018-08-09 12:25 | P.HPIM ---
History of Present Illness 68-year-old female came in with compensative chest pain which Is worsened with a deep breathing patient is a significant effusion on the chest x-ray. Patient is not a really good historian although alert oriented 2-3. Patient chest pain is in the midsternal retrosternal area no nonradiating 8/10 in severity, denied any significant shortness of breath lightheadedness diaphoresis associated with that. Her chest pain is mostly like pressure. Patient doesn't have any history of congestive heart failure does appear to have significant pleural effusion on the left side. Patient denied any cough, no leukocytosis no fevers no evidence of pneumonia at this time. Patient is also found to be in atrial fibrillation patient has known A. fib for which patient is on anticoagulation with Eliquis that she had normal ejection fraction the past did not appear to have any congestive heart failure either systolic or diastolic dysfunction the past because of hyperkalemia all this can you potassium and lisinopril at this time cardiology was consulted. I'll also consult pulmonary because of her pleural effusion. Patient does have history of cervical cancer did have vaginal bleeding GI bleed in the past for which patient will be a is a supposed to undergo colonoscopy. Presently doesn't have any GI bleed issue patient is presently on heparin which will be continued Eliquis will be held. Review of Systems REVIEW OF SYSTEMS: CONSTITUTIONAL: No fever, no malaise, no fatigue. HEENT: No recent visual problems or hearing problems. Denied any sore throat. CARDIOVASCULAR: No chest pain, orthopnea, PND, no palpitations, no syncope. PULMONARY: As mentioned in HPI GASTROINTESTINAL: No diarrhea, no nausea, no vomiting, no abdominal pain. NEUROLOGICAL: No headaches, no weakness, no numbness. HEMATOLOGICAL: Denies any bleeding or petechiae. GENITOURINARY: Denies any burning micturition, frequency, or urgency. MUSCULOSKELETAL/RHEUMATOLOGICAL: Denies any joint pain, swelling, or any muscle pain. ENDOCRINE: Denies any polyuria or polydipsia. The rest of the 14-point review of systems is negative. Past Medical History Past Medical History: Atrial Fibrillation, Coronary Artery Disease (CAD), Cancer , Chest Pain / Angina, Diabetes Mellitus, GERD/Reflux, Hypertension, Osteoarthritis (OA), Sleep Apnea/CPAP/BIPAP Additional Past Medical History / Comment(s): PER PAST MEDICAL HX-ARTHRITIS,BP, VARICOSE VEINS, SINUS PROBLEMS, SLEEP APNEA-NO CPAP USED,GERD, BIPOLAR/MANIC DEPRESSION-PAST HOPSITALIZATION FOR SUICIDAL THOUGHTS IN 2007 & IN 2O08, HX OF FALLS(PAST FX TO SACRUM AND RT RIB), DX 12-04-15 MALIGNANT NEOPLASM UTERUS-PER ECF NO SX BUT HAS BEEN RECEIVING RADIATION TX-unk last tx per ecf nurse- receives chemo injection every 6 mos-unk last dose per [facility] nurse.UTI'S-none recent History of Any Multi-Drug Resistant Organisms: None Reported Past Surgical History: Adenoidectomy, Section, Cholecystectomy, Heart Catheterization With Stent, Hysterectomy, Tonsillectomy, Tubal Ligation Additional Past Surgical History / Comment(s): PER PAST HX IN 2007 HEART CATH(5 STENTS),KAMRAN CARPAL TUNNEL,PAIN CLINIC INJ(BACK)/RADIO FREQ FACET BLOCK/SACRAL X2. Past Anesthesia/Blood Transfusion Reactions: Unable to Obtain Date of Last Stent Placement:: UNK Past Psychological History: Bipolar, Depression Smoking Status: Never smoker Past Alcohol Use History: None Reported Past Drug Use History: None Reported - Past Family History Father Family Medical History: Unable to Obtain Mother Family Medical History: Unable to Obtain Medications and Allergies Home Medications Medication Instructions Recorded Confirmed Type Anastrozole [Arimidex] 1 mg PO DAILY 06/22/16 08/08/18 History Cholecalciferol [Vitamin D3] 4,000 unit PO HS 06/22/16 08/08/18 History DULoxetine HCL [Cymbalta] 60 mg PO DAILY 06/22/16 08/08/18 History Insulin Glargine [Lantus] 20 unit SQ DAILY 06/22/16 08/08/18 History Potassium Chloride ER [K-Dur 10] 10 meq PO BID 06/22/16 08/08/18 History lamoTRIgine [LaMICtal] 150 mg PO Q12H 06/22/16 08/08/18 History Acetaminophen Tab [Tylenol] 650 mg PO Q4HR PRN #0 tab 06/25/16 08/08/18 Rx Amiodarone [Cordarone] 200 mg PO DAILY 07/26/17 08/08/18 History Apixaban [Eliquis] 5 mg PO BID 07/26/17 08/08/18 History Bisacodyl [Dulcolax] 10 mg RECTAL DAILY PRN 07/26/17 08/08/18 History Gabapentin [Neurontin] 300 mg PO BID 07/26/17 08/08/18 History INSULIN LISPRO (HumaLOG) [humaLOG] 3 units SQ AC-TID@07,12,17 07/26/17 08/08/18 History Magnesium Hydroxide [Milk of 30 ml PO HS PRN 07/26/17 08/08/18 History Magnesia] Magnesium Oxide [Mag-Ox] 400 mg PO HS 07/26/17 08/08/18 History Nitroglycerin Sl Tabs [Nitrostat] 0.4 mg SUBLINGUAL Q5M PRN 07/26/17 08/08/18 History Pravastatin Sodium [Pravachol] 20 mg PO HS@199907/26/17 08/08/18 History Lisinopril [Zestril] 5 mg PO DAILY 08/08/18 08/08/18 History Omeprazole 20 mg PO DAILY 08/08/18 08/08/18 History Allergies Allergy/AdvReac Type Severity Reaction Status Date / Time lorazepam [From Ativan] Allergy Unknown Verified 08/08/18 23:25 nabumetone [From Relafen] Allergy Rash/Hives Verified 08/08/18 23:25 Sulfa (Sulfonamide Allergy Rash/Hives Verified 08/08/18 23:25 Antibiotics) Physical Exam Vitals: Vital Signs Temp Pulse Pulse Resp BP BP Pulse Ox 08/09/18 08:00 98.8 F 102 H 20 105/60 97 08/09/18 06:45 95 109/73 08/09/18 06:34 85 100/59 08/09/18 06:17 97.1 F L 89 16 103/64 98 08/09/18 05:15 98.3 F 105 H 17 97/57 97 08/09/18 01:52 98.5 F 105 H 18 97/66 97 08/09/18 00:37 100 19 104/74 100 08/09/18 00:29 107 H 19 103/81 08/09/18 00:16 122 H 96/85 08/09/18 00:01 118 H 18 88/69 97 08/08/18 23:41 124 H 18 95/74 94 L 08/08/18 23:23 123 H 18 93/69 95 08/08/18 23:02 99.7 F H 129 H 18 103/67 88 L Intake and Output 08/08/18 08/09/18 08/09/18 22:59 06:59 14:59 Intake Total 47.167 Balance 47.167 Intake: Intake, IV Titration 47.167 Amount Heparin Sod,Pork in 0.45% 47.167 NaCl 25,000 unit In 0.45 % NaCl 1 250ml.bag @ 9 UNITS/KG/HR 9.34 mls/hr IV .Q24H [facility] Rx#: [id number] Other: Weight 103.873 kg PHYSICAL EXAMINATION: GENERAL: The patient is alert and oriented x3, not in any acute distress. Well developed, well nourished. HEENT: Pupils are round and equally reacting to light. EOMI. No scleral icterus. No conjunctival pallor. Normocephalic, atraumatic. No pharyngeal erythema. No thyromegaly. CARDIOVASCULAR: S1 and S2 present. No murmurs, rubs, or gallops. PULMONARY: Decreased air rate in the left side andcracklesorwheezingonexam. ABDOMEN: Soft, nontender, nondistended, normoactive bowel sounds. No palpable organomegaly. MUSCULOSKELETAL: No joint swelling or deformity. EXTREMITIES: No cyanosis, clubbing, or pedal edema. NEUROLOGICAL: Gross neurological examination did not reveal any focal deficits. SKIN: No rashes. Results CBC & Chem 7: 08/09/18 01:22 08/09/18 10:50 Labs: Abnormal Lab Results - Last 24 Hours (Table) 08/08/18 08/09/18 08/09/18 Range/Units 23:05 01:22 06:03 Hgb 11.2 L (11.4-16.0) gm/dL MCHC 30.1 L (31.0-37.0) g/dL APTT (22.0-30.0) sec Sodium 136 L (137-145) mmol/L Potassium 5.5 H (3.5-5.1) mmol/L BUN 18 H (7-17) mg/dL Creatinine (0.52-1.04) mg/dL Glucose 150 H (74-99) mg/dL POC Glucose (mg/dL) 134 H (75-99) mg/dL Calcium (8.4-10.2) mg/dL Total Protein 5.6 L (6.3-8.2) g/dL Albumin 3.1 L (3.5-5.0) g/dL 08/09/18 08/09/18 08/09/18 Range/Units 06:16 10:50 11:47 Hgb (11.4-16.0) gm/dL MCHC (31.0-37.0) g/dL APTT 38.0 H (22.0-30.0) sec Sodium (137-145) mmol/L Potassium 5.3 H (3.5-5.1) mmol/L BUN 22 H (7-17) mg/dL Creatinine 1.15 H (0.52-1.04) mg/dL Glucose 162 H (74-99) mg/dL POC Glucose (mg/dL) 152 H (75-99) mg/dL Calcium 8.1 L (8.4-10.2) mg/dL Total Protein (6.3-8.2) g/dL Albumin (3.5-5.0) g/dL Thrombosis Risk Factor Assmnt - Choose All That Apply Each Factor Represents 1 point: Obesity (BMI >25) Each Risk Factor Represents 2 Points: Age 61-74 years Other congenital or acquired thrombophilia - If yes, enter type in comment: No Thrombosis Risk Factor Assessment Total Risk Factor Score: 3 Thrombosis Risk Factor Assessment Level: Moderate Risk Assessment and Plan Plan: -Atrial fibrillation patient is was not rate controlled patient will be resumed on her home medications and the cardiology will evaluate the patient will continue with heparin at this time -Chest pain mostly related to her pleural effusion although does not appear to have parapneumonic effusion no evidence of pneumonia at this time we'll consult pulmonary for therapeutic and diagnostic thoracocentesis on the left side. Patient's BNP is only 912 does not appear to be in CHF exacerbation at this time she had normal ejection fraction the past -Hyperkalemia secondary to potassium supplementation of lisinopril daily will be held -History of cervical cancer for which patient is on hormone therapy at this time -Type 2 diabetes mellitus patient will be started on sliding scale will hold off her home regimen -Coronary artery disease -Gastroesophageal reflux disease -Hypertension -Osteoarthritis -Sleep apnea -Depression -Recent vaginal bleed secondary to uterine/cervical cancer. Will monitor for any GI bleed or vaginal bleed in this hospital is .
[2018-08-09] MEDS: INSULIN ASPART (NovoLOG) 100 UNIT/ML VIAL SQ SCH ×2 (12:29→17:22)
[2018-08-09 14:40] VITALS: BMI 34.8
[2018-08-09 16:42] LABS: Glucose,Whole Blood 203 mg/dL (75-99)
[2018-08-09] MEDS ORDERED: METOPROLOL TARTRATE 50 MG TAB PO STA (20:12)
[2018-08-09] MEDS: CHOLECALCIFEROL 1,000 UNIT TAB PO SCH (20:22)
[2018-08-09] MEDS: PRAVASTATIN SODIUM 20 MG TAB PO SCH (20:24)
[2018-08-09] MEDS: traMADol 50 MG TAB PO PRN (20:25)
[2018-08-09 21:04] LABS: Glucose,Whole Blood 222 mg/dL (75-99)
[2018-08-10] MEDS: LIDOCAINE 5% PATCH TOPICAL SCH ×2 (00:24→21:22)
[2018-08-10] MEDS: HEPARIN SOD,PORK IN 0.45% NACL 25,000 UNIT in 0.45% NACL 1 250ML.BAG IV SCH (00:27)
[2018-08-10 04:24] LABS: Glucose,Whole Blood 157 mg/dL (75-99)
[2018-08-10] MEDS: traMADol 50 MG TAB PO PRN ×2 (04:39→15:41)
[2018-08-10 06:03] LABS: Basophils # (A) 0.1 k/uL (0-0.2); Basophils % (A) 1 %; Eosinophils # (A) 0.1 k/uL (0-0.7); Eosinophils % (A) 1 %; HCT 35.9 % (34.0-46.0); HGB 10.9 gm/dL (11.4-16.0); Hypochromasia Marked; Lymphocytes # (A) 0.8 k/uL (1.0-4.8); Lymphocytes % (A) 7 %; MCH 28.6 pg (25.0-35.0); MCHC 30.3 g/dL (31.0-37.0); MCV 94.5 fL (80.0-100.0); Mean Platelet Volume 6.5; Monocytes # (A) 0.7 k/uL (0-1.0); Monocytes % (A) 7 %; Neutrophils # (A) 9.1 k/uL (1.3-7.7); Neutrophils % (A) 81 %; Platelet Count 403 k/uL (150-450); RDW 14.7 % (11.5-15.5); WBC 11.3 k/uL (3.8-10.6)
[2018-08-10 06:14] LABS: Glucose,Whole Blood 176 mg/dL (75-99)
[2018-08-10] MEDS: PANTOPRAZOLE 40 MG TABLET PO SCH (06:39)
[2018-08-10] MEDS: INSULIN ASPART (NovoLOG) 100 UNIT/ML VIAL SQ SCH ×3 (06:39→17:42)
[2018-08-10] MEDS ORDERED: METOPROLOL TARTRATE 25 MG TAB PO SCH (09:00)
[2018-08-10] MEDS ORDERED: INSULIN DETEMIR (LEVEMIR) 100 UNIT/ML SYR SQ SCH (09:00)
--- NOTE | 2018-08-10 09:30 | US ---
EXAMINATION TYPE: US chest DATE OF EXAM: 08/10/2018 COMPARISON: X ray from 2 days ago. CLINICAL HISTORY: left pleural effusion. TECHNIQUE: Targeted ultrasound of the posterior lower left EXAM MEASUREMENTS: Right Pleural Effusion pocket size: no chest fluid is seen by US Left Pleural Effusion pocket size: 8.7 cm Left skin surface to fluid distance: 4.4 cm Left side was marked for possible thoracentesis outside the dept. Pulmonologists are able to review the images in the patient?s EMR. IMPRESSIONS: Moderate to large size left pleural effusion is confirmed as suspected on comparison x-r ay. No significant right-sided effusion.
[2018-08-10] MEDS: ANASTROZOLE 1 MG TAB PO SCH (09:55)
[2018-08-10] MEDS: GABAPENTIN 300 MG CAP PO SCH ×2 (09:55→21:25)
[2018-08-10] MEDS: lamoTRIgine 100 MG TAB PO SCH ×2 (09:55→21:25)
[2018-08-10] MEDS: AMIODARONE 200 MG TAB PO SCH ×3 (09:55→21:25)
[2018-08-10] MEDS: DULoxetine HCL 60 MG CAPSULE.DR PO SCH (09:55)
[2018-08-10] MEDS: SODIUM CHLORIDE 0.9% 1,000 ML IV SCH (09:58)
--- NOTE | 2018-08-10 10:48 | P.PN ---
Subjective 68-year-old female admitted for lytic chest pain secondary to left-sided pleural effusion significant amount of pleural effusion will need therapy and diagnostic paracentesis, pulmonary was consulted. Patient also has A. fib with mildly elevated heart rate patient is still complaining of significant amount of pleuritic chest pain. Constitutional: Denied any fatigue denied any fever. Cardio vascular: denied any chest pain, palpitations Gastrointestinal denied any nausea vomiting Pulmonary: Comparing of lytic chest pain as mentioned above Neurologic denied any new focal deficits All inpatient medications were reviewed and appropriate changes in these medications as dictated in the interval history and assessment and plan. Objective - Vital Signs Vital signs: Vital Signs Temp 98.9 F 08/10/18 04:41 Pulse 113 H 08/10/18 04:41 Resp 20 08/10/18 04:41 BP 104/59 08/10/18 04:41 Pulse Ox 98 08/10/18 04:41 Intake & Output 08/09/18 08/10/18 08/10/18 18:59 06:59 18:59 Intake Total 353.178 209.655 240 Balance 353.178 209.655 240 Weight 103.873 kg 96.8 kg Intake: Intake, IV Titration 113.178 209.655 Amount Heparin Sod,Pork in 0.45% 113.178 89.655 NaCl 25,000 unit In 0.45 % NaCl 1 250ml.bag @ 9 UNITS/KG/HR 9.34 mls/hr IV .Q24H [facility] Rx#: [id number] Sodium Chloride 0.9% 1, 120 000 ml @ 60 mls/hr IV . [id number] K[facility]O Rx#:[id number] Oral 240 240 Other: Voiding Method Toilet # Voids 1 1 1 - Exam PHYSICAL EXAMINATION: GENERAL: The patient is alert and oriented x3, not in any acute distress. Well developed, well nourished. HEENT: Pupils are round and equally reacting to light. EOMI. No scleral icterus. No conjunctival pallor. Normocephalic, atraumatic. No pharyngeal erythema. No thyromegaly. CARDIOVASCULAR: S1 and S2 present. No murmurs, rubs, or gallops. PULMONARY: Decreased air rate in the left side andcracklesorwheezingonexam. ABDOMEN: Soft, nontender, nondistended, normoactive bowel sounds. No palpable organomegaly. MUSCULOSKELETAL: No joint swelling or deformity. EXTREMITIES: No cyanosis, clubbing, or pedal edema. NEUROLOGICAL: Gross neurological examination did not reveal any focal deficits. SKIN: No rashes. - Labs CBC & Chem 7: 08/10/18 05:31 08/09/18 10:50 Labs: Abnormal Lab Results - Last 24 Hours (Table) 08/09/18 08/09/18 08/09/18 Range/Units 10:50 11:47 14:13 WBC (3.8-10.6) k/uL Hgb (11.4-16.0) gm/dL MCHC (31.0-37.0) g/dL Neutrophils # (1.3-7.7) k/uL Lymphocytes # (1.0-4.8) k/uL APTT 31.9 H (22.0-30.0) sec Potassium 5.3 H (3.5-5.1) mmol/L BUN 22 H (7-17) mg/dL Creatinine 1.15 H (0.52-1.04) mg/dL Glucose 162 H (74-99) mg/dL POC Glucose (mg/dL) 152 H (75-99) mg/dL Calcium 8.1 L (8.4-10.2) mg/dL 08/09/18 08/09/18 08/09/18 Range/Units 16:32 21:02 22:29 WBC (3.8-10.6) k/uL Hgb (11.4-16.0) gm/dL MCHC (31.0-37.0) g/dL Neutrophils # (1.3-7.7) k/uL Lymphocytes # (1.0-4.8) k/uL APTT 82.3 H (22.0-30.0) sec Potassium (3.5-5.1) mmol/L BUN (7-17) mg/dL Creatinine (0.52-1.04) mg/dL Glucose (74-99) mg/dL POC Glucose (mg/dL) 203 H 222 H (75-99) mg/dL Calcium (8.4-10.2) mg/dL 08/10/18 08/10/18 08/10/18 Range/Units 04:23 05:31 05:31 WBC 11.3 H (3.8-10.6) k/uL Hgb 10.9 L (11.4-16.0) gm/dL MCHC 30.3 L (31.0-37.0) g/dL Neutrophils # 9.1 H (1.3-7.7) k/uL Lymphocytes # 0.8 L (1.0-4.8) k/uL APTT 50.4 H (22.0-30.0) sec Potassium (3.5-5.1) mmol/L BUN (7-17) mg/dL Creatinine (0.52-1.04) mg/dL Glucose (74-99) mg/dL POC Glucose (mg/dL) 157 H (75-99) mg/dL Calcium (8.4-10.2) mg/dL 08/10/18 Range/Units 06:12 WBC (3.8-10.6) k/uL Hgb (11.4-16.0) gm/dL MCHC (31.0-37.0) g/dL Neutrophils # (1.3-7.7) k/uL Lymphocytes # (1.0-4.8) k/uL APTT (22.0-30.0) sec Potassium (3.5-5.1) mmol/L BUN (7-17) mg/dL Creatinine (0.52-1.04) mg/dL Glucose (74-99) mg/dL POC Glucose (mg/dL) 176 H (75-99) mg/dL Calcium (8.4-10.2) mg/dL Assessment and Plan Plan: -Atrial fibrillation patient is was not rate controlled patient will be resumed on her home medications and the cardiology will evaluate the patient will continue with heparin at this time -Chest pain mostly related to her pleural effusion although does not appear to have parapneumonic effusion no evidence of pneumonia at this time we'll consult pulmonary for therapeutic and diagnostic thoracocentesis on the left side. Patient's BNP is only 912 does not appear to be in CHF exacerbation at this time she had normal ejection fraction the past -Hyperkalemia secondary to potassium supplementation of lisinopril daily will be held repeat basic metabolic profile tomorrow -History of cervical cancer for which patient is on hormone therapy at this time. Pleural effusion can be secondary to malignancy -Type 2 diabetes mellitus patient will be started on sliding scale will hold off her home regimen -Coronary artery disease -Gastroesophageal reflux disease -Hypertension -Osteoarthritis -Sleep apnea -Depression -Recent vaginal bleed secondary to uterine/cervical cancer. Will monitor for any GI bleed or vaginal bleed in this hospital.
--- NOTE | 2018-08-10 11:04 | CONS ---
CONSULTATION Mrs. Valladares is a 68-year-old female who is seen for cardiac evaluation. Patient is a rather poor historian. The history was mostly obtained from the patient's medical records. This patient came to the hospital with a complaint of chest pain in the left precordial area and shortness of breath. The pain was a pressure-like discomfort. Patient denied any fever or chills. Denied any cough. The patient was found to be in atrial fibrillation with a moderately rapid ventricular response. The patient is known to have a chronic atrial fibrillation, history of hypertension and patient has a history of a uterine cancer with a possible metastasis. At present, patient is comfortable without any acute distress. PAST MEDICAL HISTORY: Includes history of atrial fibrillation, coronary artery disease, a history of possible metastatic uterine cancer. HOME MEDICATIONS INCLUDE: Cymbalta 60 mg daily, Lantus insulin 20 units daily, Cordarone 200 mg daily, Pravachol 20 mg daily, Apixaban 5 mg b.i.d., omeprazole 20 mg daily, Zestril 5 mg daily. PHYSICAL EXAMINATION: At present reveals a 68-year-old female who does not appear to be in any acute respiratory distress. Patient's heart rate is running between 100-120. Patient's blood pressure is 104/59 mmHg, oxygen saturation is 98%. HEENT examination is negative. Neck is supple. There is no increase in jugular venous pressure. Both the carotid pulses are felt, there is no bruit. Chest is symmetrical. Heart, the PMI is not felt. First and second heart sounds are heard. Lungs revealed markedly diminished air entry on the left side. Abdomen is negative. Extremities, there is no evidence of any leg edema. Patient's creatinine is 0.95. Patient's BNP level is 915. Chest x-ray is suggestive of pleural effusion. Patient currently is on IV heparin. IMPRESSION: 1. Atrial fibrillation with a moderately rapid ventricular response. Patient is currently not in acute respiratory distress. 2. Patient has a large left-sided pleural effusion. Pulmonary consultation is obtained. Patient currently is on IV heparin and Eliquis is on hold. Echo and Doppler study will be done. I will increase the dose of amiodarone to 200 mg t.i.d., Lopressor 25 mg q.i.d. MMODL / IJN: [id number] /
[2018-08-10 11:51] LABS: Glucose,Whole Blood 166 mg/dL (75-99)
[2018-08-10] MEDS: METOPROLOL TARTRATE 25 MG TAB PO SCH ×3 (12:24→22:47)
[2018-08-10] MEDS ORDERED: RX INFO: IV CONTRAST WAS GIVEN 1 EACH MISC MISCELLANE PRN (12:58)
--- NOTE | 2018-08-10 16:02 | P.CNPUL ---
History of Present Illness Consult date: 08/10/18 Reason for consult: hypoxemia History of present illness: A 68-year-old female patient with has both for worsening shortness of breath. The patient is very poor historian. She has underlying dementia. She cannot volunteer a lot of medical information. Based on my review of the records, this patient has history of left-sided breast cancer in this patient is status post mastectomy followed by hormonal therapy including Arimidex. The patient is a [facility] resident. The patient is coming into the hospital because of worsening shortness of breath. She also had an issue with atrial fibrillation. The chest x-ray showed a left-sided pleural effusion that seems to be somewhat loculated. Going back to the CAT scan of the chest that was done on , the patient had a pleural-based density measuring 2.6 x 1 cm in size in addition to a pathologic fracture in that area consistent with metastatic disease. No pneumothorax and there was only a tiny left-sided pleural effusion. Also, there was a 4.6 x 4 cm mass in the spleen and ill-defined linear soft tissue attenuation and omentum anterior to the spleen possibly representing an underlying omental metastases. For now, the patient is being considered for a malignant left-sided pleural effusion which probably has progressed since her earlier evaluation. Echocardiogram from 05/15/2018 was within normal limits and the patient a preserved LV function. The patient is comfortable at rest. She has a pulse ox of 96% on 2 L of oxygen by nasal cannula. She is afebrile. Her cardiac rhythm is atrial fibrillation with rapid ventricular response in the right bundle branch block pattern. No significant cough sputum production. Some discomfort along the left chest area. No reported aspiration. Review of Systems ROS unobtainable: due to mental status Past Medical History Past Medical History: Atrial Fibrillation, Coronary Artery Disease (CAD), Cancer , Chest Pain / Angina, Diabetes Mellitus, GERD/Reflux, Hypertension, Osteoarthritis (OA), Sleep Apnea/CPAP/BIPAP Additional Past Medical History / Comment(s): Breast cancer, coronary artery disease, diabetes mellitus, hypertension, obstructive sleep apnea, osteoarthritis, bipolar disorder/manic disorder/depression, history of uterine cancer, history of recurrent urine checked infections, hypertension, varicose veins, dementia. History of Any Multi-Drug Resistant Organisms: None Reported Past Surgical History: Adenoidectomy, Section, Cholecystectomy, Heart Catheterization With Stent, Hysterectomy, Tonsillectomy, Tubal Ligation Additional Past Surgical History / Comment(s): PER PAST HX IN 2007 HEART CATH(5 STENTS),KAMRAN CARPAL TUNNEL,[facility] INJ(BACK)/RADIO FREQ FACET BLOCK/SACRAL X2. Past Anesthesia/Blood Transfusion Reactions: Unable to Obtain Date of Last Stent Placement:: UNK Past Psychological History: Bipolar, Depression Smoking Status: Never smoker Past Alcohol Use History: None Reported Past Drug Use History: None Reported - Past Family History Father Family Medical History: Unable to Obtain Mother Family Medical History: Unable to Obtain Medications and Allergies Home Medications Medication Instructions Recorded Confirmed Type Anastrozole [Arimidex] 1 mg PO DAILY 06/22/16 08/08/18 History Cholecalciferol [Vitamin D3] 4,000 unit PO HS 06/22/16 08/08/18 History DULoxetine HCL [Cymbalta] 60 mg PO DAILY 06/22/16 08/08/18 History Insulin Glargine [Lantus] 20 unit SQ DAILY 06/22/16 08/08/18 History Potassium Chloride ER [K-Dur 10] 10 meq PO BID 06/22/16 08/08/18 History lamoTRIgine [LaMICtal] 150 mg PO Q12H 06/22/16 08/08/18 History Acetaminophen Tab [Tylenol] 650 mg PO Q4HR PRN #0 tab 06/25/16 08/08/18 Rx Amiodarone [Cordarone] 200 mg PO DAILY 07/26/17 08/08/18 History Apixaban [Eliquis] 5 mg PO BID 07/26/17 08/08/18 History Bisacodyl [Dulcolax] 10 mg RECTAL DAILY PRN 07/26/17 08/08/18 History Gabapentin [Neurontin] 300 mg PO BID 07/26/17 08/08/18 History INSULIN LISPRO (HumaLOG) [humaLOG] 3 units SQ AC-TID@,,07/26/17 08/08/18 History Magnesium Hydroxide [Milk of 30 ml PO HS PRN 07/26/17 08/08/18 History Magnesia] Magnesium Oxide [Mag-Ox] 400 mg PO HS 07/26/17 08/08/18 History Nitroglycerin Sl Tabs [Nitrostat] 0.4 mg SUBLINGUAL Q5M PRN 07/26/17 08/08/18 History Pravastatin Sodium [Pravachol] 20 mg PO HS@199907/26/17 08/08/18 History Lisinopril [Zestril] 5 mg PO DAILY 08/08/18 08/08/18 History Omeprazole 20 mg PO DAILY 08/08/18 08/08/18 History Allergies Allergy/AdvReac Type Severity Reaction Status Date / Time lorazepam [From Ativan] Allergy Unknown Verified 08/08/18 23:25 nabumetone [From Relafen] Allergy Rash/Hives Verified 08/08/18 23:25 Sulfa (Sulfonamide Allergy Rash/Hives Verified 08/08/18 23:25 Antibiotics) Physical Exam Vitals: Vital Signs Temp Pulse Resp BP Pulse Ox 08/10/18 12:00 98.7 F 112 H 20 96/76 96 08/10/18 08:15 99.1 F 100 20 116/57 96 08/10/18 04:41 98.9 F 113 H 20 104/59 98 08/10/18 00:46 104 H 18 94/52 96 08/09/18 20:14 97.9 F 124 H 18 124/60 95 08/09/18 16:00 98.4 F 119 H 22 101/47 98 Intake and Output 08/10/18 08/10/18 08/10/18 06:59 14:59 22:59 Intake Total 89.655 480 Balance 89.655 480 Intake: Intake, IV Titration 89.655 Amount Heparin Sod,Pork in 0.45% 89.655 NaCl 25,000 unit In 0.45 % NaCl 1 250ml.bag @ 9 UNITS/KG/HR 9.34 mls/hr IV .Q24H [facility] Rx#: [id number] Oral 480 Other: # Voids 1 1 Weight 96.8 kg Appearance the patient is a non-in acute distress. She is alert and oriented 1 -2. No acute respiratory distress. Resting comfortably in bed. Head exam was generally normal. There was no scleral icterus or corneal arcus. Mucous membranes were moist. Neck was supple and without jugular venous distension, thyromegaly, or carotid bruits. Carotids were easily palpable bilaterally. There was no adenopathy. Lungs sounds are markedly diminished on the left compared to the right. There is also some pain upon palpating the left chest wall area. Cardiac exam revealed the PMI to be normally situated and sized. The rhythm was regular and no extrasystoles were noted during several minutes of auscultation. The first and second heart sounds were normal and physiologic splitting of the second heart sound was noted. There were no murmurs, rubs, clicks, or gallops. Abdominal exam revealed normal bowel sounds. The abdomen was soft, non-tender, and without masses, organomegaly, or appreciable enlargement of the abdominal aorta. Examination of the extremities revealed easily palpable radial, femoral and pedal pulses. There was no cyanosis, clubbing or edema. Examination of the skin revealed no evidence of significant rashes, suspicious appearing nevi or other concerning lesions. Neurologic the no focal neurological deficits. Results - Laboratory Findings CBC and BMP: 08/10/18 05:31 08/09/18 10:50 PT/INR, D-dimer PT 10.2 sec (9.0-12.0) 08/09/18 01:22 INR 0.9 (<1.2) 08/09/18 01:22 Abnormal lab findings: Abnormal Labs 08/08/18 08/09/18 08/09/18 23:05 01:22 06:03 WBC Hgb 11.2 L MCHC 30.1 L Neutrophils # Lymphocytes # APTT Sodium 136 L Potassium 5.5 H BUN 18 H Creatinine Glucose 150 H POC Glucose (mg/dL) 134 H Calcium Total Protein 5.6 L Albumin 3.1 L 08/09/18 08/09/18 08/09/18 06:16 10:50 11:47 WBC Hgb MCHC Neutrophils # Lymphocytes # APTT 38.0 H Sodium Potassium 5.3 H BUN 22 H Creatinine 1.15 H Glucose 162 H POC Glucose (mg/dL) 152 H Calcium 8.1 L Total Protein Albumin 08/09/18 08/09/18 08/09/18 14:13 16:32 21:02 WBC Hgb MCHC Neutrophils # Lymphocytes # APTT 31.9 H Sodium Potassium BUN Creatinine Glucose POC Glucose (mg/dL) 203 H 222 H Calcium Total Protein Albumin 08/09/18 08/10/18 08/10/18 22:29 04:23 05:31 WBC 11.3 H Hgb 10.9 L MCHC 30.3 L Neutrophils # 9.1 H Lymphocytes # 0.8 L APTT 82.3 H Sodium Potassium BUN Creatinine Glucose POC Glucose (mg/dL) 157 H Calcium Total Protein Albumin 08/10/18 08/10/18 08/10/18 05:31 06:12 11:28 WBC Hgb MCHC Neutrophils # Lymphocytes # APTT 50.4 H Sodium Potassium BUN Creatinine Glucose POC Glucose (mg/dL) 176 H 166 H Calcium Total Protein Albumin - Diagnostic Findings Chest x-ray: image reviewed CT scan - chest: image reviewed Assessment and Plan Plan: \Assessment 1 large left-sided pleural effusion with compressive atelectasis of the left lung. This is likely that his presentation of a malignant pleural effusion. The patient had a pleural-based lesion along the left chest wall in addition to a pathological fracture consistent with metastatic disease. I think she has progressed and she has developed a large left-sided pleural effusion with interval atelectasis of the left lung and the patient is currently coming in for worsening shortness of breath. 2 atrial fibrillation, likely chronic, maintained on Eliquis on outpatient basis 3 history of breast cancer maintained on Arimidex on outpatient basis 4 history of uterine cancer 5 coronary artery disease with previous coronary intervention and stenting 6 dementia 7 history of bipolar disorder/depression 8 diabetes mellitus type 2 9 hypertension 10 osteoarthritis Plan Ideally, I would like evacuated left-sided pleural effusion. This can be done via thoracentesis of the chest tube insertion. Another option would be a Pleurx catheter insertion. Prior to committing to any procedures, black the oncologist consult on the patient to clarify the details of her oncologic history and at the same time give me prognosis and I would like to see there is any value in doing any further procedures on her lungs in regards to evacuated left-sided pleural effusion. I think we can wait another 24 hours as the patient was also taken of the Eliquis and pending oncology consultation to get further guidance and decide on treatment plan. Keep the patient IV heparin for now. Keep the patient on oxygen. CAT scan of the chest was reviewed. Highly suspect malignant left-sided pleural effusion with the above-mentioned comorbidities. Her baseline performance and functional status is poor. She has underlying dementia with impairment of the cognitive function. For all this reasons, it's reasonable to await oncology consultation prior to committing to any procedures in regards to the left-sided pleural effusion.
[2018-08-10 16:31] LABS: Glucose,Whole Blood 240 mg/dL (75-99)
--- NOTE | 2018-08-10 16:42 | ECHOF ---
Referral Reason:atrial fib MEASUREMENTS -------- HEIGHT: 172.7 cm WEIGHT: 96.6 kg BP: RVIDd: 3.0 cm (< 3.3) IVSd: 1.4 cm (0.6 - 1.1) LVIDd: 4.1 cm (3.9 - 5.3) LVPWd: 1.3 cm (0.6 - 1.1) IVSs: 1.6 cm LVIDs: 2.7 cm LVPWs: 1.4 cm LA Diam: 3.4 cm (2.7 - 3.8) Ao Diam: 3.4 cm (2.0 - 3.7) AV Cusp: 1.6 cm (1.5 - 2.6) LA Diam: 3.8 cm (2.7 - 3.8) MV EXCURSION: 16.963 mm (> 18.000) MV EF SLOPE: 66 mm/s (70 - 150) EPSS: 0.5 cm MV E Brendan: 0.55 m/s MV DecT: 128 ms MV A Brendan: 0.01 m/s MV E/A Ratio: 39.57 FINDINGS -------- Atrial fibrillation. This was a techncally difficult study with suboptimal views, , Lumason utilized for enhancement of im ages. The left ventricular size is normal. There is mild concentric left ventricular hypertrophy. Overa ll left ventricular systolic function is mild-moderately impaired with, an EF between 40 - 45 %. The right ventricle is normal in size. The left atrial size is normal. The right atrial size is normal. 5.0mg OF Lumason UTLIZED: 2 OR MORE WALL SEGMENTS NOT VISUALIZED. There is mild aortic valve sclerosis. There is no evidence of aortic regurgitation. Mild mitral regurgitation is present. The tricuspid valve was not well visualized. Unable to estimate RVSP due to inadequate TR jet spect ral doppler profile. The pulmonic valve was not well visualized. There is no pericardial effusion. Pleural Effusion with Fibrin. CONCLUSIONS -------- 1. Atrial fibrillation. 2. This was a techncally difficult study with suboptimal views, , Lumason utilized for enhancement of images. 3. The left ventricular size is normal. 4. There is mild concentric left ventricular hypertrophy. 5. Overall left ventricular systolic function is mild-moderately impaired with, an EF between 40 - 45 %. 6. The right ventricle is normal in size. 7. The left atrial size is normal. 8. The right atrial size is normal. 9. 5.0mg OF Lumason UTLIZED: 2 OR MORE WALL SEGMENTS NOT VISUALIZED. 10. There is mild aortic valve sclerosis. 11. Mild mitral regurgitation is present. 12. The tricuspid valve was not well visualized. 13. Unable to estimate RVSP due to inadequate TR jet spectral doppler profile. 14. The pulmonic valve was not well visualized. 15. There is no pericardial effusion. 16. Pleural Effusion with Fibrin. CRAPS DEALER: Vianca Rust RDCS
--- NOTE | 2018-08-10 17:16 | CT ---
EXAMINATION TYPE: CT chest w con DATE OF EXAM: 08/10/2018 COMPARISON: May 14, 2018 HISTORY: Patient having difficulty breathing with pleural effusion. CT DLP: 482.7 mGycm Automated exposure control for dose reduction was used. CONTRAST: CT scan of the chest is performed with IV Contrast, patient injected with 80 mL of Isovue 300. FINDINGS: There is essentially complete opacification left hemithorax related to very large left pleural effusi on. There is atelectasis of the left lung. There is some patchy interstitial infiltrate in the right upper lobe. There is no right-sided pleural effusion. Heart is slightly enlarged. There are no hilar masses. There is no mediastinal adenopathy. There is spurring in the thoracic spine. I see no bony de structive process. Bariatric surgery catheter noted at the gastric fundus. There is minimal pleural t hickening at the right posterior lung base. There is minimal atelectasis right posterior lung base. T here is 2.5 cm subcarinal lymph node that is increased compared to last exam. IMPRESSION: There is left-sided hydrothorax with complete atelectasis left lung. Mild interstitial i nfiltrate right upper lobe. No obstructing bronchial mass identified. Hydrothorax is a change compare d to last exam. There is subcarinal adenopathy increased compared to last exam.
[2018-08-10] MEDS: MORPHINE SULFATE 4 MG/ML SYRINGE IV PRN (17:40)
[2018-08-10 20:24] LABS: Glucose,Whole Blood 181 mg/dL (75-99)
[2018-08-10] MEDS: CHOLECALCIFEROL 1,000 UNIT TAB PO SCH (21:25)
[2018-08-10] MEDS: PRAVASTATIN SODIUM 20 MG TAB PO SCH (21:26)
[2018-08-11] MEDS: HEPARIN SOD,PORK IN 0.45% NACL 25,000 UNIT in 0.45% NACL 1 250ML.BAG IV SCH ×2 (02:48→16:31)
[2018-08-11 05:58] LABS: Glucose,Whole Blood 203 mg/dL (75-99)
[2018-08-11] MEDS: SODIUM CHLORIDE 0.9% 1,000 ML IV SCH ×2 (06:12→14:56)
[2018-08-11] MEDS: INSULIN ASPART (NovoLOG) 100 UNIT/ML VIAL SQ SCH ×4 (06:13→21:22)
[2018-08-11] MEDS: PANTOPRAZOLE 40 MG TABLET PO SCH (06:13)
[2018-08-11 07:11] LABS: Potassium 6.6 mmol/L (3.5-5.1)
[2018-08-11 07:13] LABS: Basophils # (A) 0.1 k/uL (0-0.2); Basophils % (A) 1 %; Eosinophils % (A) 0 %; HCT 36.4 % (34.0-46.0); HGB 10.6 gm/dL (11.4-16.0); Hypochromasia Marked; Lymphocytes # (A) 0.8 k/uL (1.0-4.8); Lymphocytes % (A) 7 %; MCH 28.6 pg (25.0-35.0); MCHC 29.2 g/dL (31.0-37.0); MCV 97.9 fL (80.0-100.0); Mean Platelet Volume 6.5; Monocytes # (A) 0.8 k/uL (0-1.0); Monocytes % (A) 7 %; Neutrophils % (A) 82 %; Platelet Count 421 k/uL (150-450); RBC 3.72 m/uL (3.80-5.40); RDW 14.8 % (11.5-15.5)
[2018-08-11 09:27] LABS: Glucose,Whole Blood 193 mg/dL (75-99)
[2018-08-11] MEDS ORDERED: SODIUM POLYSTYRENE SULFONATE 15 GM/60 ML BOTTLE PO ONE (09:37)
[2018-08-11] MEDS ORDERED: SODIUM POLYSTYRENE SULFONATE 15 GM/60 ML BOTTLE PO STA (09:37)
[2018-08-11] MEDS ORDERED: ALBUTEROL NEB (CONC) 2.5 MG/0.5 ML INHALATION ONE (09:37)
[2018-08-11] MEDS ORDERED: DEXTROSE 50%-WATER 50 ML SYRINGE IVP ONE (09:37)
[2018-08-11] MEDS ORDERED: INSULIN REGULAR 100 UNIT/ML VIAL IV ONE (09:37)
[2018-08-11] MEDS ORDERED: CALCIUM CHLORIDE 1 GM in SODIUM CHLORIDE 0.9% 50 ML IVPB ONE (10:00)
[2018-08-11] MEDS: AMIODARONE 200 MG TAB PO SCH ×3 (10:49→21:22)
[2018-08-11] MEDS: DULoxetine HCL 60 MG CAPSULE.DR PO SCH (10:50)
[2018-08-11] MEDS: lamoTRIgine 100 MG TAB PO SCH ×2 (10:50→21:21)
[2018-08-11] MEDS: GABAPENTIN 300 MG CAP PO SCH ×2 (10:50→21:21)
[2018-08-11] MEDS: METOPROLOL TARTRATE 25 MG TAB PO SCH ×4 (10:51→21:22)
[2018-08-11] MEDS: ANASTROZOLE 1 MG TAB PO SCH (10:52)
[2018-08-11 11:09] LABS: Glucose,Whole Blood 252 mg/dL (75-99)
--- NOTE | 2018-08-11 11:27 | P.PN ---
Subjective 68-year-old female admitted for lytic chest pain secondary to left-sided pleural effusion significant amount of pleural effusion will need therapy and diagnostic paracentesis, pulmonary was consulted. Patient also has A. fib with mildly elevated heart rate patient is still complaining of significant amount of pleuritic chest pain. 08/11/2018 Had an eye at length discussion with oncology as well as a pulmonary patient will undergo paracentesis today. Patient is hypokalemic probably contribution from a heparin drip. Patient will be started on D50 with 10 units of insulin along with calcium chloride and Kayexalate. Does have some shortness of breath Constitutional: Denied any fatigue denied any fever. Cardio vascular: denied any chest pain, palpitations Gastrointestinal denied any nausea vomiting Pulmonary: Reticulocyte chest pain as mentioned above Neurologic denied any new focal deficits All inpatient medications were reviewed and appropriate changes in these medications as dictated in the interval history and assessment and plan. Objective - Vital Signs Vital signs: Vital Signs Temp 97.1 F L 08/11/18 03:09 Pulse 100 08/11/18 11:19 Resp 18 08/11/18 03:09 BP 118/47 08/11/18 03:09 Pulse Ox 94 L 08/11/18 11:20 Intake & Output 08/10/18 08/11/18 08/11/18 18:59 06:59 18:59 Intake Total 850 120 Balance 850 120 Weight 101.5 kg Intake: Intake, IV Titration 250 Amount Heparin Sod,Pork in 0.45% 250 NaCl 25,000 unit In 0.45 % NaCl 1 250ml.bag @ 9 UNITS/KG/HR 9.34 mls/hr IV .Q24H [facility] Rx#: [id number] Oral 600 120 Other: Voiding Method Toilet # Voids 1 3 - Exam PHYSICAL EXAMINATION: GENERAL: The patient is alert and oriented x3, not in any acute distress. Well developed, well nourished. HEENT: Pupils are round and equally reacting to light. EOMI. No scleral icterus. No conjunctival pallor. Normocephalic, atraumatic. No pharyngeal erythema. No thyromegaly. CARDIOVASCULAR: S1 and S2 present. No murmurs, rubs, or gallops. PULMONARY: Decreased air rate in the left side andcracklesorwheezingonexam. ABDOMEN: Soft, nontender, nondistended, normoactive bowel sounds. No palpable organomegaly. MUSCULOSKELETAL: No joint swelling or deformity. EXTREMITIES: No cyanosis, clubbing, or pedal edema. NEUROLOGICAL: Gross neurological examination did not reveal any focal deficits. SKIN: No rashes. - Labs CBC & Chem 7: 08/11/18 06:29 08/11/18 07:35 Labs: Abnormal Lab Results - Last 24 Hours (Table) 08/10/18 08/10/18 08/10/18 Range/Units 11:28 16:24 20:22 WBC (3.8-10.6) k/uL RBC (3.80-5.40) m/uL Hgb (11.4-16.0) gm/dL MCHC (31.0-37.0) g/dL Neutrophils # (1.3-7.7) k/uL Lymphocytes # (1.0-4.8) k/uL APTT (22.0-30.0) sec Sodium (137-145) mmol/L Potassium (3.5-5.1) mmol/L Carbon Dioxide (22-30) mmol/L BUN (7-17) mg/dL Creatinine (0.52-1.04) mg/dL Glucose (74-99) mg/dL POC Glucose (mg/dL) 166 H 240 H 181 H (75-99) mg/dL Calcium (8.4-10.2) mg/dL 08/11/18 08/11/18 08/11/18 Range/Units 05:57 06:29 06:29 WBC 11.0 H (3.8-10.6) k/uL RBC 3.72 L (3.80-5.40) m/uL Hgb 10.6 L (11.4-16.0) gm/dL MCHC 29.2 L (31.0-37.0) g/dL Neutrophils # 9.0 H (1.3-7.7) k/uL Lymphocytes # 0.8 L (1.0-4.8) k/uL APTT 34.6 H (22.0-30.0) sec Sodium (137-145) mmol/L Potassium (3.5-5.1) mmol/L Carbon Dioxide (22-30) mmol/L BUN (7-17) mg/dL Creatinine (0.52-1.04) mg/dL Glucose (74-99) mg/dL POC Glucose (mg/dL) 203 H (75-99) mg/dL Calcium (8.4-10.2) mg/dL 08/11/18 08/11/18 08/11/18 Range/Units 06:29 07:35 09:26 WBC (3.8-10.6) k/uL RBC (3.80-5.40) m/uL Hgb (11.4-16.0) gm/dL MCHC (31.0-37.0) g/dL Neutrophils # (1.3-7.7) k/uL Lymphocytes # (1.0-4.8) k/uL APTT (22.0-30.0) sec Sodium 135 L (137-145) mmol/L Potassium 6.6 H* 7.2 H* (3.5-5.1) mmol/L Carbon Dioxide 18 L (22-30) mmol/L BUN 39 H (7-17) mg/dL Creatinine 1.38 H (0.52-1.04) mg/dL Glucose 174 H (74-99) mg/dL POC Glucose (mg/dL) 193 H (75-99) mg/dL Calcium 8.0 L (8.4-10.2) mg/dL 08/11/18 Range/Units 11:08 WBC (3.8-10.6) k/uL RBC (3.80-5.40) m/uL Hgb (11.4-16.0) gm/dL MCHC (31.0-37.0) g/dL Neutrophils # (1.3-7.7) k/uL Lymphocytes # (1.0-4.8) k/uL APTT (22.0-30.0) sec Sodium (137-145) mmol/L Potassium (3.5-5.1) mmol/L Carbon Dioxide (22-30) mmol/L BUN (7-17) mg/dL Creatinine (0.52-1.04) mg/dL Glucose (74-99) mg/dL POC Glucose (mg/dL) 252 H (75-99) mg/dL Calcium (8.4-10.2) mg/dL Assessment and Plan Plan: -Atrial fibrillation patient is was not rate controlled patient will be resumed on her home medications and the cardiology will evaluate the patient will continue with heparin at this time -Left-sided extensive pleural effusion with a refracture probably from the breast cancer and metastases. 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 -Hyperkalemia secondary to potassium supplementation of lisinopril, no renal failure patient will be started on IV fluids heparin is probably contributing to her hyperkalemia. The above-mentioned medications for hyperkalemia -History of cervical cancer for which patient is on hormone therapy at this time. Pleural effusion can be secondary to malignancy -Type 2 diabetes mellitus patient will be started on sliding scale will hold off her home regimen -Coronary artery disease -Gastroesophageal reflux disease -Hypertension -Osteoarthritis -Sleep apnea -Depression -Recent vaginal bleed secondary to uterine/cervical cancer. Will monitor for any GI bleed or vaginal bleed in this hospital. Patient does appear to have breast cancer as well
--- NOTE | 2018-08-11 12:12 | XR ---
EXAMINATION TYPE: XR chest 1V DATE OF EXAM: 08/11/2018 COMPARISON: Prior chest x-ray 08/08/2018 HISTORY: Status post thoracentesis TECHNIQUE: Single frontal view of the chest is obtained. FINDINGS: There is improved aeration in the left lung. Persistent basilar density noted. No pneumoth orax. Heart is obscured. IMPRESSION: No evident complication status post thoracentesis.
--- NOTE | 2018-08-11 14:05 | P.PN ---
Subjective Progress Note Date: 08/11/18 Principal diagnosis: Large left-sided pleural effusion with compressive atelectasis left lung A 68-year-old female patient with has both for worsening shortness of breath. The patient is very poor historian. She has underlying dementia. She cannot volunteer a lot of medical information. Based on my review of the records, this patient has history of left-sided breast cancer in this patient is status post mastectomy followed by hormonal therapy including Arimidex. The patient is a [facility] resident. The patient is coming into the hospital because of worsening shortness of breath. She also had an issue with atrial fibrillation. The chest x-ray showed a left-sided pleural effusion that seems to be somewhat loculated. Going back to the CAT scan of the chest that was done on , the patient had a pleural-based density measuring 2.6 x 1 cm in size in addition to a pathologic fracture in that area consistent with metastatic disease. No pneumothorax and there was only a tiny left-sided pleural effusion. Also, there was a 4.6 x 4 cm mass in the spleen and ill-defined linear soft tissue attenuation and omentum anterior to the spleen possibly representing an underlying omental metastases. For now, the patient is being considered for a malignant left-sided pleural effusion which probably has progressed since her earlier evaluation. Echocardiogram from 05/15/2018 was within normal limits and the patient a preserved LV function. The patient is comfortable at rest. She has a pulse ox of 96% on 2 L of oxygen by nasal cannula. She is afebrile. Her cardiac rhythm is atrial fibrillation with rapid ventricular response in the right bundle branch block pattern. No significant cough sputum production. Some discomfort along the left chest area. No reported aspiration. The patient is seen today 08/11/2018 in follow-up on the selective care unit. She is currently awake and alert in no acute distress. Rectal maintaining O2 saturations in the 90s on 2 L/m per nasal cannula. She's been afebrile. Hemodynamically stable. White count 11.0 hemoglobin 10.6. Potassium earlier 7.2, currently 5.9. Creatinine 1.39. Remains in atrial fibrillation better controlled. On amiodarone 200 mg 3 times a day. Heparin drip continues. The CAT scan revealed a large left-sided hydrothorax with complete atelectasis of the left lung. The plan is for thoracentesis today. Objective - Vital Signs Vital signs: Vital Signs Temp 97.1 F L 08/11/18 03:09 Pulse 115 H 08/11/18 11:55 Resp 18 08/11/18 03:09 BP 118/47 08/11/18 03:09 Pulse Ox 94 L 08/11/18 11:20 Intake & Output 08/10/18 08/11/18 08/11/18 18:59 06:59 18:59 Intake Total 850 120 Balance 850 120 Weight 101.5 kg Intake: Intake, IV Titration 250 Amount Heparin Sod,Pork in 0.45% 250 NaCl 25,000 unit In 0.45 % NaCl 1 250ml.bag @ 9 UNITS/KG/HR 9.34 mls/hr IV .Q24H [facility] Rx#: [id number] Oral 600 120 Other: Voiding Method Toilet # Voids 1 3 - Exam Appearance the patient is a no acute distress. She is alert and oriented 1-2. No acute respiratory distress. Resting comfortably in bed. On 2 L. Head exam was generally normal. There was no scleral icterus or corneal arcus. Mucous membranes were moist. Neck was supple and without jugular venous distension, thyromegaly, or carotid bruits. Carotids were easily palpable bilaterally. There was no adenopathy. Lungs sounds are markedly diminished on the left compared to the right. There is also some pain upon palpating the left chest wall area. Cardiac exam revealed the PMI to be normally situated and sized. The rhythm was regular and no extrasystoles were noted during several minutes of auscultation. The first and second heart sounds were normal and physiologic splitting of the second heart sound was noted. There were no murmurs, rubs, clicks, or gallops. Abdominal exam revealed normal bowel sounds. The abdomen was soft, non-tender, and without masses, organomegaly, or appreciable enlargement of the abdominal aorta. Examination of the extremities revealed easily palpable radial, femoral and pedal pulses. There was no cyanosis, clubbing or edema. Examination of the skin revealed no evidence of significant rashes, suspicious appearing nevi or other concerning lesions. Neurologic the no focal neurological deficits. - Labs CBC & Chem 7: 08/11/18 06:29 08/11/18 11:50 Labs: Abnormal Lab Results - Last 24 Hours (Table) 08/10/18 08/10/18 08/11/18 Range/Units 16:24 20:22 05:57 WBC (3.8-10.6) k/uL RBC (3.80-5.40) m/uL Hgb (11.4-16.0) gm/dL MCHC (31.0-37.0) g/dL Neutrophils # (1.3-7.7) k/uL Lymphocytes # (1.0-4.8) k/uL APTT (22.0-30.0) sec Sodium (137-145) mmol/L Potassium (3.5-5.1) mmol/L Carbon Dioxide (22-30) mmol/L BUN (7-17) mg/dL Creatinine (0.52-1.04) mg/dL Glucose (74-99) mg/dL POC Glucose (mg/dL) 240 H 181 H 203 H (75-99) mg/dL Calcium (8.4-10.2) mg/dL 08/11/18 08/11/18 08/11/18 Range/Units 06:29 06:29 06:29 WBC 11.0 H (3.8-10.6) k/uL RBC 3.72 L (3.80-5.40) m/uL Hgb 10.6 L (11.4-16.0) gm/dL MCHC 29.2 L (31.0-37.0) g/dL Neutrophils # 9.0 H (1.3-7.7) k/uL Lymphocytes # 0.8 L (1.0-4.8) k/uL APTT 34.6 H (22.0-30.0) sec Sodium 135 L (137-145) mmol/L Potassium 6.6 H* (3.5-5.1) mmol/L Carbon Dioxide 18 L (22-30) mmol/L BUN 39 H (7-17) mg/dL Creatinine 1.38 H (0.52-1.04) mg/dL Glucose 174 H (74-99) mg/dL POC Glucose (mg/dL) (75-99) mg/dL Calcium 8.0 L (8.4-10.2) mg/dL 08/11/18 08/11/18 08/11/18 Range/Units 07:35 09:26 11:08 WBC (3.8-10.6) k/uL RBC (3.80-5.40) m/uL Hgb (11.4-16.0) gm/dL MCHC (31.0-37.0) g/dL Neutrophils # (1.3-7.7) k/uL Lymphocytes # (1.0-4.8) k/uL APTT (22.0-30.0) sec Sodium (137-145) mmol/L Potassium 7.2 H* (3.5-5.1) mmol/L Carbon Dioxide (22-30) mmol/L BUN (7-17) mg/dL Creatinine (0.52-1.04) mg/dL Glucose (74-99) mg/dL POC Glucose (mg/dL) 193 H 252 H (75-99) mg/dL Calcium (8.4-10.2) mg/dL 08/11/18 Range/Units 11:50 WBC (3.8-10.6) k/uL RBC (3.80-5.40) m/uL Hgb (11.4-16.0) gm/dL MCHC (31.0-37.0) g/dL Neutrophils # (1.3-7.7) k/uL Lymphocytes # (1.0-4.8) k/uL APTT (22.0-30.0) sec Sodium (137-145) mmol/L Potassium 5.9 H (3.5-5.1) mmol/L Carbon Dioxide (22-30) mmol/L BUN (7-17) mg/dL Creatinine (0.52-1.04) mg/dL Glucose (74-99) mg/dL POC Glucose (mg/dL) (75-99) mg/dL Calcium (8.4-10.2) mg/dL Assessment and Plan Assessment: Impression: 1 large left-sided pleural effusion with compressive atelectasis of the left lung. This is likely that his presentation of a malignant pleural effusion. The patient had a pleural-based lesion along the left chest wall in addition to a pathological fracture consistent with metastatic disease. I think she has progressed and she has developed a large left-sided pleural effusion with interval atelectasis of the left lung and the patient is currently coming in for worsening shortness of breath. Status post thoracentesis of the left chest 08/11/2018 with 2400 ML's of bloody fluid returned. 2 atrial fibrillation, likely chronic, maintained on Eliquis on outpatient basis 3 history of breast cancer maintained on Arimidex on outpatient basis 4 history of uterine cancer 5 coronary artery disease with previous coronary intervention and stenting 6 dementia 7 history of bipolar disorder/depression 8 diabetes mellitus type 2 9 hypertension 10 osteoarthritis Plan The patient was seen and evaluated by Dr. Fields. He did go ahead and perform a left-sided thoracentesis with 2400 mL of bloody return. Fluid sent for analysis/cytology. Postprocedure chest x-ray reveals no evidence of pneumothorax. She remains off Eliquis and currently on a heparin drip. On oral amiodarone 200 mg 3 times a day and Lopressor 25 mg 4 times a day. We will continue to follow and make further recommendations based on her clinical status. I, the cosigning physician, performed a history & physical examination of the patient. Lungs sounds few scattered rhonchi, crackles in left base, diminished. Maintaining good O2 saturations in the 90s on 2 L/m per nasal cannula. I discussed the assessment and plan of care with my nurse practitioner, Sallie Peck. I attest to the above note as dictated by her.
--- NOTE | 2018-08-11 14:41 | PCN ---
PROCEDURE NOTE PROCEDURE NOTE: PREOPERATIVE DIAGNOSIS: Left-sided pleural effusion. POSTOPERATIVE DIAGNOSIS: Hemorrhagic left-sided pleural effusion. A time-out was completed verifying correct patient, procedure, site, positioning , and implant (s) or special equipment if applicable. Ultrasound guidance was not used and appropriate fluid pocket was identified and marked. Patient was positioned, prepped and draped in usual sterile fashion. Lidocaine was used to anesthetize the area. A Thoracentesis catheter was introduced into the pleural space and fluid was removed. Blood loss was none. A chest x-ray was ordered to evaluate for pneumothorax. Total Fluid Removed 2.4 L Color of Fluid: Hemorrhagic pleural effusion. Patient tolerated the procedure well and there were no complications, no bleeding, no pneumothorax. MMODL / IJN: [id number] /
[2018-08-11] MEDS: methylPREDNISolone SOD SUCCI 40 MG/ML 1 ML VIAL IV SCH ×2 (15:03→21:22)
[2018-08-11] MEDS: IPRATROPIUM-ALBUTEROL 3 ML NEB INHALATION SCH ×2 (15:50→19:04)
[2018-08-11 15:51] LABS: Color,BF Red
[2018-08-11 15:52] LABS: Appearance,BF Bloody; Nucleated Cells, Body Fluid 500 /uL; RBC, Body Fluid 63100 /uL
[2018-08-11 15:53] LABS: Mononuclear WBC,Body Fluid 19 %; Polynuclear WBC,Body Fluid 81 %; Total Cells Counted,Body Fluid 100
[2018-08-11 16:59] LABS: Glucose,Whole Blood 212 mg/dL (75-99)
[2018-08-11 19:49] LABS: Total Protein, Body Fluid 3600 mg/dL
[2018-08-11 20:56] LABS: Glucose,Whole Blood 185 mg/dL (75-99)
[2018-08-11] MEDS: PRAVASTATIN SODIUM 20 MG TAB PO SCH (21:21)
[2018-08-11] MEDS: CHOLECALCIFEROL 1,000 UNIT TAB PO SCH (21:22)
[2018-08-11] MEDS: LIDOCAINE 5% PATCH TOPICAL SCH (23:54)
--- NOTE | 2018-08-12 00:14 | P.CONS ---
History of Present Illness - Reason for Consult Consult date: 08/11/18 History of breast and ovarian cancer. Pleural effusion, splenic, rib mets - History of Present Illness The patient is a 68-year-old white female with multiple medical problems. The patient has significant dementia, and is an [facility] resident. She was initially seen in consultation in 05/31. At that time the patient was not able to provide any significant history, information was obtained from the [facility] EMR. This is as noted below. the patient follows with Dr. Hernandez, full details of the malignancy history are unknown but, she is taking Arimidex. This is typically a hormone receptor positive breast cancer treatment. Chart review from this EMR summarized here: 06/29-ER visit for chest pain, med list includes arimidex, no PMH, PSH documents hysterectomy 02/15/17-CT brain done, documents Hx: breast cancer 04/01/17-CT CAP done, documents Hx: ovarian, uterine and breast cancer, reports no changes to suggest metastatic disease, uterus and ovaries are surgically absent 07/31-xrays after fall, nothing in reports suggests mets to bone 02/14/18-Bone density reports osteopenia. CT CAP documents Hx breast cancer, reports shotty adenpathy in chest, hepatic dome liver lesion, lesion in spleen and possible omental mets. twice in Feb 2018-multiple xrays due to falls, no reported bone mets 04/26/18-abd US-confirms spleen mass, documents "no procedure" 05/13/18-info from [facility] documented in notes pt has had radiation, unknown last treatment, pt receives injections every 6 months, no documentation of last injection. CTA neg for PE, Brain CT neg for mets. The patient had a short admission and 05/30 and was discharged back to [facility]. She was recently admitted this time with increasing shortness of breath. This had occurred over the last week or so. On evaluation she was noted to have a whiteout of the left lung due to a large pleural effusion. Imaging revealed evidence of restrictive metastasis in the left rib cage, as well as evidence of a 4 cm plus metastatic-type lesion involving the spleen. Consult was therefore placed a further evaluation and recommendations. The patient was again unable to provide any history. I did speak to Dr. Hernandez, who stated that the patient was diagnosed with left- sided breast cancer, as well as a left ovarian cancer in late 2015. Ovarian cancer was initial diagnosis, and the patient underwent radical surgery. Around this time the breast cancer also discovered. This was hormone receptor positive, and HER-2/verenice negative. The patient underwent adjuvant chemotherapy for ovarian cancer with carboplatin and Taxol, a regimen which is also active against breast cancer. Therefore she essentially had alena adjuvant chemotherapy for her breast cancer at the same time. At the completion of chemotherapy, she underwent surgery for her breast cancer and was found to have evidence of his daughter disease in the breast and lymph node. This was in early 2016. She then received radiation, and was placed on Arimidex. The patient was noted to have the rib lesion, as well as a splenic lesion in . Even prior to that, CA-125 had increased into the 500 range in 02/28. In 03/30, when she was evaluated by Dr. Hernandez, it was greater than > 1000. The patient was referred for a biopsy, but apparently did not have that done. She did not follow-up with Dr. Hernandez subsequently. Review of Systems Very limited information available from pt due to her dementia. Mostly obtained from EMR Constitutional: Reports fatigue, Reports poor appetite, Reports weakness Eyes: denies blurred vision, denies pain Ears: deny: decreased hearing, ear discharge, earache, tinnitus Ears, nose, mouth and throat: Denies headache, Denies sore throat Breasts: Reports as per HPI Cardiovascular: Reports shortness of breath Respiratory: Reports dyspnea Gastrointestinal: Denies abdominal pain, Denies diarrhea, Denies nausea, Denies vomiting Genitourinary: Reports urge incontinence Menstruation: Reports postmenopausal Musculoskeletal: Reports muscle weakness Integumentary: Denies pruritus, Denies rash Neurological: Reports confusion, Reports memory loss, Reports weakness Psychiatric: Reports confusion, Reports memory loss Endocrine: Reports fatigue Hematologic/Lymphatic: Reports as per HPI Past Medical History Past Medical History: Atrial Fibrillation, Coronary Artery Disease (CAD), Cancer , Chest Pain / Angina, Diabetes Mellitus, GERD/Reflux, Hypertension, Osteoarthritis (OA), Sleep Apnea/CPAP/BIPAP Additional Past Medical History / Comment(s): Breast cancer, coronary artery disease, diabetes mellitus, hypertension, obstructive sleep apnea, osteoarthritis, bipolar disorder/manic disorder/depression, history of uterine cancer, history of recurrent urine checked infections, hypertension, varicose veins, dementia. History of Any Multi-Drug Resistant Organisms: None Reported Past Surgical History: Adenoidectomy, Section, Cholecystectomy, Heart Catheterization With Stent, Hysterectomy, Tonsillectomy, Tubal Ligation Additional Past Surgical History / Comment(s): PER PAST HX IN 2008 HEART CATH(5 STENTS),KAMRAN CARPAL TUNNEL,PAIN [facility] INJ(BACK)/RADIO FREQ FACET BLOCK/SACRAL X2. Past Anesthesia/Blood Transfusion Reactions: Unable to Obtain Date of Last Stent Placement:: UNK Past Psychological History: Bipolar, Depression Smoking Status: Never smoker Past Alcohol Use History: None Reported Past Drug Use History: None Reported - Past Family History Father Family Medical History: Unable to Obtain Mother Family Medical History: Unable to Obtain Medications and Allergies Home Medications Medication Instructions Recorded Confirmed Type Anastrozole [Arimidex] 1 mg PO DAILY 06/22/16 08/08/18 History Cholecalciferol [Vitamin D3] 4,000 unit PO HS 06/22/16 08/08/18 History DULoxetine HCL [Cymbalta] 60 mg PO DAILY 06/22/16 08/08/18 History Insulin Glargine [Lantus] 20 unit SQ DAILY 06/22/16 08/08/18 History Potassium Chloride ER [K-Dur 10] 10 meq PO BID 06/22/16 08/08/18 History lamoTRIgine [LaMICtal] 150 mg PO Q12H 06/22/16 08/08/18 History Acetaminophen Tab [Tylenol] 650 mg PO Q4HR PRN #0 tab 06/25/16 08/08/18 Rx Amiodarone [Cordarone] 200 mg PO DAILY 07/26/17 08/08/18 History Apixaban [Eliquis] 5 mg PO BID 07/26/17 08/08/18 History Bisacodyl [Dulcolax] 10 mg RECTAL DAILY PRN 07/26/17 08/08/18 History Gabapentin [Neurontin] 300 mg PO BID 07/26/17 08/08/18 History INSULIN LISPRO (HumaLOG) [humaLOG] 3 units SQ AC-TID@07,12,17 07/26/17 08/08/18 History Magnesium Hydroxide [Milk of 30 ml PO HS PRN 07/26/17 08/08/18 History Magnesia] Magnesium Oxide [Mag-Ox] 400 mg PO HS 07/26/17 08/08/18 History Nitroglycerin Sl Tabs [Nitrostat] 0.4 mg SUBLINGUAL Q5M PRN 07/26/17 08/08/18 History Pravastatin Sodium [Pravachol] 20 mg PO HS@199907/26/17 08/08/18 History Lisinopril [Zestril] 5 mg PO DAILY 08/08/18 08/08/18 History Omeprazole 20 mg PO DAILY 08/08/18 08/08/18 History Allergies Allergy/AdvReac Type Severity Reaction Status Date / Time lorazepam [From Ativan] Allergy Unknown Verified 08/08/18 23:25 nabumetone [From Relafen] Allergy Rash/Hives Verified 08/08/18 23:25 Sulfa (Sulfonamide Allergy Rash/Hives Verified 08/08/18 23:25 Antibiotics) Physical Exam Vitals: Vital Signs Temp Pulse Pulse Resp BP Pulse Ox 08/11/18 15:59 110 H 08/11/18 15:50 110 H 20 95 08/11/18 12:00 98.3 F 104 H 18 82/63 94 L 08/11/18 11:55 115 H 08/11/18 11:20 94 L 08/11/18 11:19 100 08/11/18 09:20 98.2 F 105 H 16 91/65 95 08/11/18 03:09 97.1 F L 101 H 18 118/47 94 L 08/10/18 23:58 95 16 93/62 95 08/10/18 22:46 102 H 101/65 08/10/18 21:30 98.1 F 97 19 92/48 94 L Intake and Output 08/11/18 08/11/18 08/11/18 06:59 14:59 22:59 Intake Total 140 185.175 Output Total 600 Balance -460 185.175 Intake: Intake, IV Titration 185.175 Amount Heparin Sod,Pork in 0.45% 185.175 NaCl 25,000 unit In 0.45 % NaCl 1 250ml.bag @ 9 UNITS/KG/HR 9.34 mls/hr IV .Q24H [facility] Rx#: [id number] Oral 140 Output: Urine 600 Other: Voiding Method Toilet # Voids 3 Weight 101.5 kg - Constitutional General appearance: no acute distress - EENT Eyes: EOMI, PERRLA ENT: hearing grossly normal, normal oropharynx - Neck Neck: no lymphadenopathy Thyroid: bilateral: normal size - Respiratory Respiratory: left: diminished - Cardiovascular Rhythm: regular Heart sounds: normal: S1, S2 - Gastrointestinal General gastrointestinal: normal bowel sounds, soft - Integumentary Integumentary: normal - Neurologic Neurologic: CNII-XII intact - Musculoskeletal Musculoskeletal: generalized weakness, strength equal bilaterally - Psychiatric Confused, poor recall slow affect Results CBC & Chem 7: 08/11/18 06:29 08/11/18 17:00 Labs: Abnormal Lab Results - Last 24 Hours (Table) 08/10/18 08/11/18 08/11/18 Range/Units 20:22 05:57 06:29 WBC 11.0 H (3.8-10.6) k/uL RBC 3.72 L (3.80-5.40) m/uL Hgb 10.6 L (11.4-16.0) gm/dL MCHC 29.2 L (31.0-37.0) g/dL Neutrophils # 9.0 H (1.3-7.7) k/uL Lymphocytes # 0.8 L (1.0-4.8) k/uL APTT (22.0-30.0) sec Sodium (137-145) mmol/L Potassium (3.5-5.1) mmol/L Carbon Dioxide (22-30) mmol/L BUN (7-17) mg/dL Creatinine (0.52-1.04) mg/dL Glucose (74-99) mg/dL POC Glucose (mg/dL) 181 H 203 H (75-99) mg/dL Calcium (8.4-10.2) mg/dL 08/11/18 08/11/18 08/11/18 Range/Units 06:29 06:29 07:35 WBC (3.8-10.6) k/uL RBC (3.80-5.40) m/uL Hgb (11.4-16.0) gm/dL MCHC (31.0-37.0) g/dL Neutrophils # (1.3-7.7) k/uL Lymphocytes # (1.0-4.8) k/uL APTT 34.6 H (22.0-30.0) sec Sodium 135 L (137-145) mmol/L Potassium 6.6 H* 7.2 H* (3.5-5.1) mmol/L Carbon Dioxide 18 L (22-30) mmol/L BUN 39 H (7-17) mg/dL Creatinine 1.38 H (0.52-1.04) mg/dL Glucose 174 H (74-99) mg/dL POC Glucose (mg/dL) (75-99) mg/dL Calcium 8.0 L (8.4-10.2) mg/dL 08/11/18 08/11/18 08/11/18 Range/Units 09:26 11:08 11:50 WBC (3.8-10.6) k/uL RBC (3.80-5.40) m/uL Hgb (11.4-16.0) gm/dL MCHC (31.0-37.0) g/dL Neutrophils # (1.3-7.7) k/uL Lymphocytes # (1.0-4.8) k/uL APTT (22.0-30.0) sec Sodium (137-145) mmol/L Potassium 5.9 H (3.5-5.1) mmol/L Carbon Dioxide (22-30) mmol/L BUN (7-17) mg/dL Creatinine (0.52-1.04) mg/dL Glucose (74-99) mg/dL POC Glucose (mg/dL) 193 H 252 H (75-99) mg/dL Calcium (8.4-10.2) mg/dL 08/11/18 08/11/18 08/11/18 Range/Units 16:58 17:00 17:00 WBC (3.8-10.6) k/uL RBC (3.80-5.40) m/uL Hgb (11.4-16.0) gm/dL MCHC (31.0-37.0) g/dL Neutrophils # (1.3-7.7) k/uL Lymphocytes # (1.0-4.8) k/uL APTT 31.2 H (22.0-30.0) sec Sodium (137-145) mmol/L Potassium 5.8 H (3.5-5.1) mmol/L Carbon Dioxide (22-30) mmol/L BUN (7-17) mg/dL Creatinine (0.52-1.04) mg/dL Glucose (74-99) mg/dL POC Glucose (mg/dL) 212 H (75-99) mg/dL Calcium (8.4-10.2) mg/dL Chest x-ray: report reviewed CT scan - chest: report reviewed Assessment and Plan (1) Pleural effusion, left Narrative/Plan: This is felt to be the cause of her presentation. This is most likely malignant. Per my discussion with Dr Hernandez, it was felt that is would be appropriate to drain, for comfort as well as to establish a diagnosis. case was also discussed in detail with IM, and Pulmonary. she did undergo thoracentesis, with 2 + L of sanguineous fluid drained. - await cytology - If rapid recurrence occurs, it would be reasonable to consider a drain placement , even from the comfort standpoint Current Visit: Yes Status: Acute Code(s): J90 - PLEURAL EFFUSION, NOT ELSEWHERE CLASSIFIED SNOMED Code(s): 86186648 (2) Breast cancer Narrative/Plan: Diagnostic and therapeutic circumstances as described. The pt has continued on Arimidex. She has clinically progressive metastatic disease. Check breast tumor markers. Current Visit: No Status: Acute Priority: Medium Code(s): C50.919 - MALIGNANT NEOPLASM OF UNSP SITE OF UNSPECIFIED FEMALE BREAST SNOMED Code(s): 298861289 (3) Ovarian cancer Narrative/Plan: Diagnostic and therapeutic circumstances as described. Her current presentation is more indicative of ovarian cancer recurrence, especially given marked Ca [address] Hernandez Check Ca 125 Current Visit: Yes Status: Acute Code(s): C56.9 - MALIGNANT NEOPLASM OF UNSPECIFIED OVARY SNOMED Code(s): 074917472 Plan: A biopsy was ordered by Dr Hernandez in 03/30 as the pt appeared to have metastatic progression at that time, and she had a h/o 2 malignancies in the past. This was not done, as noted - await cytology from pleural fluid and tumor markers - assuming metastatic progression is established, treatment options may be limited for her based on her PS and the fact of [facility] residency. Metastatic ovarian ca would likely be harder to treat, as it would require more aggressive regimens generally. Depending on cytology and her clinical status, comfort care may need to be considered. If the pt is stable, she can f/u with Dr Hernandez to discuss further management as appropriate Multiple other medical problems. Defer to IM and other consultants for further management
[2018-08-12] MEDS: IPRATROPIUM-ALBUTEROL 3 ML NEB INHALATION SCH ×6 (00:15→19:25)
[2018-08-12] MEDS ORDERED: HALOPERIDOL LACTATE 5 MG/ML 1 ML VIAL IM PRN (03:35)
[2018-08-12 06:27] LABS: Basophils % (A) 0 %; Eosinophils % (A) 0 %; HCT 31.9 % (34.0-46.0); HGB 9.7 gm/dL (11.4-16.0); Hypochromasia Marked; Lymphocytes # (A) 0.3 k/uL (1.0-4.8); Lymphocytes % (A) 4 %; MCH 28.1 pg (25.0-35.0); MCHC 30.3 g/dL (31.0-37.0); Mean Platelet Volume 6.5; Monocytes # (A) 0.1 k/uL (0-1.0); Monocytes % (A) 2 %; Neutrophils % (A) 93 %; Platelet Count 360 k/uL (150-450); RBC 3.43 m/uL (3.80-5.40); RDW 14.7 % (11.5-15.5); WBC 6.5 k/uL (3.8-10.6)
[2018-08-12 06:28] LABS: Glucose,Whole Blood 211 mg/dL (75-99)
[2018-08-12 06:40] LABS: Calcium 8.1 mg/dL (8.4-10.2)
[2018-08-12 06:54] LABS: Potassium 6.3 mmol/L (3.5-5.1)
[2018-08-12] MEDS: PANTOPRAZOLE 40 MG TABLET PO SCH (06:57)
[2018-08-12] MEDS: INSULIN ASPART (NovoLOG) 100 UNIT/ML VIAL SQ SCH ×4 (06:57→20:45)
[2018-08-12] MEDS: SODIUM CHLORIDE 0.9% 1,000 ML IV SCH ×5 (06:58→20:36)
[2018-08-12] MEDS ORDERED: SODIUM POLYSTYRENE SULFONATE 15 GM/60 ML BOTTLE PO STA ×2 (08:06→17:25)
[2018-08-12] MEDS: lamoTRIgine 100 MG TAB PO SCH ×2 (09:56→20:36)
[2018-08-12] MEDS: DULoxetine HCL 60 MG CAPSULE.DR PO SCH (09:57)
[2018-08-12] MEDS: AMIODARONE 200 MG TAB PO SCH ×3 (09:57→20:36)
[2018-08-12] MEDS: GABAPENTIN 300 MG CAP PO SCH ×2 (09:58→20:36)
[2018-08-12] MEDS: METOPROLOL TARTRATE 25 MG TAB PO SCH ×3 (09:58→19:04)
[2018-08-12] MEDS: methylPREDNISolone SOD SUCCI 40 MG/ML 1 ML VIAL IV SCH (09:58)
[2018-08-12] MEDS: ANASTROZOLE 1 MG TAB PO SCH (09:58)
[2018-08-12] MEDS: HEPARIN SOD,PORK IN 0.45% NACL 25,000 UNIT in 0.45% NACL 1 250ML.BAG IV SCH (10:54)
[2018-08-12 11:29] LABS: Glucose,Whole Blood 331 mg/dL (75-99)
[2018-08-12] MEDS: APIXABAN 5 MG TAB PO SCH ×2 (12:56→20:36)
--- NOTE | 2018-08-12 14:12 | P.PN ---
Subjective Progress Note Date: 08/12/18 Principal diagnosis: Large left-sided pleural effusion with compressive atelectasis left lung A 68-year-old female patient with has both for worsening shortness of breath. The patient is very poor historian. She has underlying dementia. She cannot volunteer a lot of medical information. Based on my review of the records, this patient has history of left-sided breast cancer in this patient is status post mastectomy followed by hormonal therapy including Arimidex. The patient is a [facility] resident. The patient is coming into the hospital because of worsening shortness of breath. She also had an issue with atrial fibrillation. The chest x-ray showed a left-sided pleural effusion that seems to be somewhat loculated. Going back to the CAT scan of the chest that was done on , the patient had a pleural-based density measuring 2.6 x 1 cm in size in addition to a pathologic fracture in that area consistent with metastatic disease. No pneumothorax and there was only a tiny left-sided pleural effusion. Also, there was a 4.6 x 4 cm mass in the spleen and ill-defined linear soft tissue attenuation and omentum anterior to the spleen possibly representing an underlying omental metastases. For now, the patient is being considered for a malignant left-sided pleural effusion which probably has progressed since her earlier evaluation. Echocardiogram from 05/15/2018 was within normal limits and the patient a preserved LV function. The patient is comfortable at rest. She has a pulse ox of 96% on 2 L of oxygen by nasal cannula. She is afebrile. Her cardiac rhythm is atrial fibrillation with rapid ventricular response in the right bundle branch block pattern. No significant cough sputum production. Some discomfort along the left chest area. No reported aspiration. The patient is seen today 08/11/2018 in follow-up on the selective care unit. She is currently awake and alert in no acute distress. Rectal maintaining O2 saturations in the 90s on 2 L/m per nasal cannula. She's been afebrile. Hemodynamically stable. White count 11.0 hemoglobin 10.6. Potassium earlier 7.2, currently 5.9. Creatinine 1.39. Remains in atrial fibrillation better controlled. On amiodarone 200 mg 3 times a day. Heparin drip continues. The CAT scan revealed a large left-sided hydrothorax with complete atelectasis of the left lung. The plan is for thoracentesis today. Patient is seen today 08/12/2017 in follow-up on the selective care unit. He is currently resting comfortably in bed. He is maintaining O2 saturations in the upper 90s on 2 L/m per nasal cannula. She's afebrile. Hemodynamically stable. Thoracentesis cultures are pending. Count 6.5. Hemoglobin 9.7. Potassium 6.3. Creatinine 1.12. She is currently on DuoNeb inhalations she's been transitioned to Eliquis. Objective - Vital Signs Vital signs: Vital Signs Temp 98.1 F 08/12/18 11:00 Pulse 112 H 08/12/18 11:41 Resp 18 08/12/18 11:00 BP 108/58 08/12/18 11:00 Pulse Ox 97 08/12/18 11:00 Intake & Output 08/11/18 08/12/18 08/12/18 18:59 06:59 18:59 Intake Total 832.965 6474.113 386.887 Output Total 600 150 Balance -372.827 0850.113 236.887 Weight 102 kg Intake: IV 1200 Sodium Chloride 0.9% 1, 1200 000 ml @ 100 mls/hr IV . Q10H [facility] Rx#:[id number] Intake, IV Titration 185.175 223.113 26.887 Amount Heparin Sod,Pork in 0.45% 185.175 223.113 26.887 NaCl 25,000 unit In 0.45 % NaCl 1 250ml.bag @ 9 UNITS/KG/HR 9.34 mls/hr IV .Q24H [facility] Rx#: [id number] Oral 140 120 360 Output: Urine 600 150 Other: Voiding Method Toilet Bedside Commode # Voids 1 - Exam Appearance the patient is a no acute distress. She is alert and oriented 1-2. On 2 L. Head exam was generally normal. There was no scleral icterus or corneal arcus. Mucous membranes were moist. Neck was supple and without jugular venous distension, thyromegaly, or carotid bruits. Carotids were easily palpable bilaterally. There was no adenopathy. Lungs sounds are markedly diminished on the left compared to the right. There is also some pain upon palpating the left chest wall area. Cardiac exam revealed the PMI to be normally situated and sized. The rhythm was regular and no extrasystoles were noted during several minutes of auscultation. The first and second heart sounds were normal and physiologic splitting of the second heart sound was noted. There were no murmurs, rubs, clicks, or gallops. Abdominal exam revealed normal bowel sounds. The abdomen was soft, non-tender, and without masses, organomegaly, or appreciable enlargement of the abdominal aorta. Examination of the extremities revealed easily palpable radial, femoral and pedal pulses. There was no cyanosis, clubbing or edema. Examination of the skin revealed no evidence of significant rashes, suspicious appearing nevi or other concerning lesions. Neurologic the no focal neurological deficits. - Labs CBC & Chem 7: 08/12/18 05:35 08/12/18 05:35 Labs: Abnormal Lab Results - Last 24 Hours (Table) 08/11/18 08/11/18 08/11/18 Range/Units 11:50 16:58 17:00 RBC (3.80-5.40) m/uL Hgb (11.4-16.0) gm/dL Hct (34.0-46.0) % MCHC (31.0-37.0) g/dL Lymphocytes # (1.0-4.8) k/uL APTT (22.0-30.0) sec Sodium (137-145) mmol/L Potassium 5.8 H (3.5-5.1) mmol/L BUN (7-17) mg/dL Creatinine (0.52-1.04) mg/dL Glucose (74-99) mg/dL POC Glucose (mg/dL) 212 H (75-99) mg/dL Hemoglobin A1c 7.0 H (4.0-6.0) % Calcium (8.4-10.2) mg/dL CA 15-3 Antigen (0.0-32.3) U/mL CA 125 Antigen (0.0-30.1) U/mL 08/11/18 08/11/18 08/12/18 Range/Units 17:00 20:51 05:35 RBC 3.43 L (3.80-5.40) m/uL Hgb 9.7 L (11.4-16.0) gm/dL Hct 31.9 L (34.0-46.0) % MCHC 30.3 L (31.0-37.0) g/dL Lymphocytes # 0.3 L (1.0-4.8) k/uL APTT 31.2 H (22.0-30.0) sec Sodium (137-145) mmol/L Potassium (3.5-5.1) mmol/L BUN (7-17) mg/dL Creatinine (0.52-1.04) mg/dL Glucose (74-99) mg/dL POC Glucose (mg/dL) 185 H (75-99) mg/dL Hemoglobin A1c (4.0-6.0) % Calcium (8.4-10.2) mg/dL CA 15-3 Antigen (0.0-32.3) U/mL CA 125 Antigen (0.0-30.1) U/mL 08/12/18 08/12/18 08/12/18 Range/Units 05:35 05:35 06:23 RBC (3.80-5.40) m/uL Hgb (11.4-16.0) gm/dL Hct (34.0-46.0) % MCHC (31.0-37.0) g/dL Lymphocytes # (1.0-4.8) k/uL APTT (22.0-30.0) sec Sodium 132 L (137-145) mmol/L Potassium 6.3 H* (3.5-5.1) mmol/L BUN 38 H (7-17) mg/dL Creatinine 1.12 H (0.52-1.04) mg/dL Glucose 222 H (74-99) mg/dL POC Glucose (mg/dL) 211 H (75-99) mg/dL Hemoglobin A1c (4.0-6.0) % Calcium 8.1 L (8.4-10.2) mg/dL CA 15-3 Antigen 95.5 H (0.0-32.3) U/mL CA 125 Antigen 2318.2 H (0.0-30.1) U/mL 08/12/18 08/12/18 Range/Units 11:20 13:19 RBC (3.80-5.40) m/uL Hgb (11.4-16.0) gm/dL Hct (34.0-46.0) % MCHC (31.0-37.0) g/dL Lymphocytes # (1.0-4.8) k/uL APTT 43.7 H (22.0-30.0) sec Sodium (137-145) mmol/L Potassium (3.5-5.1) mmol/L BUN (7-17) mg/dL Creatinine (0.52-1.04) mg/dL Glucose (74-99) mg/dL POC Glucose (mg/dL) 331 H (75-99) mg/dL Hemoglobin A1c (4.0-6.0) % Calcium (8.4-10.2) mg/dL CA 15-3 Antigen (0.0-32.3) U/mL CA 125 Antigen (0.0-30.1) U/mL Microbiology - Last 24 Hours (Table) 08/11/18 12:00 Gram Stain - Preliminary Pleural Fluid Body Fluid Culture - Preliminary Assessment and Plan Assessment: Impression: 1 large left-sided pleural effusion with compressive atelectasis of the left lung. This is likely that his presentation of a malignant pleural effusion. The patient had a pleural-based lesion along the left chest wall in addition to a pathological fracture consistent with metastatic disease. I think she has progressed and she has developed a large left-sided pleural effusion with interval atelectasis of the left lung and the patient is currently coming in for worsening shortness of breath. Status post thoracentesis of the left chest 08/11/2018 with 2400 ML's of bloody fluid returned. Analysis reveals a total protein of 3.6. LDH 1030. Sedated. Cytology pending. 2 atrial fibrillation, likely chronic, maintained on Eliquis on outpatient basis 3 history of breast cancer maintained on Arimidex on outpatient basis 4 history of uterine cancer 5 coronary artery disease with previous coronary intervention and stenting 6 dementia 7 history of bipolar disorder/depression 8 diabetes mellitus type 2 9 hypertension 10 osteoarthritis Plan The patient was seen and evaluated by Dr. Fields. She is currently stable from the pulmonary standpoint. Pleural fluid is exudative in nature. Await pathology. Overall prognosis remains quite poor. We will continue to follow and make further recommendations based on her clinical status. I, the cosigning physician, performed a history & physical examination of the patient. Lungs sounds few scattered rhonchi, crackles in left base, diminished. Maintaining good O2 saturations in the 90s on 2 L/m per nasal cannula. I discussed the assessment and plan of care with my nurse practitioner, Sallie Peck. I attest to the above note as dictated by her.
--- NOTE | 2018-08-12 16:05 | P.PN ---
Subjective 68-year-old female admitted for lytic chest pain secondary to left-sided pleural effusion significant amount of pleural effusion will need therapy and diagnostic paracentesis, pulmonary was consulted. Patient also has A. fib with mildly elevated heart rate patient is still complaining of significant amount of pleuritic chest pain. 08/11/2018 Had an eye at length discussion with oncology as well as a pulmonary patient will undergo paracentesis today. Patient is hypokalemic probably contribution from a heparin drip. Patient will be started on D50 with 10 units of insulin along with calcium chloride and Kayexalate. Does have some shortness of breath 08/12/2018 Patient potassium continuous to be high patient received one more dose of capsulate patient chest pain improved respiratory status improved but her overall prognosis is extremely poor patient appears to ovarian cancer and breast cancer patient is being resumed on Eliquis as there is no further intervention that is being planned by pulmonary patient still has some moderate pleural effusion on the left side shouldn't breast cancer markers are definitely elevated patient underwent chemotherapy for ovarian cancer with carboplatinum and Taxol Constitutional: Denied any fatigue denied any fever. Cardio vascular: denied any chest pain, palpitations Gastrointestinal denied any nausea vomiting Pulmonary: As mentioned above Neurologic denied any new focal deficits All inpatient medications were reviewed and appropriate changes in these medications as dictated in the interval history and assessment and plan. Objective - Vital Signs Vital signs: Vital Signs Temp 98.1 F 08/12/18 11:00 Pulse 106 H 08/12/18 15:49 Resp 18 08/12/18 15:49 BP 108/58 08/12/18 11:00 Pulse Ox 96 08/12/18 15:49 Intake & Output 08/11/18 08/12/18 08/12/18 18:59 06:59 18:59 Intake Total 055.257 1854.113 386.887 Output Total 600 150 Balance -881.594 5554.113 236.887 Weight 102 kg Intake: IV 1200 Sodium Chloride 0.9% 1, 1200 000 ml @ 100 mls/hr IV . Q10H [facility] Rx#:[id number] Intake, IV Titration 185.175 223.113 26.887 Amount Heparin Sod,Pork in 0.45% 185.175 223.113 26.887 NaCl 25,000 unit In 0.45 % NaCl 1 250ml.bag @ 9 UNITS/KG/HR 9.34 mls/hr IV .Q24H [facility] Rx#: [id number] Oral 140 120 360 Output: Urine 600 150 Other: Voiding Method Toilet Bedside Commode # Voids 1 - Exam PHYSICAL EXAMINATION: GENERAL: The patient is alert and oriented x3, not in any acute distress. Well developed, well nourished. HEENT: Pupils are round and equally reacting to light. EOMI. No scleral icterus. No conjunctival pallor. Normocephalic, atraumatic. No pharyngeal erythema. No thyromegaly. CARDIOVASCULAR: S1 and S2 present. No murmurs, rubs, or gallops. PULMONARY: Good air entry bilateral lung smith no wheezing or crackles ABDOMEN: Soft, nontender, nondistended, normoactive bowel sounds. No palpable organomegaly. MUSCULOSKELETAL: No joint swelling or deformity. EXTREMITIES: No cyanosis, clubbing, or pedal edema. NEUROLOGICAL: Gross neurological examination did not reveal any focal deficits. SKIN: No rashes. - Labs CBC & Chem 7: 08/12/18 05:35 08/12/18 05:35 Labs: Abnormal Lab Results - Last 24 Hours (Table) 08/11/18 08/11/18 08/11/18 Range/Units 11:50 16:58 17:00 RBC (3.80-5.40) m/uL Hgb (11.4-16.0) gm/dL Hct (34.0-46.0) % MCHC (31.0-37.0) g/dL Lymphocytes # (1.0-4.8) k/uL APTT (22.0-30.0) sec Sodium (137-145) mmol/L Potassium 5.8 H (3.5-5.1) mmol/L BUN (7-17) mg/dL Creatinine (0.52-1.04) mg/dL Glucose (74-99) mg/dL POC Glucose (mg/dL) 212 H (75-99) mg/dL Hemoglobin A1c 7.0 H (4.0-6.0) % Calcium (8.4-10.2) mg/dL CA 15-3 Antigen (0.0-32.3) U/mL CA 125 Antigen (0.0-30.1) U/mL 08/11/18 08/11/18 08/12/18 Range/Units 17:00 20:51 05:35 RBC 3.43 L (3.80-5.40) m/uL Hgb 9.7 L (11.4-16.0) gm/dL Hct 31.9 L (34.0-46.0) % MCHC 30.3 L (31.0-37.0) g/dL Lymphocytes # 0.3 L (1.0-4.8) k/uL APTT 31.2 H (22.0-30.0) sec Sodium (137-145) mmol/L Potassium (3.5-5.1) mmol/L BUN (7-17) mg/dL Creatinine (0.52-1.04) mg/dL Glucose (74-99) mg/dL POC Glucose (mg/dL) 185 H (75-99) mg/dL Hemoglobin A1c (4.0-6.0) % Calcium (8.4-10.2) mg/dL CA 15-3 Antigen (0.0-32.3) U/mL CA 125 Antigen (0.0-30.1) U/mL 08/12/18 08/12/18 08/12/18 Range/Units 05:35 05:35 06:23 RBC (3.80-5.40) m/uL Hgb (11.4-16.0) gm/dL Hct (34.0-46.0) % MCHC (31.0-37.0) g/dL Lymphocytes # (1.0-4.8) k/uL APTT (22.0-30.0) sec Sodium 132 L (137-145) mmol/L Potassium 6.3 H* (3.5-5.1) mmol/L BUN 38 H (7-17) mg/dL Creatinine 1.12 H (0.52-1.04) mg/dL Glucose 222 H (74-99) mg/dL POC Glucose (mg/dL) 211 H (75-99) mg/dL Hemoglobin A1c (4.0-6.0) % Calcium 8.1 L (8.4-10.2) mg/dL CA 15-3 Antigen 95.5 H (0.0-32.3) U/mL CA 125 Antigen 2318.2 H (0.0-30.1) U/mL 03/02/19 03/02/19 Range/Units 11:20 13:19 RBC (3.80-5.40) m/uL Hgb (11.4-16.0) gm/dL Hct (34.0-46.0) % MCHC (31.0-37.0) g/dL Lymphocytes # (1.0-4.8) k/uL APTT 43.7 H (22.0-30.0) sec Sodium (137-145) mmol/L Potassium (3.5-5.1) mmol/L BUN (7-17) mg/dL Creatinine (0.52-1.04) mg/dL Glucose (74-99) mg/dL POC Glucose (mg/dL) 331 H (75-99) mg/dL Hemoglobin A1c (4.0-6.0) % Calcium (8.4-10.2) mg/dL CA 15-3 Antigen (0.0-32.3) U/mL CA 125 Antigen (0.0-30.1) U/mL Microbiology - Last 24 Hours (Table) 08/11/18 12:00 Gram Stain - Preliminary Pleural Fluid Body Fluid Culture - Preliminary Assessment and Plan Plan: -Atrial fibrillation presently rate controlled patient was resumed on oral anticoagulation -Left-sided extensive pleural effusion with a refracture probably from the breast cancer and metastases. 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 She appears to have both the ovarian cancer and breast cancer. Patient had a removal of around 2.4 L of bloody fluid from thorax left side with residual moderate pleural effusion. Patient prognosis is extremely poor -Hyperkalemia secondary to potassium supplementation of lisinopril, patient does have renal failure as well. IV heparin will be discontinued patient was started on Eliquis -History of cervical cancer for which patient is on hormone therapy at this time. Pleural effusion can be secondary to malignancy -Type 2 diabetes mellitus patient will be started on sliding scale will hold off her home regimen -Coronary artery disease -Gastroesophageal reflux disease -Hypertension -Osteoarthritis -Sleep apnea -Depression Patient does have positive breast cancer markers
[2018-08-12 16:39] LABS: Glucose,Whole Blood 309 mg/dL (75-99)
[2018-08-12] MEDS ORDERED: IPRATROPIUM-ALBUTEROL 3 ML NEB INHALATION PRN (19:48)
[2018-08-12 20:36] LABS: Glucose,Whole Blood 342 mg/dL (75-99)
[2018-08-12] MEDS: PRAVASTATIN SODIUM 20 MG TAB PO SCH (20:36)
[2018-08-12] MEDS: CHOLECALCIFEROL 1,000 UNIT TAB PO SCH (20:36)
[2018-08-12] MEDS: LIDOCAINE 5% PATCH TOPICAL SCH (20:36)
[2018-08-13 02:49] LABS: Glucose,Whole Blood 194 mg/dL (75-99)
[2018-08-13] MEDS: SODIUM CHLORIDE 0.9% 1,000 ML IV SCH ×3 (06:14→17:07)
[2018-08-13] MEDS: METOPROLOL TARTRATE 25 MG TAB PO SCH ×5 (06:14→20:07)
[2018-08-13 06:19] LABS: Glucose,Whole Blood 184 mg/dL (75-99)
[2018-08-13] MEDS: PANTOPRAZOLE 40 MG TABLET PO SCH (06:20)
[2018-08-13] MEDS: INSULIN ASPART (NovoLOG) 100 UNIT/ML VIAL SQ SCH ×4 (06:20→21:22)
[2018-08-13 06:21] LABS: Basophils % (A) 0 %; Eosinophils % (A) 0 %; HCT 29.3 % (34.0-46.0); HGB 9.3 gm/dL (11.4-16.0); Hypochromasia Marked; Lymphocytes # (A) 0.5 k/uL (1.0-4.8); Lymphocytes % (A) 7 %; MCH 29.1 pg (25.0-35.0); MCHC 31.8 g/dL (31.0-37.0); MCV 91.7 fL (80.0-100.0); Mean Platelet Volume 6.4; Monocytes # (A) 0.5 k/uL (0-1.0); Monocytes % (A) 7 %; Neutrophils # (A) 6.3 k/uL (1.3-7.7); Neutrophils % (A) 84 %; Platelet Count 405 k/uL (150-450); RBC 3.19 m/uL (3.80-5.40); RDW 14.9 % (11.5-15.5); WBC 7.5 k/uL (3.8-10.6)
[2018-08-13 06:33] LABS: Calcium 8.1 mg/dL (8.4-10.2); Potassium 5.2 mmol/L (3.5-5.1)
[2018-08-13] MEDS: IPRATROPIUM-ALBUTEROL 3 ML NEB INHALATION SCH ×4 (07:47→20:29)
[2018-08-13] MEDS: lamoTRIgine 100 MG TAB PO SCH ×2 (09:39→20:07)
[2018-08-13] MEDS: APIXABAN 5 MG TAB PO SCH ×2 (09:39→20:08)
[2018-08-13] MEDS: AMIODARONE 200 MG TAB PO SCH ×3 (09:39→20:07)
[2018-08-13] MEDS: ANASTROZOLE 1 MG TAB PO SCH (09:39)
[2018-08-13] MEDS: GABAPENTIN 300 MG CAP PO SCH ×2 (09:39→20:07)
[2018-08-13] MEDS: DULoxetine HCL 60 MG CAPSULE.DR PO SCH (09:39)
--- NOTE | 2018-08-13 11:29 | P.PN ---
Subjective 68-year-old female admitted for lytic chest pain secondary to left-sided pleural effusion significant amount of pleural effusion will need therapy and diagnostic paracentesis, pulmonary was consulted. Patient also has A. fib with mildly elevated heart rate patient is still complaining of significant amount of pleuritic chest pain. 08/11/2018 Had an eye at length discussion with oncology as well as a pulmonary patient will undergo paracentesis today. Patient is hypokalemic probably contribution from a heparin drip. Patient will be started on D50 with 10 units of insulin along with calcium chloride and Kayexalate. Does have some shortness of breath 08/12/2018 Patient potassium continuous to be high patient received one more dose of capsulate patient chest pain improved respiratory status improved but her overall prognosis is extremely poor patient appears to ovarian cancer and breast cancer patient is being resumed on Eliquis as there is no further intervention that is being planned by pulmonary patient still has some moderate pleural effusion on the left side shouldn't breast cancer markers are definitely elevated patient underwent chemotherapy for ovarian cancer with carboplatinum and Taxol 08/13/2018 Patient is clinically doing well no overnight events potassium has come down to 5.2 serum creatinine improved patient's IV fluids will be discontinued will be resumed on oral diet. Overall prognosis is extremely poor patient is high risk for readmission because the malignancy her pleural effusion can recur. Constitutional: Denied any fatigue denied any fever. Cardio vascular: denied any chest pain, palpitations Gastrointestinal denied any nausea vomiting Pulmonary: As mentioned above Neurologic denied any new focal deficits All inpatient medications were reviewed and appropriate changes in these medications as dictated in the interval history and assessment and plan. Objective - Vital Signs Vital signs: Vital Signs Temp 98 F 08/13/18 08:00 Pulse 94 08/13/18 08:00 Resp 20 08/13/18 08:00 BP 102/46 08/13/18 08:00 Pulse Ox 95 08/13/18 08:00 Intake & Output 08/12/18 08/13/18 08/13/18 18:59 06:59 18:59 Intake Total 506.887 240 Output Total 150 400 Balance 356.887 -400 240 Weight 101.1 kg Intake: Intake, IV Titration 26.887 Amount Heparin Sod,Pork in 0.45% 26.887 NaCl 25,000 unit In 0.45 % NaCl 1 250ml.bag @ 9 UNITS/KG/HR 9.34 mls/hr IV .Q24H [facility] Rx#: [id number] Oral 480 240 Output: Urine 150 400 Other: Voiding Method Bedside Commode # Voids 2 1 1 - Exam PHYSICAL EXAMINATION: GENERAL: The patient is alert and oriented x3, not in any acute distress. Well developed, well nourished. HEENT: Pupils are round and equally reacting to light. EOMI. No scleral icterus. No conjunctival pallor. Normocephalic, atraumatic. No pharyngeal erythema. No thyromegaly. CARDIOVASCULAR: S1 and S2 present. No murmurs, rubs, or gallops. PULMONARY: Good air entry bilateral lung smith no wheezing or crackles ABDOMEN: Soft, nontender, nondistended, normoactive bowel sounds. No palpable organomegaly. MUSCULOSKELETAL: No joint swelling or deformity. EXTREMITIES: No cyanosis, clubbing, or pedal edema. NEUROLOGICAL: Gross neurological examination did not reveal any focal deficits. SKIN: No rashes. - Labs CBC & Chem 7: 08/13/18 05:26 08/13/18 05:26 Labs: Abnormal Lab Results - Last 24 Hours (Table) 08/12/18 08/12/18 08/12/18 Range/Units 05:35 11:20 13:19 RBC (3.80-5.40) m/uL Hgb (11.4-16.0) gm/dL Hct (34.0-46.0) % Lymphocytes # (1.0-4.8) k/uL APTT 43.7 H (22.0-30.0) sec Sodium (137-145) mmol/L Potassium (3.5-5.1) mmol/L BUN (7-17) mg/dL Glucose (74-99) mg/dL POC Glucose (mg/dL) 331 H (75-99) mg/dL Calcium (8.4-10.2) mg/dL CA 125 Antigen 2318.2 H (0.0-30.1) U/mL 08/12/18 08/12/18 08/12/18 Range/Units 16:04 16:26 20:35 RBC (3.80-5.40) m/uL Hgb (11.4-16.0) gm/dL Hct (34.0-46.0) % Lymphocytes # (1.0-4.8) k/uL APTT (22.0-30.0) sec Sodium (137-145) mmol/L Potassium 5.9 H (3.5-5.1) mmol/L BUN (7-17) mg/dL Glucose (74-99) mg/dL POC Glucose (mg/dL) 309 H 342 H (75-99) mg/dL Calcium (8.4-10.2) mg/dL CA 125 Antigen (0.0-30.1) U/mL 08/12/18 08/13/18 08/13/18 Range/Units 22:56 02:48 05:26 RBC 3.19 L (3.80-5.40) m/uL Hgb 9.3 L (11.4-16.0) gm/dL Hct 29.3 L (34.0-46.0) % Lymphocytes # 0.5 L (1.0-4.8) k/uL APTT (22.0-30.0) sec Sodium (137-145) mmol/L Potassium 5.2 H (3.5-5.1) mmol/L BUN (7-17) mg/dL Glucose (74-99) mg/dL POC Glucose (mg/dL) 194 H (75-99) mg/dL Calcium (8.4-10.2) mg/dL CA 125 Antigen (0.0-30.1) U/mL 08/13/18 08/13/18 Range/Units 05:26 06:17 RBC (3.80-5.40) m/uL Hgb (11.4-16.0) gm/dL Hct (34.0-46.0) % Lymphocytes # (1.0-4.8) k/uL APTT (22.0-30.0) sec Sodium 135 L (137-145) mmol/L Potassium 5.2 H (3.5-5.1) mmol/L BUN 29 H (7-17) mg/dL Glucose 178 H (74-99) mg/dL POC Glucose (mg/dL) 184 H (75-99) mg/dL Calcium 8.1 L (8.4-10.2) mg/dL CA 125 Antigen (0.0-30.1) U/mL Microbiology - Last 24 Hours (Table) 08/11/18 12:00 Gram Stain - Preliminary Pleural Fluid Body Fluid Culture - Preliminary Assessment and Plan Plan: -Atrial fibrillation presently rate controlled patient was resumed on oral anticoagulation -Left-sided extensive pleural effusion with a refracture probably from the breast cancer and metastases. 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 She appears to have both the ovarian cancer and breast cancer. Patient had a removal of around 2.4 L of bloody fluid from thorax left side with residual moderate pleural effusion. Patient prognosis is extremely poor -Hyperkalemia secondary to potassium supplementation of lisinopril, patient does have renal failure as well. Patient was started back on on Eliquis. Renal failure improved IV fluids will be discussed in patient will be encouraged to drink water -Acute renal failure prerenal azotemia improved now -History of cervical cancer for which patient is on hormone therapy at this time. Pleural effusion can be secondary to malignancy -Type 2 diabetes mellitus patient will be started on sliding scale will hold off her home regimen -Coronary artery disease -Gastroesophageal reflux disease -Hypertension -Osteoarthritis -Sleep apnea -Depression Patient does have positive breast cancer markers
[2018-08-13 11:40] LABS: Glucose,Whole Blood 201 mg/dL (75-99)
[2018-08-13 16:32] LABS: Glucose,Whole Blood 190 mg/dL (75-99)
[2018-08-13] MEDS: PRAVASTATIN SODIUM 20 MG TAB PO SCH (20:07)
[2018-08-13] MEDS: CHOLECALCIFEROL 1,000 UNIT TAB PO SCH (20:08)
[2018-08-13] MEDS: LIDOCAINE 5% PATCH TOPICAL SCH (20:08)
[2018-08-13 20:20] LABS: Glucose,Whole Blood 236 mg/dL (75-99)
[2018-08-14] MEDS: SODIUM CHLORIDE 0.9% 1,000 ML IV SCH ×2 (00:35→17:50)
[2018-08-14 05:47] LABS: Glucose,Whole Blood 122 mg/dL (75-99)
[2018-08-14] MEDS: INSULIN ASPART (NovoLOG) 100 UNIT/ML VIAL SQ SCH ×3 (06:29→17:05)
[2018-08-14] MEDS: PANTOPRAZOLE 40 MG TABLET PO SCH (06:31)
[2018-08-14 08:07] VITALS: PULSE 89; TEMP 98.9
[2018-08-14 08:24] LABS: Basophils % (A) 0 %; Eosinophils # (A) 0.1 k/uL (0-0.7); Eosinophils % (A) 2 %; HCT 31.4 % (34.0-46.0); HGB 9.7 gm/dL (11.4-16.0); Hypochromasia Marked; Lymphocytes # (A) 0.7 k/uL (1.0-4.8); Lymphocytes % (A) 11 %; MCH 28.6 pg (25.0-35.0); MCHC 30.8 g/dL (31.0-37.0); MCV 92.7 fL (80.0-100.0); Mean Platelet Volume 6.5; Monocytes # (A) 0.5 k/uL (0-1.0); Monocytes % (A) 8 %; Neutrophils # (A) 5.1 k/uL (1.3-7.7); Neutrophils % (A) 77 %; Platelet Count 382 k/uL (150-450); RBC 3.38 m/uL (3.80-5.40); RDW 15.2 % (11.5-15.5); WBC 6.6 k/uL (3.8-10.6)
[2018-08-14 08:35] LABS: Calcium 8.3 mg/dL (8.4-10.2)
[2018-08-14] MEDS: IPRATROPIUM-ALBUTEROL 3 ML NEB INHALATION SCH ×3 (08:45→16:00)
[2018-08-14] MEDS: GABAPENTIN 300 MG CAP PO SCH (09:28)
[2018-08-14] MEDS: lamoTRIgine 100 MG TAB PO SCH (09:28)
[2018-08-14] MEDS: METOPROLOL TARTRATE 25 MG TAB PO SCH ×3 (09:29→17:04)
[2018-08-14] MEDS: DULoxetine HCL 60 MG CAPSULE.DR PO SCH (09:29)
[2018-08-14] MEDS: APIXABAN 5 MG TAB PO SCH (09:29)
[2018-08-14] MEDS: AMIODARONE 200 MG TAB PO SCH ×2 (09:49→17:05)
[2018-08-14] MEDS: ANASTROZOLE 1 MG TAB PO SCH (09:49)
[2018-08-14 09:53] VITALS: RESP 18
[2018-08-14 11:54] LABS: Glucose,Whole Blood 199 mg/dL (75-99)
--- NOTE | 2018-08-14 12:52 | P.DS ---
Providers Date of admission: 08/09/18 01:05 Expected date of discharge: 08/14/18 Attending physician: Andria Kessler Consults: 08/09/18 00:58 Consult Physician Stat Consulting Provider: Hansel Chisholm Consult Reason/Comments: Chest pain, A. fib with RVR Do you want consulting provider notified?: Already Contacted 08/09/18 12:19 Consult Physician Routine Consulting Provider: Alicia Fields Consult Reason/Comments: left sided Pleural effusion Do you want consulting provider notified?: Yes 08/10/18 13:00 Consult Physician Routine Consulting Provider: Marcos Sellers Consult Reason/Comments: Hx Breast CA and Mass to spleen, possible mets to lungs, pending CT. Do you want consulting provider notified?: Yes Primary care physician: Kael Jon [facility] Course: Final Diagnoses: -Atrial fibrillation, rate controlled, resumed on oral anticoagulation -Left-sided extensive pleural effusion with recurrence probably from the breast cancer and metastases. Status post therapeutic and diagnostic paracentesis with removal of approximately 2.4 L bloody fluid from thorax left side with residual moderate pleural effusion. Suspect malignant pleural effusion. She appears to have both the ovarian cancer and breast cancer. Prognosis is extremely poor -Hyperkalemia secondary to potassium supplementation and lisinopril, discontinued.improved -Acute renal failure prerenal azotemia improved now -History of cervical cancer on hormone therapy at this time. -Type 2 diabetes mellitus patient -Coronary artery disease -Gastroesophageal reflux disease -Hypertension -Osteoarthritis -Sleep apnea -Depression -Positive breast cancer markers Hospital course:68-year-old female admitted for lytic chest pain secondary to left-sided pleural effusion significant amount of pleural effusion will need therapy and diagnostic paracentesis, pulmonary was consulted. Patient also has A. fib with mildly elevated heart rate patient is still complaining of significant amount of pleuritic chest pain. 08/11/2018 Had an eye at length discussion with oncology as well as a pulmonary patient will undergo paracentesis today. Patient is hypokalemic probably contribution from a heparin drip. Patient will be started on D50 with 10 units of insulin along with calcium chloride and Kayexalate. Does have some shortness of breath 08/12/2018 Patient potassium continuous to be high patient received one more dose of capsulate patient chest pain improved respiratory status improved but her overall prognosis is extremely poor patient appears to ovarian cancer and breast cancer patient is being resumed on Eliquis as there is no further intervention that is being planned by pulmonary patient still has some moderate pleural effusion on the left side shouldn't breast cancer markers are definitely elevated patient underwent chemotherapy for ovarian cancer with carboplatinum and Taxol 08/13/2018 Patient is clinically doing well no overnight events potassium has come down to 5.2 serum creatinine improved patient's IV fluids will be discontinued will be resumed on oral diet. Overall prognosis is extremely poor patient is high risk for readmission because the malignancy her pleural effusion can recur. 08/14/2018 patient has been cleared by all consults for discharge. Pleural cx/ cytology/pathology pending. Patient is high risk for both readmission and recurrent pleural effusions. Patient is being discharged to [facility] subacute rehab in a stable condition with guarded prognosis. EXAMINATION: GENERAL:alert and oriented x3, not in any acute distress. CARDIOVASCULAR: S1 and S2 present. No murmurs, rubs, or gallops. PULMONARY: Good air entry bilateral lung smith no wheezing or crackles ABDOMEN: Soft, nontender, nondistended, normoactive bowel sounds. No palpable organomegaly. NEUROLOGICAL: Gross neurological examination did not reveal any focal deficits. The impression and plan of care has been dictated as directed. : I performed a history and examination of this patient, discussed the same with the dictator. I agree with the dictator's note ,documented as a scribe. Any additional findings or plans will be noted. Time taken: 35 minutes Patient Condition at Discharge: Stable Plan - Discharge Summary Discharge Rx Participant: No New Discharge Prescriptions: New Ipratropium-Albuterol Nebulize [Duoneb 0.5 mg-3 mg/3 ml Soln] 3 ml INHALATION RT-QID ampul.neb Ipratropium-Albuterol Nebulize [Duoneb 0.5 mg-3 mg/3 ml Soln] 3 ml INHALATION Q4H PRN ampul.neb PRN Reason: Shortness Of Breath Or Wheezing Lidocaine 5% Patch [Lidoderm 5% Patch] 1 patch TOPICAL Q24H patch Metoprolol Tartrate [Lopressor] 25 mg PO QID tab INSULIN LISPRO (HumaLOG) [humaLOG] 0 unit SQ ACHS #1 vial Continue Cholecalciferol [Vitamin D3] 4,000 unit PO HS lamoTRIgine [LaMICtal] 150 mg PO Q12H Insulin Glargine [Lantus] 20 unit SQ DAILY DULoxetine HCL [Cymbalta] 60 mg PO DAILY Anastrozole [Arimidex] 1 mg PO DAILY Acetaminophen Tab [Tylenol] 650 mg PO Q4HR PRN #0 tab PRN Reason: Mild Pain Amiodarone [Cordarone] 200 mg PO DAILY Apixaban [Eliquis] 5 mg PO BID Bisacodyl [Dulcolax] 10 mg RECTAL DAILY PRN PRN Reason: Constipation Magnesium Hydroxide [Milk of Magnesia] 30 ml PO HS PRN PRN Reason: Constipation Magnesium Oxide [Mag-Ox] 400 mg PO HS Nitroglycerin Sl Tabs [Nitrostat] 0.4 mg SUBLINGUAL Q5M PRN PRN Reason: Chest Pain Pravastatin Sodium [Pravachol] 20 mg PO HS@1999 Omeprazole 20 mg PO DAILY Gabapentin [Neurontin] 300 mg PO BID #6 cap Discontinued INSULIN LISPRO (HumaLOG) [humaLOG] 3 units SQ AC-TID@, Lisinopril [Zestril] 5 mg PO DAILY Discharge Medication List Anastrozole [Arimidex] 1 mg PO DAILY 06/22/16 [History] Cholecalciferol [Vitamin D3] 4,000 unit PO HS 06/22/16 [History] DULoxetine HCL [Cymbalta] 60 mg PO DAILY 06/22/16 [History] Insulin Glargine [Lantus] 20 unit SQ DAILY 06/22/16 [History] lamoTRIgine [LaMICtal] 150 mg PO Q12H 06/22/16 [History] Acetaminophen Tab [Tylenol] 650 mg PO Q4HR PRN #0 tab 06/25/16 [Rx] Amiodarone [Cordarone] 200 mg PO DAILY 07/26/17 [History] Apixaban [Eliquis] 5 mg PO BID 07/26/17 [History] Bisacodyl [Dulcolax] 10 mg RECTAL DAILY PRN 07/26/17 [History] Magnesium Hydroxide [Milk of Magnesia] 30 ml PO HS PRN 07/26/17 [History] Magnesium Oxide [Mag-Ox] 400 mg PO HS 07/26/17 [History] Nitroglycerin Sl Tabs [Nitrostat] 0.4 mg SUBLINGUAL Q5M PRN 07/26/17 [History] Pravastatin Sodium [Pravachol] 20 mg PO HS@2000 07/26/17 [History] Omeprazole 20 mg PO DAILY 08/08/18 [History] Gabapentin [Neurontin] 300 mg PO BID #6 cap 08/14/18 [Rx] INSULIN LISPRO (HumaLOG) [humaLOG] 0 unit SQ ACHS #1 vial 08/14/18 [Rx] Ipratropium-Albuterol Nebulize [Duoneb 0.5 mg-3 mg/3 ml Soln] 3 ml INHALATION Q4H PRN ampul.neb 08/14/18 [Rx] Ipratropium-Albuterol Nebulize [Duoneb 0.5 mg-3 mg/3 ml Soln] 3 ml INHALATION RT -QID ampul.neb 08/14/18 [Rx] Lidocaine 5% Patch [Lidoderm 5% Patch] 1 patch TOPICAL Q24H patch 08/14/18 [Rx] Metoprolol Tartrate [Lopressor] 25 mg PO QID tab 08/14/18 [Rx] Follow up Appointment(s)/Referral(s): Dr. David Oncology [Other] - 1 Week Kael Jon MD [Primary Care Provider] - 3 Days [facility], [NON-STAFF] - 1 Week (Patient resides on dementia unit.) Alicia Fields MD [STAFF PHYSICIAN] - 2 Weeks Patient Instructions/Handouts: A-fib (Atrial Fibrillation) (DC), Pleural Effusion (DC) Activity/Diet/Wound Care/Special Instructions: [facility] 2lNC O2 DIet: consist. Carb Activity: as tolerated CBC, BMP in 3 days. Final fluid cytology/pathology to PCP and pulmonary Discharge Disposition: TRANSFER TO SNF/ECF
[2018-08-14 16:15] LABS: Glucose,Whole Blood 216 mg/dL (75-99)
[2018-08-14 17:19] VITALS: BP 116/90
== END 2018-08-14 18:40 | DRG 598 ==
LOC: EC 23:00 → 3SCARD 08-09 01:05
PROVIDERS: ADMIT Hospitalist; ATTEND Hospitalist
PROC: 0W9B3ZZ Drainage of Left Pleural Cavity, Percutaneous Approach (ICD-10-PCS; principal; 2018-08-11)
DX: C50.919 Malignant neoplasm of unspecified site of unspecified female breast (principal); J91.0 Malignant pleural effusion; C79.51 Secondary malignant neoplasm of bone; J98.11 Atelectasis; J94.8 Other specified pleural conditions; C78.89 Secondary malignant neoplasm of other digestive organs; N17.9 Acute kidney failure, unspecified; E11.9 Type 2 diabetes mellitus without complications; E87.5 Hyperkalemia; F03.90 Unspecified dementia, unspecified severity, without behavioral disturbance, psychotic disturbance, mood disturbance, and anxiety; F31.9 Bipolar disorder, unspecified; G47.30 Sleep apnea, unspecified; I10 Essential (primary) hypertension; I25.10 Atherosclerotic heart disease of native coronary artery without angina pectoris; I45.10 Unspecified right bundle-branch block; I48.2 Chronic atrial fibrillation; K21.9 Gastro-esophageal reflux disease without esophagitis; M19.90 Unspecified osteoarthritis, unspecified site; R09.02 Hypoxemia; Z79.01 Long term (current) use of anticoagulants; Z79.4 Long term (current) use of insulin; Z79.811 Long term (current) use of aromatase inhibitors; Z79.899 Other long term (current) drug therapy; Z85.41 Personal history of malignant neoplasm of cervix uteri; Z85.42 Personal history of malignant neoplasm of other parts of uterus; Z85.43 Personal history of malignant neoplasm of ovary; Z90.10 Acquired absence of unspecified breast and nipple; Z90.710 Acquired absence of both cervix and uterus; Z95.5 Presence of coronary angioplasty implant and graft
CPT/HCPCS: 36415; 71045; 71260; 76604; 80048; 80053; 82945; 83036; 83615; 83690; 83735; 83880; 84132; 84157; 84484; 85025; 85610; 85730; 86300; 86304; 87070; 87205; 88108; 88305; 89050; 93005; 93306; 94640; 94760; 96361; 96365; 96366; 96376; 99285